=== PATIENT | male | born 1935 | race Caucasian/White ===

== ENCOUNTER 2019-01-11 17:26 | Inpatient (IN) | payer MEDICARE ==
[2019-01-11 17:26] VITALS: BMI 23.3
[2019-01-11] MEDS ORDERED: Iohexol 240 (50 ml) PO ONE (18:01)
--- NOTE | 2019-01-11 18:13 | ED PDOC ---
HPI: Abdomen Time Seen by Provider: 01/11/19 17:35 Chief Complaint (Nursing): Abdominal Pain Chief Complaint (Provider): Abdominal Pain History Per: Patient History/Exam Limitations: no limitations Onset/Duration Of Symptoms: Days (yesterday) Current Symptoms Are (Timing): Still Present Location Of Pain/Discomfort: RLQ Quality Of Discomfort: "Pain" Associated Symptoms: Vomiting (x1). denies: Nausea, Diarrhea, Chest Pain, Constipation Additional Complaint(s): 83 year old male with no significant past medical history presents to the ED with right sided abdominal pain onset yesterday. Patient reports he had 1 episode of green vomit yesterday but has not vomited since. He denies any nausea , chest pain, shortness of breath, headache, dizziness or groin pain. He did not take any medications for relief. PMD: none provided Past Medical History Reviewed: Historical Data, Nursing Documentation, Vital Signs Vital Signs: Last Vital Signs Temp 98.5 F 01/11/19 17:28 Pulse 97 H 01/11/19 17:28 Resp 20 01/11/19 17:28 BP 141/84 01/11/19 17:28 Pulse Ox 100 01/11/19 17:28 - Medical History PMH: HTN - Surgical History Other surgeries: prostate surgery - Family History Family History: States: Unknown Family Hx - Immunization History Hx Tetanus Toxoid Vaccination: No Hx Influenza Vaccination: No Hx Pneumococcal Vaccination: No - Home Medications Home Medications: Ambulatory Orders Medication Instructions Recorded No Known Home Med 06/14/18 - Allergies Allergies/Adverse Reactions: Allergies Allergy/AdvReac Type Severity Reaction Status Date / Time No Known Allergies Allergy Verified 06/14/18 11:47 Review of Systems ROS Statement: Except As Marked, All Systems Reviewed And Found Negative Cardiovascular: Negative for: Chest Pain Respiratory: Negative for: Shortness of Breath Gastrointestinal: Positive for: Vomiting, Abdominal Pain. Negative for: Nausea, Diarrhea, Constipation Genitourinary Male: Positive for: Other (no groin pain) Neurological: Negative for: Headache, Dizziness Physical Exam - Reviewed Nursing Documentation Reviewed: Yes Vital Signs Reviewed: Yes - Physical Exam Appears: Positive for: Non-toxic, No Acute Distress Head Exam: Positive for: ATRAUMATIC, NORMOCEPHALIC Skin: Positive for: Normal Color, Warm, Dry Eye Exam: Positive for: Normal appearance, EOMI, PERRL ENT: Positive for: Normal ENT Inspection Neck: Positive for: Normal, Painless ROM, Supple Cardiovascular/Chest: Positive for: Regular Rate, Rhythm. Negative for: Murmur Respiratory: Positive for: Normal Breath Sounds. Negative for: Respiratory Distress Gastrointestinal/Abdominal: Positive for: Tenderness (right lower quadrant tenderness), Guarding (mild) Back: Positive for: Normal Inspection. Negative for: L CVA Tenderness, R CVA Tenderness Extremity: Positive for: Normal ROM (upper and lower). Negative for: Tende rness, Pedal Edema, Deformity Neurological/Psych: Positive for: Awake, Alert, Oriented - Laboratory Results Result Diagrams: 01/11/19 17:45 01/11/19 17:45 Interpretation Of Abn Labs: 27 wbc, 2.2 cr - ECG ECG: Positive for: Interpreted By Me, Viewed By Me ECG Rhythm: Positive for: Normal ST Segment, Sinus Rhythm O2 Sat by Pulse Oximetry: 100 (RA) Pulse Ox Interpretation: Normal - Radiology X-Ray: Interpreted by Me, Viewed By Me X-Ray Interpretation: No Acute Disease - Progress ED Course And Treament: 1824: Stable. AAOx3. Spoke with ophthalmic surgical assistant. Will see pt. in the ER. Antibiotics started for possible appendicitis. VBG pending. 1900: WBC elevated. Dr. Moser to fu on ct. AAOx3. No IV contrast as pt. gfr abnormal. Fluids going. Lactate wnl. Septic, but not code sepsis at this time. Medical Decision Making Medical Decision Making: Time: 1757 Plan: --EKG --VBG --CT abdomen and pelvis --CMP --BNP --Lipase --Magnesium --Phosphorus --Troponin --U dip --CBC --PTT --PT/INR --CXR --Blood culture --Urine culture --Pepcid --Toradol --UA Time: 1848 CXR: FINDINGS: LUNGS: The lungs are well inflated and clear. PLEURA: No large pleural effusions or pneumothorax. CARDIOVASCULAR: The heart is normal in size. No aortic atherosclerotic calcifications present. OSSEOUS STRUCTURES: Within normal limits for the patient's age. VISUALIZED UPPER ABDOMEN: Normal. OTHER FINDINGS: None. IMPRESSION: No active pulmonary disease. ScribeAttestation: Documented byFrancine Pahn, acting as a scribe for Yanick Casey MD. Provider ScribeAttestation: All medical record entries made by the Scribe were at my direction and personally dictated by me. I have reviewed the chart and agree that the record accurately reflects my personal performance of the history, physical exam, medical decision making, and the department course for this patient. I have also personally directed, reviewed, and agree with the discharge instructions and disposition. Disposition - Clinical Impression Clinical Impression: Abdominal pain - Patient ED Disposition Is Patient to be Admitted: Transfer of Care - Disposition Disposition Time: 19:02 Condition: FAIR Patient Signed Over To: Walter Sommer
[2019-01-11] MEDS: Sodium Chloride 0.9% 1,000 ML IV SCH (18:20)
[2019-01-11] MEDS ORDERED: Piperacillin/Tazobact 3.375 GM in Sodium Chloride 0.9% 100 ML IV STA (18:23)
--- NOTE | 2019-01-11 18:27 | RAD ---
Date of service: 01/11/2019 HISTORY: Sepsis Patient COMPARISON: No prior. FINDINGS: LUNGS: The lungs are well inflated and clear. PLEURA: No large pleural effusions or pneumothorax. CARDIOVASCULAR: The heart is normal in size. No aortic atherosclerotic calcifications present. OSSEOUS STRUCTURES: Within normal limits for the patient's age. VISUALIZED UPPER ABDOMEN: Normal. OTHER FINDINGS: None. IMPRESSION: No active pulmonary disease.
[2019-01-11 18:29] LABS: BASO % 0.1 % (0.0-2.0); HEMOGLOBIN 14.1 g/dL (12.0-18.0); LYMPH # 1.2 K/uL (1.0-4.3); LYMPH % 4.3 % (20.0-40.0); MEAN CELL VOLUME 89.9 fl (80.0-94.0); MEAN CORPUSCULAR HEMOGLOBIN 29.6 pg (27.0-31.0); MEAN CORPUSCULAR HGB CONC 32.9 g/dL (33.0-37.0); MEAN PLATELET VOLUME 9.1 fl (7.2-11.7); MONO # 2.1 K/uL (0.0-0.8); MONO % 7.6 % (0.0-10.0); NEUT # 23.8 K/uL (1.8-7.0); PLATELET COUNT 267 K/uL (130-400); RBC 4.78 Mil/uL (4.40-5.90); RED CELL DISTRIBUTION WIDTH 14.4 % (11.5-14.5)
[2019-01-11 18:30] LABS: VENOUS BLOOD GAS BASE EXCESS 1.3 mmol/L (0.0-2.0); VENOUS BLOOD GAS PCO2 36 mmHg (40-60); VENOUS BLOOD GAS PO2 24 mm/Hg (30-55); VENOUS BLOOD PH 7.45 (7.32-7.43)
[2019-01-11] MEDS ORDERED: Piperacillin/Tazobact 3.375 gm Inj IVPB ONE (18:31)
[2019-01-11 18:35] LABS: INR 1.3; PROTHROMBIN TIME 14.9 Seconds (9.8-13.1)
[2019-01-11 18:38] LABS: PARTIAL THROMBOPLASTIN TIME 34.7 Seconds (25.6-37.1)
[2019-01-11 18:39] LABS: ALB/GLOB RATIO 1.2 (1.0-2.1); ALBUMIN 4.4 g/dL (3.5-5.0); CALCIUM 9.3 mg/dL (8.4-10.2)
[2019-01-11 18:44] LABS: VENOUS BLOOD GAS BASE EXCESS -0.2 mmol/L (0.0-2.0); VENOUS BLOOD GAS PCO2 37 mmHg (40-60); VENOUS BLOOD GAS PO2 44 mm/Hg (30-55); VENOUS BLOOD PH 7.42 (7.32-7.43)
[2019-01-11 18:50] LABS: TROPONIN I 0.039 ng/mL (0.00-0.120)
--- NOTE | 2019-01-11 19:18 | ED PDOC ---
- Laboratory Results Result Diagrams: 01/12/19 04:25 01/12/19 04:25 Lab Results: pO2 44 mm/Hg (30-55) 01/11/19 18:40 VBG pH 7.42 (7.32-7.43) 01/11/19 18:40 VBG pCO2 37 mmHg (40-60) L 01/11/19 18:40 VBG HCO3 24.3 mmol/L 01/11/19 18:40 VBG Total CO2 25.1 mmol/L (22-28) 01/11/19 18:40 VBG O2 Sat (Calc) 88.0 % (40-65) H 01/11/19 18:40 VBG Base Excess -0.2 mmol/L (0.0-2.0) L 01/11/19 18:40 VBG Potassium 4.2 mmol/L (3.6-5.2) 01/11/19 18:40 Sodium 136.0 mmol/L (132-148) 01/11/19 18:40 Chloride 103.0 mmol/L (98-107) 01/11/19 18:40 Glucose 136 mg/dL (75-110) H 01/11/19 18:40 Lactate 1.8 mmol/L (0.7-2.1) 01/11/19 18:40 FiO2 21.0 % 01/11/19 18:40 Crit Value Called To Dr lashon casey 01/11/19 18:18 Crit Value Called By Zoey henriquez rt 01/11/19 18:18 Crit Value Read Back Y 01/11/19 18:18 Blood Gas Notified Time 1830 01/11/19 18:18 PT 14.9 Seconds (9.8-13.1) H 01/11/19 17:45 INR 1.3 01/11/19 17:45 APTT 34.7 Seconds (25.6-37.1) 01/11/19 17:45 Troponin I 0.0390 ng/mL (0.00-0.120) 01/11/19 17:45 NT-Pro-B Natriuret Pep 7620 pg/ml (0-900) H 01/11/19 17:45 Total Bilirubin 1.4 mg/dl (0.2-1.3) H 01/11/19 17:45 AST 38 U/L (17-59) 01/11/19 17:45 ALT 78 U/L (21-72) H 01/11/19 17:45 Alkaline Phosphatase 109 U/L (38-126) 01/11/19 17:45 Total Protein 8.1 G/DL (6.3-8.2) 01/11/19 17:45 Albumin 4.4 g/dL (3.5-5.0) 01/11/19 17:45 Globulin 3.7 gm/dL (2.2-3.9) 01/11/19 17:45 Albumin/Globulin Ratio 1.2 (1.0-2.1) 01/11/19 17:45 Lipase 19 U/L (23-300) L 01/11/19 17:45 - ECG O2 Sat by Pulse Oximetry: 100 (RA) Pulse Ox Interpretation: Normal Medical Decision Making Medical Decision Making: Time: 1899 --Patient signed out to this provider by Dr. Casey, pending CT, surgical consult , and final disposition. Patient evaluated at beside, vitals are stable. Patient resting in bed comfortably. Time: 2017 --Dr. Valverde, surgical assist evaluated patient in ED. She will discuss findings with her attending in Dr. Kim. Time: 2199 CT Abdomen and Pelvis FINDINGS: LUNG BASES: The lung bases appear clear. No pleural effusions are seen. LIVER: Unremarkable. GALLBLADDER AND BILE DUCTS: Tiny cholelithiasis is noted. There is gallbladder wall thickening noted which m easured up to 6.4 mm transversely. Pericholecystic haziness is present thought compatible with acute cholecystitis. No biliary ductal dilatation is evident. PANCREAS: Unremarkable. SPLEEN: Unremarkable. ADRENAL GLANDS: Unremarkable. KIDNEYS, URETERS, AND BLADDER: The kidneys appear within normal limits. There is no hydronephrosis or hydroureter. There is a large 1.7 x 1.5 cm calculus in the lower right renal pole. A 2.7 x 2.8 cm cyst is noted in the mid left renal pole. The urinary bladder appeared normal in size and configuration. STOMACH AND BOWEL: Unremarkable appearance of the stomach and bowel. No evidence of bowel obstruction. There is diverticulosis coli seen in the sigmoid and rectosigmoid colon. There is mucosal wall thickening seen in these regions and pericolonic haziness thought compatible with acute diverticulitis. No definite microperforation or pericolonic abscess formation is identified. APPENDIX: No evidence of acute appendicitis on CT examination. PERITONEUM: No free fluid. No free air. A small left inguinal hernia is identified which contains fat. LYMPH NODES: No lymphadenopathy is evident. REPRODUCTIVE: Status post prostatectomy. VASCULATURE: No evidence of abdominal aortic aneurysm. Minor atherosclerotic vascular plaquing is present. BONES: No aggressive appearing osseous lesion. No acute osseous pathology evident. 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 IMPRESSION: 1. Evidence of cholelithiasis. 2. Gallbladder wall thickening and isak-cholecystic haziness thought compatible with acute cholecystitis. 3. Diverticulosis coli without evidence of acute diverticulitis in the sigmoid and rectosigmoid regions. 4. 1.7 cm non-obstructing calculus in the lower right renal pole. 5. 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 6. Status post prostatectomy. Time: 2247 --Case discussed with Dr. Romo, who wants the patient admitted to hospitalist. Will order a high DA scan for gallbladder. Otherwise, he agrees with the plan of care. ScribeAttestation: Documented byFrancine Phan, acting as a scribe for Walter Sommer MD. Provider ScribeAttestation: All medical record entries made by the Scribe were at my direction and personally dictated by me. I have reviewed the chart and agree that the record accurately reflects my personal performance of the history, physical exam, medical decision making, and the department course for this patient. I have also personally directed, reviewed, and agree with the discharge instructions and disposition. Disposition Discussed With DrAmado: Karthik Hare Counseled Patient/Family Regarding: Studies Performed, Diagnosis - Clinical Impression Clinical Impression: Abdominal pain, Acute cholecystitis, Acute renal injury due to sepsis, Severe sepsis - POA Present On Arrival: None - Disposition Disposition: Admitted as In-Patient Disposition Time: 22:30 Condition: FAIR
[2019-01-11 19:46] LABS: BANDS 1 % (0-2); EOSINOPHIL 1 % (0-7); LYMPHOCYTE 4 % (20-50); MONOCYTE 8 % (0-10); NEUTROPHIL 86 % (42-75); PLATELET ESTIMATE NORMAL (NORMAL); TOTAL CELLS COUNTED 100
[2019-01-11] MEDS ORDERED: Vancomycin 1 g Inj ONE (22:10)
--- NOTE | 2019-01-11 22:47 | CP.PCM.CON ---
<Christine Valverde - Last Filed: 01/11/19 22:40> History of Present Illness - History of Present Illness History of Present Illness: General Surgery-Dr. Romo 83yo M w/ hx of nephrolithiasis and prostatectomy 20 years ago, presenting with RLQ abdominal pain and vomiting x1 day. Per the patient's at bedside pt began complaining of RLQ abdominal pain yesterday morning, moderate and constant in nature, 03/04. He had associated vomiting of bilious fluid and not able to keep anything down. He denies any fevers/chills, SOB/chest pain, Diarrhea/Constipation. Pt states his last BM was yesterday and was normal. He does not recall last time he was able to urinate. PMH: Nephrolithiasis, does not see a DR regularly PSH: Prostatectomy 20 years ago, pt is unsure if this was for cancer No home meds NKDA Never Smoked, Occasional ETOH, NO drug use Review of Systems - Review of Systems All systems: reviewed and no additional remarkable complaints except (as per HPI) Past Patient History - Infectious Disease Hx of Infectious Diseases: None - Past Social History Smoking Status: Never Smoked - CARDIAC Hx Hypertension: Yes - GENITOURINARY/GYNECOLOGICAL Hx Genitourinary Disorders: Yes Hx Prostate Problems: Yes - PSYCHIATRIC Hx Substance Use: No - SURGICAL HISTORY Hx Surgeries: Yes Other/Comment: PROSTATE? - ANESTHESIA Hx Anesthesia: Yes Hx Anesthesia Reactions: No Meds Allergies/Adverse Reactions: Allergies Allergy/AdvReac Type Severity Reaction Status Date / Time No Known Allergies Allergy Verified 06/14/18 11:47 - Medications Medications: Current Medications Sodium Chloride (Sodium Chloride 0.9%) 1,000 mls @ 1,000 mls/hr IV .Q1H NANETTE Last Admin: 01/11/19 18:20 Dose: 1,000 mls/hr Vancomycin HCl 1 gm/ Sodium (Chloride) 250 mls @ 250 mls/hr IVPB STAT NANETTE; Protocol Last Admin: 01/11/19 22:13 Dose: 250 mls/hr Sodium Chloride (Sodium Chloride 0.9%) 1,000 mls @ 100 mls/hr IV .Q10H NANETTE Stop: 01/12/19 22:38 Piperacillin Sod/Tazobactam (Sod 2.25 gm/ Sodium Chloride) 100 mls @ 100 mls/hr IVPB Q6 NANETTE; Protocol Physical Exam - Constitutional Appears: No Acute Distress - Head Exam Head Exam: ATRAUMATIC, NORMAL INSPECTION, NORMOCEPHALIC - Eye Exam Eye Exam: EOMI, Normal appearance - ENT Exam ENT Exam: Mucous Membranes Dry - Respiratory Exam Respiratory Exam: NORMAL BREATHING PATTERN. absent: Respiratory Distress - Cardiovascular Exam Cardiovascular Exam: REGULAR RHYTHM - GI/Abdominal Exam GI & Abdominal Exam: Soft, Tenderness (RLQ and RUQ tenderness to palpation). absent: Distended, Firm, Guarding, Hernia, Rebound, Rigid - Neurological Exam Neurological exam: Alert, Oriented x3 - Psychiatric Exam Psychiatric exam: Normal Affect, Normal Mood - Skin Skin Exam: Dry, Intact, Normal Color Results - Vital Signs Recent Vital Signs: Last Vital Signs Temp 98.5 F 01/11/19 17:28 Pulse 97 H 01/11/19 17:28 Resp 20 01/11/19 17:28 BP 141/84 01/11/19 17:28 Pulse Ox 100 01/11/19 22:15 - Labs Result Diagrams: 01/11/19 17:45 01/11/19 17:45 Labs: Laboratory Results - last 24 hr 01/11/19 01/11/19 01/11/19 17:42 17:45 17:45 WBC 27.0 H RBC 4.78 Hgb 14.1 Hct 42.9 MCV 89.9 MCH 29.6 MCHC 32.9 L RDW 14.4 Plt Count 267 MPV 9.1 Neut % (Auto) 88.0 H Lymph % (Auto) 4.3 L [place] % (Auto) 7.6 Eos % (Auto) 0.0 Baso % (Auto) 0.1 Neut # (Auto) 23.8 H Lymph # (Auto) 1.2 [place] # (Auto) 2.1 H Eos # (Auto) 0.0 Baso # (Auto) 0.0 Neutrophils % (Manual) 86 H Band Neutrophils % 1 Lymphocytes % (Manual) 4 L Monocytes % (Manual) 8 Eosinophils % (Manual) 1 Platelet Estimate Normal RBC Morphology Normal PT INR APTT pO2 VBG pH VBG pCO2 VBG HCO3 VBG Total CO2 VBG O2 Sat (Calc) VBG Base Excess VBG Potassium Glucose Lactate FiO2 Crit Value Called To Crit Value Called By Crit Value Read Back Blood Gas Notified Time Sodium 139 Potassium 4.2 Chloride 99 Carbon Dioxide 24 Anion Gap 20 BUN 37 H Creatinine 2.2 H Est GFR ( Amer) 35 Est GFR (Non-Af Amer) 29 POC Glucose (mg/dL) 139 H Random Glucose 133 H Calcium 9.3 Phosphorus 3.5 Magnesium 2.2 Total Bilirubin 1.4 H AST 38 ALT 78 H Alkaline Phosphatase 109 Troponin I 0.0390 NT-Pro-B Natriuret Pep 7620 H Total Protein 8.1 Albumin 4.4 Globulin 3.7 Albumin/Globulin Ratio 1.2 Lipase 19 L Venous Blood Potassium 01/11/19 01/11/19 01/11/19 17:45 18:18 18:40 WBC RBC Hgb Hct MCV MCH MCHC RDW Plt Count MPV Neut % (Auto) Lymph % (Auto) [place] % (Auto) Eos % (Auto) Baso % (Auto) Neut # (Auto) Lymph # (Auto) [place] # (Auto) Eos # (Auto) Baso # (Auto) Neutrophils % (Manual) Band Neutrophils % Lymphocytes % (Manual) Monocytes % (Manual) Eosinophils % (Manual) Platelet Estimate RBC Morphology PT 14.9 H INR 1.3 APTT 34.7 pO2 24 L 44 VBG pH 7.45 H 7.42 VBG pCO2 36 L 37 L VBG HCO3 24.6 24.3 VBG Total CO2 26.1 25.1 VBG O2 Sat (Calc) 52.2 88.0 H VBG Base Excess 1.3 -0.2 L VBG Potassium 4.2 Glucose 123 H 136 H Lactate 3.5 H 1.8 FiO2 21.0 21.0 Crit Value Called To Dr lashon schroeder Crit Value Called By Zoey henriquez rt Crit Value Read Back Y Blood Gas Notified Time 1830 Sodium 193.0 H* 136.0 Potassium Chloride 115.0 H 103.0 Carbon Dioxide Anion Gap BUN Creatinine Est GFR ( Amer) Est GFR (Non-Af Amer) POC Glucose (mg/dL) Random Glucose Calcium Phosphorus Magnesium Total Bilirubin AST ALT Alkaline Phosphatase Troponin I NT-Pro-B Natriuret Pep Total Protein Albumin Globulin Albumin/Globulin Ratio Lipase Venous Blood Potassium 4.2 - Imaging and Cardiology CT scan - abdomen Status: Image reviewed by me, Report reviewed by me Assessment & Plan - Assessment and Plan (Free Text) Assessment: 83 yo M w/ RLQ abdominal pain and Vomiting x1 day, CT findings of possible cholecystitis -Admit to medical service -Maintain NPO -IVF hydration -IV Abx - Zosyn/Vanco -Young catheter if unable to void -F/U HIDA scan to further evaluate for GB pathology -F/U Am labs DW Dr Demetrius Valverde PGY4 <Cesar Romo - Last Filed: 01/12/19 16:21> History of Present Illness - History of Present Illness History of Present Illness: Patient was seen and examined at the bedside. Agree with resident's note above. Meds - Medications Medications: Current Medications Acetaminophen (Tylenol 325 Mg Supp) 325 mg VT Q4 PRN PRN Reason: Pain, Mild (1-3) Vancomycin HCl 1 gm/ Sodium (Chloride) 250 mls @ 250 mls/hr IVPB STAT NANETTE; Protocol Last Admin: 01/11/19 22:13 Dose: 250 mls/hr Sodium Chloride (Sodium Chloride 0.9%) 1,000 mls @ 100 mls/hr IV .Q10H NANETTE Stop: 01/12/19 22:38 Last Admin: 01/12/19 09:21 Dose: 100 mls/hr Piperacillin Sod/Tazobactam (Sod 2.25 gm/ Sodium Chloride) 100 mls @ 100 mls/hr IVPB Q6 NANETTE; Protocol Last Admin: 01/12/19 09:17 Dose: 100 mls/hr Ketorolac Tromethamine (Toradol) 15 mg IVP Q6 PRN PRN Reason: Pain, moderate (4-7) Morphine Sulfate (Morphine) 2 mg IVP Q4 PRN PRN Reason: Pain, severe (8-10) Ondansetron HCl (Zofran Inj) 4 mg IVP Q4 PRN PRN Reason: Nausea/Vomiting Physical Exam - GI/Abdominal Exam Additional comments: soft, RUQ tenderness, ND, BS+, no rebound, no guarding, + Ramos's sign, well he aled lower abdominal scar from prior prostatectomy Results - Vital Signs Recent Vital Signs: Last Vital Signs Temp 98.6 F 01/12/19 16:13 Pulse 75 01/12/19 16:13 Resp 16 01/12/19 16:13 BP 144/77 01/12/19 16:13 Pulse Ox 95 01/12/19 16:13 - Labs Result Diagrams: 01/12/19 04:25 01/12/19 04:25 Labs: Laboratory Results - last 24 hr 01/11/19 01/11/19 01/11/19 17:42 17:45 17:45 WBC 27.0 H RBC 4.78 Hgb 14.1 Hct 42.9 MCV 89.9 MCH 29.6 MCHC 32.9 L RDW 14.4 Plt Count 267 MPV 9.1 Neut % (Auto) 88.0 H Lymph % (Auto) 4.3 L [place] % (Auto) 7.6 Eos % (Auto) 0.0 Baso % (Auto) 0.1 Neut # (Auto) 23.8 H Lymph # (Auto) 1.2 [place] # (Auto) 2.1 H Eos # (Auto) 0.0 Baso # (Auto) 0.0 Neutrophils % (Manual) 86 H Band Neutrophils % 1 Lymphocytes % (Manual) 4 L Monocytes % (Manual) 8 Eosinophils % (Manual) 1 Platelet Estimate Normal RBC Morphology Normal PT INR APTT pO2 VBG pH VBG pCO2 VBG HCO3 VBG Total CO2 VBG O2 Sat (Calc) VBG Base Excess VBG Potassium Glucose Lactate FiO2 Crit Value Called To Crit Value Called By Crit Value Read Back Blood Gas Notified Time Sodium 139 Potassium 4.2 Chloride 99 Carbon Dioxide 24 Anion Gap 20 BUN 37 H Creatinine 2.2 H Est GFR ( Amer) 35 Est GFR (Non-Af Amer) 29 POC Glucose (mg/dL) 139 H Random Glucose 133 H Calcium 9.3 Phosphorus 3.5 Magnesium 2.2 Total Bilirubin 1.4 H AST 38 ALT 78 H Alkaline Phosphatase 109 Troponin I 0.0390 NT-Pro-B Natriuret Pep 7620 H Total Protein 8.1 Albumin 4.4 Globulin 3.7 Albumin/Globulin Ratio 1.2 Lipase 19 L Venous Blood Potassium Urine Color Urine Clarity Urine pH Ur Specific [place] Urine Protein Urine Glucose (UA) Urine Ketones Urine Blood Urine Nitrate Urine Bilirubin Urine Urobilinogen Ur Leukocyte Esterase Urine RBC (Auto) Urine Microscopic WBC Amorphous Sediment 01/11/19 01/11/19 01/11/19 17:45 18:18 18:40 WBC RBC Hgb Hct MCV MCH MCHC RDW Plt Count MPV Neut % (Auto) Lymph % (Auto) [place] % (Auto) Eos % (Auto) Baso % (Auto) Neut # (Auto) Lymph # (Auto) [place] # (Auto) Eos # (Auto) Baso # (Auto) Neutrophils % (Manual) Band Neutrophils % Lymphocytes % (Manual) Monocytes % (Manual) Eosinophils % (Manual) Platelet Estimate RBC Morphology PT 14.9 H INR 1.3 APTT 34.7 pO2 24 L 44 VBG pH 7.45 H 7.42 VBG pCO2 36 L 37 L VBG HCO3 24.6 24.3 VBG Total CO2 26.1 25.1 VBG O2 Sat (Calc) 52.2 88.0 H VBG Base Excess 1.3 -0.2 L VBG Potassium 4.2 Glucose 123 H 136 H Lactate 3.5 H 1.8 FiO2 21.0 21.0 Crit Value Called To Dr lashon schroeder Crit Value Called By Zoey henriquez rt Crit Value Read Back Y Blood Gas Notified Time 1830 Sodium 193.0 H* 136.0 Potassium Chloride 115.0 H 103.0 Carbon Dioxide Anion Gap BUN Creatinine Est GFR ( Amer) Est GFR (Non-Af Amer) POC Glucose (mg/dL) Random Glucose Calcium Phosphorus Magnesium Total Bilirubin AST ALT Alkaline Phosphatase Troponin I NT-Pro-B Natriuret Pep Total Protein Albumin Globulin Albumin/Globulin Ratio Lipase Venous Blood Potassium 4.2 Urine Color Urine Clarity Urine pH Ur Specific [place] Urine Protein Urine Glucose (UA) Urine Ketones Urine Blood Urine Nitrate Urine Bilirubin Urine Urobilinogen Ur Leukocyte Esterase Urine RBC (Auto) Urine Microscopic WBC Amorphous Sediment 01/12/19 01/12/19 01/12/19 04:25 04:25 13:00 WBC 21.7 H RBC 4.17 L Hgb 12.4 Hct 38.2 MCV 91.4 MCH 29.8 MCHC 32.6 L RDW 14.3 Plt Count 195 MPV 9.3 Neut % (Auto) 89.6 H Lymph % (Auto) 4.8 L [place] % (Auto) 5.5 Eos % (Auto) 0.0 Baso % (Auto) 0.1 Neut # (Auto) 19.5 H Lymph # (Auto) 1.0 [place] # (Auto) 1.2 H Eos # (Auto) 0.0 Baso # (Auto) 0.0 Neutrophils % (Manual) Band Neutrophils % Lymphocytes % (Manual) Monocytes % (Manual) Eosinophils % (Manual) Platelet Estimate RBC Morphology PT INR APTT pO2 VBG pH VBG pCO2 VBG HCO3 VBG Total CO2 VBG O2 Sat (Calc) VBG Base Excess VBG Potassium Glucose Lactate FiO2 Crit Value Called To Crit Value Called By Crit Value Read Back Blood Gas Notified Time Sodium 138 Potassium 4.0 Chloride 104 Carbon Dioxide 23 Anion Gap 15 BUN 46 H Creatinine 2.2 H Est GFR ( Amer) 35 Est GFR (Non-Af Amer) 29 POC Glucose (mg/dL) Random Glucose 101 Calcium 8.6 Phosphorus Magnesium Total Bilirubin 1.1 AST 30 ALT 65 Alkaline Phosphatase 93 Troponin I NT-Pro-B Natriuret Pep Total Protein 6.7 Albumin 3.6 Globulin 3.1 Albumin/Globulin Ratio 1.2 Lipase Venous Blood Potassium Urine Color Yellow Urine Clarity Cloudy Urine pH 5.0 Ur Specific [place] 1.020 Urine Protein 30 Urine Glucose (UA) Neg Urine Ketones Negative Urine Blood Moderate Urine Nitrate Negative Urine Bilirubin Negative Urine Urobilinogen 0.2-1.0 Ur Leukocyte Esterase Neg Urine RBC (Auto) 7 H Urine Microscopic WBC 5 Amorphous Sediment Rare H Assessment & Plan - Assessment and Plan (Free Text) Plan: - Keep on clear liquid diet - pain control - Continue antibiotics - Cardiology consultation - IV fluid hydration - RUQ ultrasound - Interventional Radiology consultation for placement of cholecystostomy tube - Repeat labs in am - Patient was d/w Dr. Hutchins - Will follow
--- NOTE | 2019-01-11 23:07 | CP.PCM.HP ---
History of Present Illness - History of Present Illness History of Present Illness: Patient poor historian, no family at bedside, history by ED doctor and pt. 83 year old male with PMH of HTN presents to the ED with right sided sharp abdominal pain onset yesterday. Pain does not radiates and denies aggravating or alleviating factors. He did not take any medication for pain. Associated 1 episode of nbnb vomit yesterday. No relation with any food. He denies any nausea or pain at this time, fever, chills, diarrhea or constipation, chest pain, shortness of breath, headache, dizziness or groin pain. No urinary sx. PMD: none provided PMH: HTN PSH: prostate surgery, unable to recall reason of surgery FMH: unknown No home meds NKDA SH: denies etoh, tobacco or ilicit drugs use. Present on Admission - Present on Admission Any Indicators Present on Admission: No Review of Systems - Review of Systems All systems: reviewed and no additional remarkable complaints except (HPI) Past Patient History - Infectious Disease Hx of Infectious Diseases: None - Past Social History Smoking Status: Never Smoked - CARDIAC Hx Hypertension: Yes - GENITOURINARY/GYNECOLOGICAL Hx Genitourinary Disorders: Yes Hx Prostate Problems: Yes - PSYCHIATRIC Hx Substance Use: No - SURGICAL HISTORY Hx Surgeries: Yes Other/Comment: PROSTATE? - ANESTHESIA Hx Anesthesia: Yes Hx Anesthesia Reactions: No Meds Allergies/Adverse Reactions: Allergies Allergy/AdvReac Type Severity Reaction Status Date / Time No Known Allergies Allergy Verified 06/14/18 11:47 Physical Exam - Constitutional Appears: No Acute Distress - Head Exam Head Exam: NORMAL INSPECTION - Eye Exam Eye Exam: EOMI, PERRL - Respiratory Exam Respiratory Exam: Clear to Auscultation Bilateral, NORMAL BREATHING PATTERN - Cardiovascular Exam Cardiovascular Exam: REGULAR RHYTHM, +S1, +S2. absent: Tachycardia, Systolic Murmur - GI/Abdominal Exam GI & Abdominal Exam: Normal Bowel Sounds, Soft, Tenderness (RLQ and RUQ, nguyen sign negative). absent: Distended, Guarding, Rebound - Extremities Exam Extremities exam: Negative for: pedal edema - Neurological Exam Neurological exam: Alert Additional comments: Oriented to person and place - Skin Skin Exam: Dry, Warm Results - Vital Signs Recent Vital Signs: Last Vital Signs Temp 98.8 F 01/11/19 22:54 Pulse 66 01/11/19 22:54 Resp 16 04/19/19 22:54 BP 118/67 01/11/19 22:54 Pulse Ox 100 01/11/19 22:56 - Labs Result Diagrams: 01/11/19 17:45 01/11/19 17:45 Labs: Laboratory Results - last 24 hr 01/11/19 01/11/19 01/11/19 17:42 17:45 17:45 WBC 27.0 H RBC 4.78 Hgb 14.1 Hct 42.9 MCV 89.9 MCH 29.6 MCHC 32.9 L RDW 14.4 Plt Count 267 MPV 9.1 Neut % (Auto) 88.0 H Lymph % (Auto) 4.3 L [place] % (Auto) 7.6 Eos % (Auto) 0.0 Baso % (Auto) 0.1 Neut # (Auto) 23.8 H Lymph # (Auto) 1.2 [place] # (Auto) 2.1 H Eos # (Auto) 0.0 Baso # (Auto) 0.0 Neutrophils % (Manual) 86 H Band Neutrophils % 1 Lymphocytes % (Manual) 4 L Monocytes % (Manual) 8 Eosinophils % (Manual) 1 Platelet Estimate Normal RBC Morphology Normal PT INR APTT pO2 VBG pH VBG pCO2 VBG HCO3 VBG Total CO2 VBG O2 Sat (Calc) VBG Base Excess VBG Potassium Glucose Lactate FiO2 Crit Value Called To Crit Value Called By Crit Value Read Back Blood Gas Notified Time Sodium 139 Potassium 4.2 Chloride 99 Carbon Dioxide 24 Anion Gap 20 BUN 37 H Creatinine 2.2 H Est GFR ( Amer) 35 Est GFR (Non-Af Amer) 29 POC Glucose (mg/dL) 139 H Random Glucose 133 H Calcium 9.3 Phosphorus 3.5 Magnesium 2.2 Total Bilirubin 1.4 H AST 38 ALT 78 H Alkaline Phosphatase 109 Troponin I 0.0390 NT-Pro-B Natriuret Pep 7620 H Total Protein 8.1 Albumin 4.4 Globulin 3.7 Albumin/Globulin Ratio 1.2 Lipase 19 L Venous Blood Potassium 01/11/19 01/11/19 01/11/19 17:45 18:18 18:40 WBC RBC Hgb Hct MCV MCH MCHC RDW Plt Count MPV Neut % (Auto) Lymph % (Auto) [place] % (Auto) Eos % (Auto) Baso % (Auto) Neut # (Auto) Lymph # (Auto) [place] # (Auto) Eos # (Auto) Baso # (Auto) Neutrophils % (Manual) Band Neutrophils % Lymphocytes % (Manual) Monocytes % (Manual) Eosinophils % (Manual) Platelet Estimate RBC Morphology PT 14.9 H INR 1.3 APTT 34.7 pO2 24 L 44 VBG pH 7.45 H 7.42 VBG pCO2 36 L 37 L VBG HCO3 24.6 24.3 VBG Total CO2 26.1 25.1 VBG O2 Sat (Calc) 52.2 88.0 H VBG Base Excess 1.3 -0.2 L VBG Potassium 4.2 Glucose 123 H 136 H Lactate 3.5 H 1.8 FiO2 21.0 21.0 Crit Value Called To Dr lashon schroeder Crit Value Called By Zoey henriquez rt Crit Value Read Back Y Blood Gas Notified Time 1829 Sodium 193.0 H* 136.0 Potassium Chloride 115.0 H 103.0 Carbon Dioxide Anion Gap BUN Creatinine Est GFR ( Amer) Est GFR (Non-Af Amer) POC Glucose (mg/dL) Random Glucose Calcium Phosphorus Magnesium Total Bilirubin AST ALT Alkaline Phosphatase Troponin I NT-Pro-B Natriuret Pep Total Protein Albumin Globulin Albumin/Globulin Ratio Lipase Venous Blood Potassium 4.2 Assessment & Plan - Assessment and Plan (Free Text) Assessment: 83 year old male with PMH of HTN admitted with abdominal pain, r/o Acute cho lecystitis Plan: Abdominal pain, Acute cholecystitis? Sepsis? - admit to med/surg - VSS stable - leukocytosis, lactate 3.5> 1.8 - ABD/pelvis CT: cholelithiasis, Gallbladder wall thickening and isak- cholecystic haziness thought compatible with acute cholecystitis. Diverticulosis coli without evidence of acute diverticulitis in the sigmoid and rectosigmoid regions. 1.7 cm non-obstructing calculus in the lower right renal pole. - General surgery consulted - NPO - IVF - Pain management - started on vanco and zosyn per surgery team - zofran IV prn - for HIDA in am - labs and cx in am CKD stage 4 - BUN/Cr: 37/2.2 - GFR: 29 - gentle hydration - f/u labs in am HTN - controlled - asymptomatic - no home meds DVT ppx - scd for now Case discussed with Dr Hare
[2019-01-12] MEDS: Sodium Chloride 0.9% 1,000 ML IV SCH ×5 (01:22→17:50)
[2019-01-12 06:02] LABS: BASO % 0.1 % (0.0-2.0); HEMOGLOBIN 12.4 g/dL (12.0-18.0); LYMPH % 4.8 % (20.0-40.0); MEAN CELL VOLUME 91.4 fl (80.0-94.0); MEAN CORPUSCULAR HEMOGLOBIN 29.8 pg (27.0-31.0); MEAN CORPUSCULAR HGB CONC 32.6 g/dL (33.0-37.0); MEAN PLATELET VOLUME 9.3 fl (7.2-11.7); MONO # 1.2 K/uL (0.0-0.8); MONO % 5.5 % (0.0-10.0); NEUT # 19.5 K/uL (1.8-7.0); NEUT % 89.6 % (50.0-75.0); NRBC % 0.1 % (0.0-0.0); RBC 4.17 Mil/uL (4.40-5.90); RED CELL DISTRIBUTION WIDTH 14.3 % (11.5-14.5); WHITE BLOOD COUNT 21.7 K/uL (4.8-10.8)
[2019-01-12 06:37] LABS: ALB/GLOB RATIO 1.2 (1.0-2.1); ALBUMIN 3.6 g/dL (3.5-5.0); CALCIUM 8.6 mg/dL (8.4-10.2)
--- NOTE | 2019-01-12 07:55 | CP.PCM.PN ---
<Christine Valverde - Last Filed: 01/12/19 07:51> Subjective - Date & Time of Evaluation Date of Evaluation: 01/12/19 Time of Evaluation: 07:51 - Subjective Subjective: General surgery - Dr. Romo Pt S&E. TASHA. Pt states his pain is about the same, he describes it more as RUQ than RLQ this morning. He denies any nausea or vomiting. He states he has urinated and had a BM this morning which was normal. No fevers/chills/sob/chest pain. Objective - Vital Signs/Intake and Output Vital Signs (last 24 hours): Temp Pulse Resp BP Pulse Ox 98.2 F 69 18 145/74 97 01/12/19 04:52 01/12/19 04:52 01/12/19 04:52 01/12/19 04:52 01/12/19 04:52 - Medications Medications: Current Medications Acetaminophen (Tylenol 325 Mg Supp) 325 mg NC Q4 PRN PRN Reason: Pain, Mild (1-3) Sodium Chloride (Sodium Chloride 0.9%) 1,000 mls @ 1,000 mls/hr IV .Q1H NANETTE Last Admin: 01/11/19 18:20 Dose: 1,000 mls/hr Vancomycin HCl 1 gm/ Sodium (Chloride) 250 mls @ 250 mls/hr IVPB STAT NANETTE; Protocol Last Admin: 01/11/19 22:13 Dose: 250 mls/hr Sodium Chloride (Sodium Chloride 0.9%) 1,000 mls @ 100 mls/hr IV .Q10H NANETTE Stop: 01/12/19 22:38 Last Admin: 01/12/19 01:22 Dose: 100 mls/hr Piperacillin Sod/Tazobactam (Sod 2.25 gm/ Sodium Chloride) 100 mls @ 100 mls/hr IVPB Q6 NANETTE; Protocol Last Admin: 01/12/19 03:00 Dose: 100 mls/hr Sodium Chloride (Sodium Chloride 0.9%) 1,000 mls @ 1,000 mls/hr IV .Q1H NANETTE Stop: 01/12/19 08:59 Ketorolac Tromethamine (Toradol) 15 mg IVP Q6 PRN PRN Reason: Pain, moderate (4-7) Morphine Sulfate (Morphine) 2 mg IVP Q4 PRN PRN Reason: Pain, severe (8-10) Ondansetron HCl (Zofran Inj) 4 mg IVP Q4 PRN PRN Reason: Nausea/Vomiting - Labs Labs: 01/12/19 04:25 01/12/19 04:25 PT 14.9 Seconds (9.8-13.1) H 01/11/19 17:45 INR 1.3 01/11/19 17:45 APTT 34.7 Seconds (25.6-37.1) 01/11/19 17:45 - Constitutional Appears: No Acute Distress - Head Exam Head Exam: ATRAUMATIC, NORMAL INSPECTION, NORMOCEPHALIC - Eye Exam Eye Exam: Normal appearance - ENT Exam ENT Exam: Mucous Membranes Moist - Respiratory Exam Respiratory Exam: NORMAL BREATHING PATTERN. absent: Respiratory Distress - Cardiovascular Exam Cardiovascular Exam: REGULAR RHYTHM - GI/Abdominal Exam GI & Abdominal Exam: Guarding, Soft, Tenderness (RUQ). absent: Distended, Rebound - Neurological Exam Neurological Exam: Alert, Oriented x3 - Psychiatric Exam Psychiatric exam: Normal Affect, Normal Mood - Skin Skin Exam: Dry, Intact Assessment and Plan - Assessment and Plan (Free Text) Assessment: 83 yo M w/ cholelithiasis, possible cholecystitis -Continue NPO and IVF, additional IVF bolus this morning -Continue IV Abx - Zosyn/Vanco -F/U HIDA scan to further evaluate for GB pathology -Further reccs pending imaging DW Dr Demetrius Valverde PGY4 <Cesar Romo - Last Filed: 01/12/19 16:19> Subjective - Date & Time of Evaluation Time of Evaluation: 15:25 - Subjective Subjective: Patient was seen and examined at the bedside. Agree with resident's note above. Objective - Vital Signs/Intake and Output Vital Signs (last 24 hours): Temp Pulse Resp BP Pulse Ox 98.6 F 75 16 144/77 95 01/12/19 16:13 01/12/19 16:13 01/12/19 16:13 01/12/19 16:13 01/12/19 16:13 - Medications Medications: Current Medications Acetaminophen (Tylenol 325 Mg Supp) 325 mg NC Q4 PRN PRN Reason: Pain, Mild (1-3) Vancomycin HCl 1 gm/ Sodium (Chloride) 250 mls @ 250 mls/hr IVPB STAT NANETTE; Protocol Last Admin: 01/11/19 22:13 Dose: 250 mls/hr Sodium Chloride (Sodium Chloride 0.9%) 1,000 mls @ 100 mls/hr IV .Q10H NANETTE Stop: 01/12/19 22:38 Last Admin: 01/12/19 09:21 Dose: 100 mls/hr Piperacillin Sod/Tazobactam (Sod 2.25 gm/ Sodium Chloride) 100 mls @ 100 mls/hr IVPB Q6 NANETTE; Protocol Last Admin: 01/12/19 09:17 Dose: 100 mls/hr Ketorolac Tromethamine (Toradol) 15 mg IVP Q6 PRN PRN Reason: Pain, moderate (4-7) Morphine Sulfate (Morphine) 2 mg IVP Q4 PRN PRN Reason: Pain, severe (8-10) Ondansetron HCl (Zofran Inj) 4 mg IVP Q4 PRN PRN Reason: Nausea/Vomiting - Labs Labs: 01/12/19 04:25 01/12/19 04:25 PT 14.9 Seconds (9.8-13.1) H 01/11/19 17:45 INR 1.3 01/11/19 17:45 APTT 34.7 Seconds (25.6-37.1) 01/11/19 17:45 - GI/Abdominal Exam Additional comments: soft, RUQ tenderness, ND, BS+, no rebound, no guarding, + Ramso's sign, well healed lower abdominal scar from prior prostatectomy Assessment and Plan - Assessment and Plan (Free Text) Plan: - Keep on clear liquid diet - pain control - Continue antibiotics - Cardiology consultation - IV fluid hydration - RUQ ultrasound - Interventional Radiology consultation for placement of cholecystostomy tube - Repeat labs in am - Will follow
[2019-01-12] MEDS ORDERED: Sodium Chloride 0.9% 1,000 ML IV SCH (08:00)
--- NOTE | 2019-01-12 09:27 | CARD ---
APPROVED REPORT Date of service: 01/11/2019 EKG Measurement Heart [id number] MD [id number] <Conclusion> Normal sinus rhythm Left axis deviation Voltage criteria for left ventricular hypertrophy Anteroseptal infarct, age undetermined Abnormal ECG
--- NOTE | 2019-01-12 09:46 | CP.PCM.PN ---
<Rochelle Larkin - Last Filed: 01/12/19 09:44> Subjective - Date & Time of Evaluation Date of Evaluation: 01/12/19 Time of Evaluation: 09:44 - Subjective Subjective: 83 yo male with hx of HTN presented with abdominal pain, admitted to r/o cholecystitis. Patient seen and examined at bedside. Reports 4/10 RUQ pain. States he is otherwise comfortable without any complaints. No overnight events. No events on the tele monitor. Denies nausea, vomiting, abdominal pain, subjective fevers or chills, chest pain or dypsnea. Objective - Vital Signs/Intake and Output Vital Signs (last 24 hours): Temp Pulse Resp BP Pulse Ox 97.4 F L 68 20 149/76 95 01/12/19 08:41 01/12/19 08:41 01/12/19 08:41 01/12/19 08:41 01/12/19 08:41 - Medications Medications: Current Medications Acetaminophen (Tylenol 325 Mg Supp) 325 mg NV Q4 PRN PRN Reason: Pain, Mild (1-3) Vancomycin HCl 1 gm/ Sodium (Chloride) 250 mls @ 250 mls/hr IVPB STAT NANETTE; Protocol Last Admin: 01/11/19 22:13 Dose: 250 mls/hr Sodium Chloride (Sodium Chloride 0.9%) 1,000 mls @ 100 mls/hr IV .Q10H NANETTE Stop: 01/12/19 22:38 Last Admin: 01/12/19 09:21 Dose: 100 mls/hr Piperacillin Sod/Tazobactam (Sod 2.25 gm/ Sodium Chloride) 100 mls @ 100 mls/hr IVPB Q6 NANETTE; Protocol Last Admin: 01/12/19 09:17 Dose: 100 mls/hr Ketorolac Tromethamine (Toradol) 15 mg IVP Q6 PRN PRN Reason: Pain, moderate (4-7) Morphine Sulfate (Morphine) 2 mg IVP Q4 PRN PRN Reason: Pain, severe (8-10) Ondansetron HCl (Zofran Inj) 4 mg IVP Q4 PRN PRN Reason: Nausea/Vomiting - Labs Labs: 01/12/19 04:25 01/12/19 04:25 PT 14.9 Seconds (9.8-13.1) H 01/11/19 17:45 INR 1.3 01/11/19 17:45 APTT 34.7 Seconds (25.6-37.1) 01/11/19 17:45 - Constitutional Appears: Non-toxic, No Acute Distress - Eye Exam Eye Exam: Normal appearance - ENT Exam ENT Exam: Mucous Membranes Moist - Respiratory Exam Respiratory Exam: Clear to Ausculation Bilateral, NORMAL BREATHING PATTERN. absent: Accessory Muscle Use, Chest Wall Tenderness, Decreased Breath Sounds, Prolonged Expiratory Phase, Rales, Rhonchi, Wheezes, Respiratory Distress, Stridor - Cardiovascular Exam Cardiovascular Exam: +S1, +S2 - GI/Abdominal Exam GI & Abdominal Exam: Soft, Tenderness (RUQ tenderness. Ramos's sign positive. ) , Normal Bowel Sounds, Rebound (RUQ rebound. ). absent: Distended, Firm, Guarding, Rigid - Extremities Exam Extremities Exam: Full ROM, Normal Capillary Refill, Normal Inspection. absent: Calf Tenderness, Pedal Edema, Tenderness - Neurological Exam Neurological Exam: Alert, Awake, Oriented x3 - Psychiatric Exam Psychiatric exam: Normal Affect, Normal Mood - Skin Skin Exam: Dry, Intact, Normal Color, Warm Assessment and Plan - Assessment and Plan (Free Text) Assessment: 83 year old male with PMH of HTN admitted with abdominal pain, r/o Acute cholecystitis Plan: Abdominal pain, Acute cholecystitis? - Afebrile - leukocytosis (trending down from 27 to 21.7), lactate 3.5> 1.8 - ABD/pelvis CT: cholelithiasis, Gallbladder wall thickening and isak- cholecystic haziness thought compatible with acute cholecystitis. Diverticulosis coli without evidence of acute diverticulitis in the sigmoid and rectosigmoid regions. 1.7 cm non-obstructing calculus in the lower right renal pole. - General surgery recommendations appreciated: IVF bolus given this morning and maintaince fluids maintained; Continue ABX; F/U HIDA scan - NPO - IVF - Pain management - Vanco (day 2) and zosyn (day 1) per surgery team - zofran IV prn - pending HIDA scan - F/U am labs CKD stage 4 - BUN/Cr: 46/2.2 - GFR: 29 - gentle hydration - f/u labs in am HTN - controlled - asymptomatic - no home meds DVT ppx - scd for now <Mary Hutchins - Last Filed: 01/14/19 12:45> Objective - Vital Signs/Intake and Output Vital Signs (last 24 hours): Temp Pulse Resp BP Pulse Ox 97.5 F L 72 20 186/81 H 95 01/14/19 11:53 01/14/19 11:53 01/14/19 11:53 01/14/19 11:53 01/14/19 11:53 - Medications Medications: Current Medications Acetaminophen (Tylenol 325 Mg Supp) 325 mg NV Q4 PRN PRN Reason: Pain, Mild (1-3) Amlodipine Besylate (Norvasc) 5 mg PO DAILY NANETTE Last Admin: 01/14/19 09:22 Dose: 5 mg Vancomycin HCl 1 gm/ Sodium (Chloride) 250 mls @ 250 mls/hr IVPB STAT NANETTE; Protocol Last Admin: 01/11/19 22:13 Dose: 250 mls/hr Piperacillin Sod/Tazobactam (Sod 2.25 gm/ Sodium Chloride) 100 mls @ 100 mls/hr IVPB Q6 NANETTE; Protocol Last Admin: 01/14/19 09:23 Dose: 100 mls/hr Lactated Ringer's (Lactated Ringer's) 1,000 mls @ 120 mls/hr IV .Q8H20M NANETTE Last Admin: 01/13/19 23:30 Dose: 120 mls/hr Morphine Sulfate (Morphine) 2 mg IVP Q4 PRN PRN Reason: Pain, severe (8-10) Ondansetron HCl (Zofran Inj) 4 mg IVP Q4 PRN PRN Reason: Nausea/Vomiting - Labs Labs: 01/14/19 04:25 01/14/19 04:25 PT 13.5 Seconds (9.8-13.1) H 01/14/19 04:25 INR 1.2 01/14/19 04:25 APTT 32.3 Seconds (25.6-37.1) 01/14/19 04:25 Attending/Attestation - Attestation I have personally seen and examined this patient.: Yes I have fully participated in the care of the patient.: Yes I have reviewed all pertinent clinical information, including history, physical exam and plan: Yes Notes (Text): agree with findings and plan as above pt for HIDA, cholecystostomy
--- NOTE | 2019-01-12 12:18 | CT ---
Date of service: 01/11/2019 PROCEDURE: CT Abdomen and Pelvis with Oral contrast. HISTORY: abd pain COMPARISON: None. TECHNIQUE: Contiguous axial images of the abdomen and pelvis. Oral contrast was administered. No IV contrast given. Coronal and Sagittal reformats generated. Radiation dose: Total exam DLP = 587.31 mGy-cm. This CT exam was performed using one or more of the following dose reduction techniques: Automated exposure control, adjustment of the mA and/or kV according to patient size, and/or use of iterative reconstruction technique. FINDINGS: LOWER THORAX: Evaluation of the lung bases reveals mild chronic interstitial change or dependent atelectasis posteriorly at the lung bases. No pleural effusion is seen. Heart is enlarged with mild pericardial fluid noted. Distal esophagus is unremarkable. Visualized stomach shows some possible mild wall thickening in the gastric cardia region although this may be related to the under distention. Duodenum is within normal limits. LIVER: Mild perihepatic fluid is noted overlying the right lobe of the liver. No focal liver mass or intrahepatic ductal dilatation is seen. GALLBLADDER AND BILE DUCTS: Gallbladder is distended with some mild gallbladder wall thickening and pericholecystic infiltration of the fat. Mild cholecystitis is not excluded. A few small layering gallstones are noted. PANCREAS: Unremarkable. No mass. No ductal dilatation. SPLEEN: Unremarkable. No splenomegaly. ADRENALS: Unremarkable. KIDNEYS AND URETERS: There is evidence of a lower pole left renal cyst. 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 No perinephric changes or hydronephrosis is seen. BLADDER: Grossly unremarkable. REPRODUCTIVE: Prostate gland is not seen, more than likely related to prior surgery. APPENDIX: Unremarkable. BOWEL: There is some hypertrophic diverticular changes of the sigmoid colon. Noted in the right lateral aspect of the mid sigmoid colon is some mild colonic wall thickening and some subtle adjacent low-density or pericolonic inflammatory change. This is seen on series 3, images 122 through 130 and also seen on coronal images 40 through 47. Mild amount of diverticulitis cannot be excluded. This was not mentioned on the preliminary report. Remainder of the bowel shows no evidence of colonic wall thickening or pericolonic change. No small bowel dilatation or small bowel obstruction is noted. PERITONEUM: No appreciable retroperitoneal adenopathy. No pelvic or inguinal adenopathy seen. No free intraperitoneal air. LYMPH NODES: Unremarkable. No enlarged lymph nodes. VASCULATURE: Unremarkable. No aortic aneurysm. Mild aortic atherosclerotic calcification or mural plaque present. BONES: Degenerative changes are seen in the spine without compression fracture. OTHER FINDINGS: None. IMPRESSION: There are few findings appreciated. There is the suggestion of a few small layering gallstones and mild gallbladder wall thickening and infiltration of the pericholecystic fat which may suggest acute cholecystitis in the correct clinical setting. There is a mild amount of nonspecific perihepatic fluid noted which may be related to the inflammatory changes of the gallbladder. Not mentioned on the preliminary report is some mild possible colonic wall thickening along the right lateral aspect of the mid sigmoid colon with some adjacent low-density fluid. Mild amount of additional diverticulitis is not excluded. This will be placed into the PA review folder.
[2019-01-12 13:17] LABS: URINE AMORPHOUS SEDIMENT RARE /ul (<OCC); URINE BILIRUBIN NEGATIVE (NEGATIVE); URINE BLOOD MODERATE (NEGATIVE); URINE CLARITY CLOUDY (Clear); URINE COLOR YELLOW (YELLOW); URINE GLUCOSE (UA) NEG (NEGATIVE); URINE LEUKOCYTE ESTERASE NEG Leu/uL (Negative); URINE PROTEIN 30 mg/dL (NEGATIVE); URINE UROBILINOGEN 0.2-1.0 mg/dL (0.2-1.0)
[2019-01-13 06:33] LABS: HEMOGLOBIN 12.2 g/dL (12.0-18.0); MEAN CORPUSCULAR HGB CONC 33.4 g/dL (33.0-37.0); RBC 4.08 Mil/uL (4.40-5.90); RED CELL DISTRIBUTION WIDTH 14.5 % (11.5-14.5); WHITE BLOOD COUNT 15.6 K/uL (4.8-10.8)
[2019-01-13 06:51] LABS: ALBUMIN 3.4 g/dL (3.5-5.0); CALCIUM 8.5 mg/dL (8.4-10.2)
--- NOTE | 2019-01-13 07:24 | CP.PCM.PN ---
<Martha Russell - Last Filed: 01/13/19 13:04> Subjective - Date & Time of Evaluation Date of Evaluation: 01/13/19 Time of Evaluation: 08:00 - Subjective Subjective: 83 yo male with hx of HTN presented with abdominal pain, admitted to r/o cholecystitis. Patient seen and examined at bedside. Reports still has RUQ pain unchanged from admission, worse with walking, pt went down for RUQ U/S. Denies fever, chills, chest pain, SOB, N/V/D/C or dysuria. Objective - Vital Signs/Intake and Output Vital Signs (last 24 hours): Temp Pulse Resp BP Pulse Ox 97.7 F 85 18 151/85 H 95 01/13/19 04:25 01/13/19 04:25 01/13/19 04:25 01/13/19 04:25 01/13/19 04:25 - Medications Medications: Current Medications Acetaminophen (Tylenol 325 Mg Supp) 325 mg [place] Q4 PRN PRN Reason: Pain, Mild (1-3) Vancomycin HCl 1 gm/ Sodium (Chloride) 250 mls @ 250 mls/hr IVPB STAT NANETTE; Protocol Last Admin: 01/11/19 22:13 Dose: 250 mls/hr Piperacillin Sod/Tazobactam (Sod 2.25 gm/ Sodium Chloride) 100 mls @ 100 mls/hr IVPB Q6 NANETTE; Protocol Last Admin: 01/13/19 05:13 Dose: 100 mls/hr Ketorolac Tromethamine (Toradol) 15 mg IVP Q6 PRN PRN Reason: Pain, moderate (4-7) Morphine Sulfate (Morphine) 2 mg IVP Q4 PRN PRN Reason: Pain, severe (8-10) Ondansetron HCl (Zofran Inj) 4 mg IVP Q4 PRN PRN Reason: Nausea/Vomiting - Labs Labs: 01/13/19 04:30 01/13/19 04:30 PT 14.9 Seconds (9.8-13.1) H 01/11/19 17:45 INR 1.3 01/11/19 17:45 APTT 34.7 Seconds (25.6-37.1) 01/11/19 17:45 - Constitutional Appears: Non-toxic, No Acute Distress - Head Exam Head Exam: NORMAL INSPECTION - Eye Exam Eye Exam: EOMI - ENT Exam ENT Exam: Mucous Membranes Moist - Respiratory Exam Respiratory Exam: Clear to Ausculation Bilateral. absent: Rales, Rhonchi, Wheezes - Cardiovascular Exam Cardiovascular Exam: RRR, +S1, +S2 - GI/Abdominal Exam GI & Abdominal Exam: Soft, Tenderness (RUQ, + Eek sign), Normal Bowel Sounds. absent: Guarding, Rigid, Rebound - Extremities Exam Extremities Exam: Normal Inspection. absent: Pedal Edema - Neurological Exam Neurological Exam: Alert, Awake Assessment and Plan - Assessment and Plan (Free Text) Assessment: 83 year old male with PMH of HTN admitted with abdominal pain admitted with cholelithiasis r/o cholecystitis Plan: Cholelithiasis r/o cholecystitis - acute - Afebrile, leukocytosis (trending down from 27 to 15.6), lactate 3.5> 1.8 - RUQ U/S: Echogenic sludge or minimally shadowing gallstones in GB without evidence of acute cholecystitis. Non obstructing R renal calculi. - ABD/pelvis CT: cholelithiasis, Gallbladder wall thickening and isak- cholecystic haziness thought compatible with acute cholecystitis. Diverticulosis coli without evidence of acute diverticulitis in the sigmoid and rectosigmoid regions. 1.7 cm non-obstructing calculus in the lower right renal pole. - General surgery- Dr. Romo- [facility] appreciated- Pain management, liquid diet, fluids, zofran - Cardiology- Cleared for surgery - IR for placement of cholecystostomy tube - C/w Zosyn 2.25gm Q6hr (Day #2) s/p Vanco (1 dose) - blood cx no growth @ 2 days, urine cx negative - F/U CBC, CMP, and HIDA scan CKD stage 3 acute on chronic - BUN/Cr: 37/1.9 - GFR: 34 - gentle hydration - f/u CMP HTN - chronic, uncontrolled - BNP 4620, trop neg - no home meds - Added Norvasc 5mg - continue to monitor Diet Liquid diet DVT ppx - lovenox 30mg SC once (01/13/19)- hold for cholecystostomy in AM - SCD <Jacki Mayo - Last Filed: 01/13/19 14:58> Objective - Vital Signs/Intake and Output Vital Signs (last 24 hours): Temp Pulse Resp BP Pulse Ox 97.4 F L 67 20 156/75 H 98 01/13/19 12:55 01/13/19 12:55 01/13/19 12:55 01/13/19 12:55 01/13/19 12:55 - Medications Medications: Current Medications Acetaminophen (Tylenol 325 Mg Supp) 325 mg [place] Q4 PRN PRN Reason: Pain, Mild (1-3) Amlodipine Besylate (Norvasc) 5 mg PO DAILY NANETTE Last Admin: 01/13/19 11:56 Dose: 5 mg Vancomycin HCl 1 gm/ Sodium (Chloride) 250 mls @ 250 mls/hr IVPB STAT NANETTE; Protocol Last Admin: 01/11/19 22:13 Dose: 250 mls/hr Piperacillin Sod/Tazobactam (Sod 2.25 gm/ Sodium Chloride) 100 mls @ 100 mls/hr IVPB Q6 NANETTE; Protocol Last Admin: 01/13/19 10:34 Dose: 100 mls/hr Potassium Chloride (Potassium Chloride 20 Meq/100 Ml) 100 mls @ 50 mls/hr IVPB Q2 NANETTE Stop: 01/13/19 15:59 Last Admin: 01/13/19 13:24 Dose: 50 mls/hr Ketorolac Tromethamine (Toradol) 15 mg IVP Q6 PRN PRN Reason: Pain, moderate (4-7) Morphine Sulfate (Morphine) 2 mg IVP Q4 PRN PRN Reason: Pain, severe (8-10) Ondansetron HCl (Zofran Inj) 4 mg IVP Q4 PRN PRN Reason: Nausea/Vomiting - Labs Labs: 01/13/19 04:30 01/13/19 04:30 PT 14.9 Seconds (9.8-13.1) H 01/11/19 17:45 INR 1.3 01/11/19 17:45 APTT 34.7 Seconds (25.6-37.1) 01/11/19 17:45 Attending/Attestation - Attestation I have personally seen and examined this patient.: Yes I have fully participated in the care of the patient.: Yes I have reviewed all pertinent clinical information, including history, physical exam and plan: Yes Notes (Text): Sepsis ( POA) due to Acute Cholecystitis ZENOBIA on CKD Stage III HTN - Pt came in with RUQ Pain; - CT of abd :There are few findings appreciated. There is the suggestion of a few small layering gallstones and mild gallbladder wall thickening and infiltration of the pericholecystic fat which may suggest acute cholecystitis in the correct clinical setting. There is a mild amount of nonspecific perihepatic fluid noted which may be related to the inflammatory changes of the gallbladder. Not mentioned on the preliminary report is some mild possible colonic wall thic kening along the right lateral aspect of the mid sigmoid colon with some adjacent low-density fluid. Mild amount of additional diverticulitis is not excluded. - Surgery consulted- Rec Cholecystotostomy tube placement by IR - cont IV Zosyn -Lactic acid elecated to 3.5 on admission now normal. Leukocytosis from 27 now 15 - HIDA scan in am - IVF hydration -Cardio consulted for Cardiac eval prior to any surgery - start Norvasc 5 mg daily - Clear liquid diet , NPO from MN - DVT proph with Lovenox
[2019-01-13] MEDS ORDERED: Enoxaparin 30 mg Syringe SC ONE (09:00)
--- NOTE | 2019-01-13 09:43 | CP.PCM.CON ---
History of Present Illness - History of Present Illness History of Present Illness: 83 y/o w/m with Cholelithiasis pt continues to have RUQ abdominal pain Consult called for Pre-Op clearance Pt denies any Cardiac Hx EKG: NSR Labs: elevated white count BNP:7620 Troponin: neg PMH: HTN Prostate Surgery CKD stage 3 Past Patient History - Infectious Disease Hx of Infectious Diseases: None - Past Medical History & Family History Past Medical History?: Yes - Past Social History Smoking Status: Never Smoked - CARDIAC Hx Hypertension: Yes - PULMONARY Hx Respiratory Disorders: No - NEUROLOGICAL Hx Neurological Disorder: No - HEENT Hx HEENT Problems: No - RENAL Hx Chronic Kidney Disease: No - ENDOCRINE/METABOLIC Hx Endocrine Disorders: No - HEMATOLOGICAL/ONCOLOGICAL Hx Blood Disorders: No - INTEGUMENTARY Hx Dermatological Problems: No - MUSCULOSKELETAL/RHEUMATOLOGICAL Hx Musculoskeletal Disorders: No Hx Falls: No - GASTROINTESTINAL Hx Gastrointestinal Disorders: No - GENITOURINARY/GYNECOLOGICAL Hx Genitourinary Disorders: Yes Hx Prostate Problems: Yes - PSYCHIATRIC Hx Substance Use: No - SURGICAL HISTORY Hx Surgeries: Yes Other/Comment: PROSTATE? - ANESTHESIA Hx Anesthesia: Yes Hx Anesthesia Reactions: No Meds Allergies/Adverse Reactions: Allergies Allergy/AdvReac Type Severity Reaction Status Date / Time No Known Allergies Allergy Verified 06/14/18 11:47 - Medications Medications: Current Medications Acetaminophen (Tylenol 325 Mg Supp) 325 mg [place] Q4 PRN PRN Reason: Pain, Mild (1-3) Vancomycin HCl 1 gm/ Sodium (Chloride) 250 mls @ 250 mls/hr IVPB STAT [facility]; Protocol Last Admin: 01/11/19 22:13 Dose: 250 mls/hr Piperacillin Sod/Tazobactam (Sod 2.25 gm/ Sodium Chloride) 100 mls @ 100 mls/hr IVPB Q6 NANETTE; Protocol Last Admin: 01/13/19 05:13 Dose: 100 mls/hr Ketorolac Tromethamine (Toradol) 15 mg IVP Q6 PRN PRN Reason: Pain, moderate (4-7) Morphine Sulfate (Morphine) 2 mg IVP Q4 PRN PRN Reason: Pain, severe (8-10) Ondansetron HCl (Zofran Inj) 4 mg IVP Q4 PRN PRN Reason: Nausea/Vomiting Results - Vital Signs Recent Vital Signs: Last Vital Signs Temp 97.6 F 01/13/19 08:24 Pulse 70 01/13/19 08:24 Resp 20 01/13/19 08:24 BP 171/83 H 01/13/19 08:24 Pulse Ox 95 01/13/19 08:24 - Labs Result Diagrams: 01/13/19 04:30 01/13/19 04:30 Labs: Laboratory Results - last 24 hr 01/12/19 01/13/19 01/13/19 13:00 04:30 04:30 WBC 15.6 H RBC 4.08 L Hgb 12.2 Hct 36.7 MCV 90.0 MCH 30.0 MCHC 33.4 RDW 14.5 Plt Count 190 Sodium 140 Potassium 3.5 L Chloride 106 Carbon Dioxide 22 Anion Gap 16 BUN 37 H Creatinine 1.9 H Est GFR ( Amer) 41 Est GFR (Non-Af Amer) 34 Random Glucose 99 Calcium 8.5 Total Bilirubin 1.2 AST 39 ALT 61 Alkaline Phosphatase 107 Total Protein 6.6 Albumin 3.4 L Globulin 3.3 Albumin/Globulin Ratio 1.0 Urine Color Yellow Urine Clarity Cloudy Urine pH 5.0 Ur Specific A[place]or 1.020 Urine Protein 30 Urine Glucose (UA) Neg Urine Ketones Negative Urine Blood Moderate Urine Nitrate Negative Urine Bilirubin Negative Urine Urobilinogen 0.2-1.0 Ur Leukocyte Esterase Neg Urine RBC (Auto) 7 H Urine Microscopic WBC 5 Amorphous Sediment Rare H Assessment & Plan (1) Acute cholecystitis Assessment and Plan: The patient is cleared for surgery Status: Acute (2) HTN (hypertension) Status: Acute
--- NOTE | 2019-01-13 09:59 | CP.PCM.PN ---
<Melinda Barnes - Last Filed: 01/13/19 10:03> Subjective - Date & Time of Evaluation Date of Evaluation: 01/13/19 Time of Evaluation: 07:35 - Subjective Subjective: General Surgery: Demetrius patient seen and examined this am at bedside. No acute events overnight per nursing. endorses continued RUQ pain. denies f/c, n/v. no further complaints. Pt will go for RUQ US this am. Objective - Vital Signs/Intake and Output Vital Signs (last 24 hours): Temp Pulse Resp BP Pulse Ox 97.6 F 70 20 171/83 H 95 01/13/19 08:24 01/13/19 08:24 01/13/19 08:24 01/13/19 08:24 01/13/19 08:24 - Medications Medications: Current Medications Acetaminophen (Tylenol 325 Mg Supp) 325 mg [place] Q4 PRN PRN Reason: Pain, Mild (1-3) Vancomycin HCl 1 gm/ Sodium (Chloride) 250 mls @ 250 mls/hr IVPB STAT NANETTE; Protocol Last Admin: 01/11/19 22:13 Dose: 250 mls/hr Piperacillin Sod/Tazobactam (Sod 2.25 gm/ Sodium Chloride) 100 mls @ 100 mls/hr IVPB Q6 NANETTE; Protocol Last Admin: 01/13/19 05:13 Dose: 100 mls/hr Ketorolac Tromethamine (Toradol) 15 mg IVP Q6 PRN PRN Reason: Pain, moderate (4-7) Morphine Sulfate (Morphine) 2 mg IVP Q4 PRN PRN Reason: Pain, severe (8-10) Ondansetron HCl (Zofran Inj) 4 mg IVP Q4 PRN PRN Reason: Nausea/Vomiting - Labs Labs: 01/13/19 04:30 01/13/19 04:30 PT 14.9 Seconds (9.8-13.1) H 01/11/19 17:45 INR 1.3 01/11/19 17:45 APTT 34.7 Seconds (25.6-37.1) 01/11/19 17:45 - Constitutional Appears: Well, Non-toxic, No Acute Distress - Head Exam Head Exam: ATRAUMATIC, NORMOCEPHALIC - Eye Exam Eye Exam: EOMI - ENT Exam ENT Exam: Mucous Membranes Moist - Respiratory Exam Respiratory Exam: NORMAL BREATHING PATTERN - Cardiovascular Exam Cardiovascular Exam: REGULAR RHYTHM - GI/Abdominal Exam GI & Abdominal Exam: Soft, Tenderness (RUQ). absent: Guarding, Rebound Additional comments: scar noted from prior prostatectomy - Extremities Exam Extremities Exam: absent: Calf Tenderness, Pedal Edema - Neurological Exam Neurological Exam: Alert, Awake, Oriented x3 - Psychiatric Exam Psychiatric exam: Normal Affect, Normal Mood - Skin Skin Exam: Dry, Intact, Normal Color, Warm Assessment and Plan - Assessment and Plan (Free Text) Assessment: 83 yr old male with cholelithiasis possible cholecystitis Plan: - continue CLD - pain control - Continue Abx - f/u cardiology, recommendations appreciated - continue IVF - f/u RUQ ultrasound - IR for placement of cholecystostomy tube - HIDA ordered, f/u results - Repeat labs in am - Will follow - further recs per Dr. Demetrius Barnes, PGY 1 <Cesar Romo - Last Filed: 01/13/19 17:35> Subjective - Date & Time of Evaluation Time of Evaluation: 16:00 - Subjective Subjective: Patient was seen and examined at the bedside. Agree with resident's note above. Objective - Vital Signs/Intake and Output Vital Signs (last 24 hours): Temp Pulse Resp BP Pulse Ox 98.5 F 89 18 174/77 H 95 01/13/19 16:31 01/13/19 16:31 01/13/19 16:31 01/13/19 16:31 01/13/19 16:31 Intake and Output: 01/13/19 01/13/19 06:59 18:59 Intake Total 440 Balance 440 - Medications Medications: Current Medications Acetaminophen (Tylenol 325 Mg Supp) 325 mg [place] Q4 PRN PRN Reason: Pain, Mild (1-3) Amlodipine Besylate (Norvasc) 5 mg PO DAILY NANETTE Last Admin: 01/13/19 11:56 Dose: 5 mg Vancomycin HCl 1 gm/ Sodium (Chloride) 250 mls @ 250 mls/hr IVPB STAT NANETTE; Protocol Last Admin: 01/11/19 22:13 Dose: 250 mls/hr Piperacillin Sod/Tazobactam (Sod 2.25 gm/ Sodium Chloride) 100 mls @ 100 mls/hr IVPB Q6 NANETTE; Protocol Last Admin: 01/13/19 10:34 Dose: 100 mls/hr Morphine Sulfate (Morphine) 2 mg IVP Q4 PRN PRN Reason: Pain, severe (8-10) Ondansetron HCl (Zofran Inj) 4 mg IVP Q4 PRN PRN Reason: Nausea/Vomiting - Labs Labs: 01/13/19 04:30 01/13/19 04:30 PT 14.9 Seconds (9.8-13.1) H 01/11/19 17:45 INR 1.3 01/11/19 17:45 APTT 34.7 Seconds (25.6-37.1) 01/11/19 17:45 - GI/Abdominal Exam Additional comments: soft, improved tenderness in the RUQ, ND, BS+, no rebound, no guarding Assessment and Plan - Assessment and Plan (Free Text) Plan: - Clear liquid diet - pain control - IV fluid hydration - Will plan for cholecystectomy on 01/15/19 - repeat labs in am - Will follow
--- NOTE | 2019-01-13 11:45 | US ---
Date of service: 01/13/2019 HISTORY: abdominal pain COMPARISON: None. TECHNIQUE: Sonographic evaluation of the right upper quadrant of the abdomen. FINDINGS: LIVER: Measures 14.4 cm in length. Normal echogenicity of the liver parenchyma. No mass. No intrahepatic bile duct dilatation. Trace pericholecystic fluid is noted. This is nonspecific. GALLBLADDER: There is some mild nonspecific echogenic soft tissue within the gallbladder most consistent with gallbladder sludge and/or minimally shadowing gallstones. No gallbladder wall thickening or pericholecystic fluid is seen. No sonographic Ramos's sign was elicited. COMMON BILE DUCT: Measures 5 mm. No stones. No dilatation. PANCREAS: Head and body of the pancreas are normal in outline. The tail of the pancreas was obscured by bowel gas. RIGHT KIDNEY: Measures 10.3 cm in length. No hydronephrosis is seen. No perinephric changes are noted. There appears to be a echogenic 7 millimeter shadowing calculus in the lower pole the right kidney as well as a 10 millimeter shadowing calculus in the lower pole of the left kidney. AORTA: Aorta is normal in size. IVC: IVC is normal in size. Hepatic veins appear grossly patent. OTHER FINDINGS: None . IMPRESSION: Nonobstructing lower pole right renal calculi. Echogenic sludge or minimally shadowing gallstones in the gallbladder without ultrasound evidence of acute cholecystitis. Limited evaluation of the pancreas.
[2019-01-13] MEDS: Potassium Chloride 20 mEq 100 ML IVPB SCH ×2 (13:24→15:37)
[2019-01-13] MEDS ORDERED: Lactated Ringer's 1,000 ML IV SCH (21:00)
[2019-01-13] MEDS: Lactated Ringer's 1,000 ML IV SCH ×2 (23:21→23:30)
[2019-01-14 05:38] LABS: INR 1.2; PROTHROMBIN TIME 13.5 Seconds (9.8-13.1)
[2019-01-14 05:40] LABS: BASO % 0.1 % (0.0-2.0); EOS # 0.1 K/uL (0.0-0.7); EOS % 0.5 % (0.0-4.0); HEMOGLOBIN 11.3 g/dL (12.0-18.0); LYMPH # 0.8 K/uL (1.0-4.3); LYMPH % 7.1 % (20.0-40.0); MEAN CELL VOLUME 89.2 fl (80.0-94.0); MEAN CORPUSCULAR HEMOGLOBIN 30.3 pg (27.0-31.0); MEAN CORPUSCULAR HGB CONC 33.9 g/dL (33.0-37.0); MEAN PLATELET VOLUME 8.8 fl (7.2-11.7); MONO # 0.9 K/uL (0.0-0.8); MONO % 7.6 % (0.0-10.0); NEUT # 9.9 K/uL (1.8-7.0); NEUT % 84.7 % (50.0-75.0); NRBC % 0.1 % (0.0-0.0); RBC 3.73 Mil/uL (4.40-5.90); RED CELL DISTRIBUTION WIDTH 14.3 % (11.5-14.5); WHITE BLOOD COUNT 11.7 K/uL (4.8-10.8)
[2019-01-14 05:41] LABS: PARTIAL THROMBOPLASTIN TIME 32.3 Seconds (25.6-37.1)
[2019-01-14 06:10] LABS: ALB/GLOB RATIO 0.9 (1.0-2.1); CALCIUM 8.4 mg/dL (8.4-10.2)
--- NOTE | 2019-01-14 07:34 | CP.PCM.PN ---
<Ian Bartlett - Last Filed: 01/14/19 07:36> Subjective - Date & Time of Evaluation Date of Evaluation: 01/14/19 Time of Evaluation: 07:32 - Subjective Subjective: Surgery Progress note Patient seen and examined. Continued RUQ abdominal pain, however moderately improved. tolerating CLD. Denies f/c/cp/sob. + OOB Objective - Vital Signs/Intake and Output Vital Signs (last 24 hours): Temp Pulse Resp BP Pulse Ox 98.7 F 66 18 160/78 H 98 01/14/19 04:45 01/14/19 04:45 01/14/19 04:45 01/14/19 04:45 01/14/19 04:45 - Medications Medications: Current Medications Acetaminophen (Tylenol 325 Mg Supp) 325 mg [place] Q4 PRN PRN Reason: Pain, Mild (1-3) Amlodipine Besylate (Norvasc) 5 mg PO DAILY NANETTE Last Admin: 01/13/19 11:56 Dose: 5 mg Vancomycin HCl 1 gm/ Sodium (Chloride) 250 mls @ 250 mls/hr IVPB STAT [facility]; Protocol Last Admin: 01/11/19 22:13 Dose: 250 mls/hr Piperacillin Sod/Tazobactam (Sod 2.25 gm/ Sodium Chloride) 100 mls @ 100 mls/hr IVPB Q6 NANETTE; Protocol Last Admin: 01/14/19 03:17 Dose: 100 mls/hr Lactated Ringer's (Lactated Ringer's) 1,000 mls @ 120 mls/hr IV .Q8H20M NANETTE Last Admin: 01/13/19 23:30 Dose: 120 mls/hr Potassium Chloride (Potassium Cl 10meq/50ml Sterile Water) 50 mls @ 50 mls/hr IVPB Q1 NANETTE Stop: 01/14/19 10:59 Morphine Sulfate (Morphine) 2 mg IVP Q4 PRN PRN Reason: Pain, severe (8-10) Ondansetron HCl (Zofran Inj) 4 mg IVP Q4 PRN PRN Reason: Nausea/Vomiting - Labs Labs: 01/14/19 04:25 01/14/19 04:25 PT 13.5 Seconds (9.8-13.1) H 01/14/19 04:25 INR 1.2 01/14/19 04:25 APTT 32.3 Seconds (25.6-37.1) 01/14/19 04:25 - Constitutional Appears: Non-toxic, No Acute Distress - Head Exam Head Exam: ATRAUMATIC - Eye Exam Eye Exam: EOMI. absent: Scleral icterus - ENT Exam ENT Exam: Mucous Membranes Moist - Respiratory Exam Respiratory Exam: NORMAL BREATHING PATTERN. absent: Accessory Muscle Use, Respiratory Distress - Cardiovascular Exam Cardiovascular Exam: REGULAR RHYTHM. absent: Bradycardia, Tachycardia - GI/Abdominal Exam GI & Abdominal Exam: Soft, Tenderness (tenderness mid-epigastrum and RUQ). absent: Distended, Firm, Guarding, Rigid - Neurological Exam Neurological Exam: Alert, Awake, Oriented x3 - Psychiatric Exam Psychiatric exam: Normal Affect - Skin Skin Exam: Intact, Warm Assessment and Plan - Assessment and Plan (Free Text) Assessment: 83M w/ symptomatic Cholelithiasis Plan: - HIDA scan this AM - NPO after MN - IVF/Abx - Plan for Cholecystectomy 01/15/19 - f/u AM labs - further recs per surgical attending PGY2 <Zach Hinton - Last Filed: 01/14/19 08:56> Objective - Vital Signs/Intake and Output Vital Signs (last 24 hours): Temp Pulse Resp BP Pulse Ox 99.5 F 61 20 174/82 H 95 01/14/19 08:10 01/14/19 08:10 01/14/19 08:10 01/14/19 08:10 01/14/19 08:10 - Medications Medications: Current Medications Acetaminophen (Tylenol 325 Mg Supp) 325 mg [place] Q4 PRN PRN Reason: Pain, Mild (1-3) Amlodipine Besylate (Norvasc) 5 mg PO DAILY NANETTE Last Admin: 01/13/19 11:56 Dose: 5 mg Vancomycin HCl 1 gm/ Sodium (Chloride) 250 mls @ 250 mls/hr IVPB STAT [facility]AN[facility]TE; Protocol Last Admin: 01/11/19 22:13 Dose: 250 mls/hr Piperacillin Sod/Tazobactam (Sod 2.25 gm/ Sodium Chloride) 100 mls @ 100 mls/hr IVPB Q6 NANETTE; Protocol Last Admin: 01/14/19 03:17 Dose: 100 mls/hr Lactated Ringer's (Lactated Ringer's) 1,000 mls @ 120 mls/hr IV .Q8H20M [facility] Last Admin: 01/13/19 23:30 Dose: 120 mls/hr Potassium Chloride (Potassium Cl 10meq/50ml Sterile Water) 50 mls @ 50 mls/hr IVPB Q1 [facility] Stop: 01/14/19 10:59 Morphine Sulfate (Morphine) 2 mg IVP Q4 PRN PRN Reason: Pain, severe (8-10) Ondansetron HCl (Zofran Inj) 4 mg IVP Q4 PRN PRN Reason: Nausea/Vomiting - Labs Labs: 01/14/19 04:25 01/14/19 04:25 PT 13.5 Seconds (9.8-13.1) H 01/14/19 04:25 INR 1.2 01/14/19 04:25 APTT 32.3 Seconds (25.6-37.1) 01/14/19 04:25 Assessment and Plan - Assessment and Plan (Free Text) Plan: seen at bedside, resting comfortably. Pt reports RUQ pain worse with movement. Denies any nausea or vomiting. gen: awake, alert, NAD Heent: NC/AT, EOMI, -scleral icterus abd: soft, distended, +murphys -NPO after midnight -cont IVF -abx -to OR 01/15 for laparoscopic cholecystectomy possible open
[2019-01-14] MEDS ORDERED: Potassium Chloride 20 mEq 100 ML IVPB SCH (08:00)
--- NOTE | 2019-01-14 08:17 | CP.PCM.PN ---
<Rochelle Larkin - Last Filed: 01/14/19 10:04> Subjective - Date & Time of Evaluation Date of Evaluation: 01/14/19 Time of Evaluation: 08:40 - Subjective Subjective: Patient seen and examined at bedside. Reports feeling well with 4/10 RUQ pain today. No overnight events on the tele monitor. Hemodynamically stable. Afebrile . Denies angina, dypsnea, nausea, vomiting, diarrhea. Objective - Vital Signs/Intake and Output Vital Signs (last 24 hours): Temp Pulse Resp BP Pulse Ox 99.5 F 61 20 174/82 H 95 01/14/19 08:10 01/14/19 08:10 01/14/19 08:10 01/14/19 08:10 01/14/19 08:10 - Medications Medications: Current Medications Acetaminophen (Tylenol 325 Mg Supp) 325 mg PA Q4 PRN PRN Reason: Pain, Mild (1-3) Amlodipine Besylate (Norvasc) 5 mg PO DAILY [facility] Last Admin: 01/13/19 11:56 Dose: 5 mg Vancomycin HCl 1 gm/ Sodium (Chloride) 250 mls @ 250 mls/hr IVPB STAT NANETTE; Protocol Last Admin: 01/11/19 22:13 Dose: 250 mls/hr Piperacillin Sod/Tazobactam (Sod 2.25 gm/ Sodium Chloride) 100 mls @ 100 mls/hr IVPB Q6 NANETTE; Protocol Last Admin: 01/14/19 03:17 Dose: 100 mls/hr Lactated Ringer's (Lactated Ringer's) 1,000 mls @ 120 mls/hr IV .Q8H20M NANETTE Last Admin: 01/13/19 23:30 Dose: 120 mls/hr Potassium Chloride (Potassium Cl 10meq/50ml Sterile Water) 50 mls @ 50 mls/hr IVPB Q1 NANETTE Stop: 01/14/19 10:59 Morphine Sulfate (Morphine) 2 mg IVP Q4 PRN PRN Reason: Pain, severe (8-10) Ondansetron HCl (Zofran Inj) 4 mg IVP Q4 PRN PRN Reason: Nausea/Vomiting - Labs Labs: 01/14/19 04:25 01/14/19 04:25 PT 13.5 Seconds (9.8-13.1) H 01/14/19 04:25 INR 1.2 01/14/19 04:25 APTT 32.3 Seconds (25.6-37.1) 01/14/19 04:25 - Constitutional Appears: Non-toxic, No Acute Distress - Eye Exam Eye Exam: Normal appearance - ENT Exam ENT Exam: Mucous Membranes Moist - Respiratory Exam Respiratory Exam: Clear to Ausculation Bilateral, NORMAL BREATHING PATTERN. absent: Accessory Muscle Use, Chest Wall Tenderness, Decreased Breath Sounds, Prolonged Expiratory Phase, Rales, Rhonchi, Wheezes, Respiratory Distress, Stridor - Cardiovascular Exam Cardiovascular Exam: REGULAR RHYTHM, +S1, +S2 - GI/Abdominal Exam GI & Abdominal Exam: Soft, Tenderness (RUQ tenderness), Normal Bowel Sounds, Rebound (Salix' positive). absent: Distended, Firm, Guarding, Rigid - Extremities Exam Extremities Exam: Normal Capillary Refill, Normal Inspection. absent: Calf Tenderness, Pedal Edema, Tenderness - Back Exam Back Exam: NORMAL INSPECTION - Neurological Exam Neurological Exam: Alert, Awake, Oriented x3 - Psychiatric Exam Psychiatric exam: Normal Affect, Normal Mood - Skin Skin Exam: Dry, Intact, Normal Color, Warm Assessment and Plan - Assessment and Plan (Free Text) Assessment: 83 year old male with PMH of HTN admitted with abdominal pain admitted with cholelithiasis r/o cholecystitis. Patient to undergo Cholecystectomy 01/15/19. Plan: Cholelithiasis r/o cholecystitis - acute - Afebrile, leukocytosis (trending down from 27 to 11.7), lactate 3.5> 1.8 - RUQ U/S: Echogenic sludge or minimally shadowing gallstones in GB without evidence of acute cholecystitis. Non obstructing R renal calculi. - ABD/pelvis CT: cholelithiasis, Gallbladder wall thickening and isak- cholecystic haziness thought compatible with acute cholecystitis. Diverticulosis coli without evidence of acute diverticulitis in the sigmoid and rectosigmoid regions. 1.7 cm non-obstructing calculus in the lower right renal pole. - General surgery- Dr. Romo- [facility] appreciated- Pain management, liquid diet, fluids, zofran - Cardiology- Cleared for surgery - C/w Zosyn 2.25gm Q6hr (Day #3) s/p Vanco (1 dose) - blood cx no growth @ 2 days, urine cx negative - HIDA scan today - Cholescystectomy tomorrow, 01/15/19 CKD stage 3 acute on chronic - BUN/Cr: 27/1.8 - GFR: 44 - gentle hydration - f/u CMP HTN - chronic, uncontrolled - BNP 4620, trop neg - no home meds - c/w Norvasc 5mg - continue to monitor Diet Liquid diet DVT ppx - lovenox 30mg SC once today, hold tomorrow for cholecystostomy in AM - Creatinine clearance: 10mL/min - SCD <CuongMary Karen - Last Filed: 01/14/19 12:18> Objective - Vital Signs/Intake and Output Vital Signs (last 24 hours): Temp Pulse Resp BP Pulse Ox 97.5 F L 72 20 186/81 H 95 01/14/19 11:53 01/14/19 11:53 01/14/19 11:53 01/14/19 11:53 01/14/19 11:53 - Medications Medications: Current Medications Acetaminophen (Tylenol 325 Mg Supp) 325 mg PA Q4 PRN PRN Reason: Pain, Mild (1-3) Amlodipine Besylate (Norvasc) 5 mg PO DAILY [facility] Last Admin: 01/14/19 09:22 Dose: 5 mg Vancomycin HCl 1 gm/ Sodium (Chloride) 250 mls @ 250 mls/hr IVPB STAT NANETET; Protocol Last Admin: 01/11/19 22:13 Dose: 250 mls/hr Piperacillin Sod/Tazobactam (Sod 2.25 gm/ Sodium Chloride) 100 mls @ 100 mls/hr IVPB Q6 NANETTE; Protocol Last Admin: 01/14/19 09:23 Dose: 100 mls/hr Lactated Ringer's (Lactated Ringer's) 1,000 mls @ 120 mls/hr IV .Q8H20M NANETTE Last Admin: 01/13/19 23:30 Dose: 120 mls/hr Morphine Sulfate (Morphine) 2 mg IVP Q4 PRN PRN Reason: Pain, severe (8-10) Ondansetron HCl (Zofran Inj) 4 mg IVP Q4 PRN PRN Reason: Nausea/Vomiting - Labs Labs: 01/14/19 04:25 01/14/19 04:25 PT 13.5 Seconds (9.8-13.1) H 01/14/19 04:25 INR 1.2 01/14/19 04:25 APTT 32.3 Seconds (25.6-37.1) 01/14/19 04:25 Attending/Attestation - Attestation I have personally seen and examined this patient.: Yes I have fully participated in the care of the patient.: Yes I have reviewed all pertinent clinical information, including history, physical exam and plan: Yes Notes (Text): 01/14/19 12:16 agree with findings and plan as above. moderate pain, on zosyn. for OR tomorrow for cholecystectomy
[2019-01-14] MEDS ORDERED: Enoxaparin 30 mg Syringe SC ONE (10:15)
--- NOTE | 2019-01-14 13:08 | CP.PCM.CON ---
History of Present Illness - History of Present Illness History of Present Illness: Psychiatry consult called to evaluate dementia HPI: 83 yo male w/ h/o HTN, presented w/ abdominal pain and cholelithiasis. Patient interviewed with present. Patient is a limited historian. He knows he is in the hospital for abdominal pain and that he needs antibiotic medication. He is agreeable to medical treatment at his time and his is also in agreement. He denies acute depression/anxiety/AH/VH/SI/HI. PPHx: No past psychiatric treatment PMHx: Prostate surgery, HTN ALL: NKDA SHx: No drugs/etoh/cig use; from [place]; lives w/ ; 2 adult children Impression: 83 yo male likely has Major Neurocognitive Disorder. -Consider neurology consult or outpatient neurology follow-up -Consider psychology consult for neuropsych testing to determine level of cognitive function -No acute psychiatric medications indicated at this time; no psychiatric admission indicted at this time Past Patient History - Infectious Disease Hx of Infectious Diseases: None - Past Medical History & Family History Past Medical History?: Yes - Past Social History Smoking Status: Never Smoked - CARDIAC Hx Hypertension: Yes - PULMONARY Hx Respiratory Disorders: No - NEUROLOGICAL Hx Neurological Disorder: No - HEENT Hx HEENT Problems: No - RENAL Hx Chronic Kidney Disease: No - ENDOCRINE/METABOLIC Hx Endocrine Disorders: No - HEMATOLOGICAL/ONCOLOGICAL Hx Blood Disorders: No - INTEGUMENTARY Hx Dermatological Problems: No - MUSCULOSKELETAL/RHEUMATOLOGICAL Hx Musculoskeletal Disorders: No Hx Falls: No - GASTROINTESTINAL Hx Gastrointestinal Disorders: No - GENITOURINARY/GYNECOLOGICAL Hx Genitourinary Disorders: Yes Hx Prostate Problems: Yes - PSYCHIATRIC Hx Substance Use: No - SURGICAL HISTORY Hx Surgeries: Yes Other/Comment: PROSTATE? - ANESTHESIA Hx Anesthesia: Yes Hx Anesthesia Reactions: No Meds Allergies/Adverse Reactions: Allergies Allergy/AdvReac Type Severity Reaction Status Date / Time No Known Allergies Allergy Verified 06/14/18 11:47 - Medications Medications: Current Medications Acetaminophen (Tylenol 325 Mg Supp) 325 mg [place] Q4 PRN PRN Reason: Pain, Mild (1-3) Amlodipine Besylate (Norvasc) 5 mg PO DAILY [facility] Last Admin: 01/14/19 09:22 Dose: 5 mg Vancomycin HCl 1 gm/ Sodium (Chloride) 250 mls @ 250 mls/hr IVPB STAT NANETTE; Pr otocol Last Admin: 01/11/19 22:13 Dose: 250 mls/hr Piperacillin Sod/Tazobactam (Sod 2.25 gm/ Sodium Chloride) 100 mls @ 100 mls/hr IVPB Q6 NANETTE; Protocol Last Admin: 01/14/19 09:23 Dose: 100 mls/hr Lactated Ringer's (Lactated Ringer's) 1,000 mls @ 120 mls/hr IV .Q8H20M NANETTE Last Admin: 01/13/19 23:30 Dose: 120 mls/hr Morphine Sulfate (Morphine) 2 mg IVP Q4 PRN PRN Reason: Pain, severe (8-10) Ondansetron HCl (Zofran Inj) 4 mg IVP Q4 PRN PRN Reason: Nausea/Vomiting Results - Vital Signs Recent Vital Signs: Last Vital Signs Temp 97.5 F L 01/14/19 11:53 Pulse 72 01/14/19 11:53 Resp 20 01/14/19 11:53 BP 186/81 H 01/14/19 11:53 Pulse Ox 95 01/14/19 11:53 - Labs Result Diagrams: 01/14/19 04:25 01/14/19 04:25 Labs: Laboratory Results - last 24 hr 01/12/19 01/14/19 01/14/19 04:25 04:25 04:25 WBC 11.7 H RBC 3.73 L Hgb 11.3 L Hct 33.3 L MCV 89.2 MCH 30.3 MCHC 33.9 RDW 14.3 Plt Count 200 MPV 8.8 Neut % (Auto) 84.7 H Lymph % (Auto) 7.1 L [place] % (Auto) 7.6 Eos % (Auto) 0.5 Baso % (Auto) 0.1 Neut # (Auto) 9.9 H Lymph # (Auto) 0.8 L [place] # (Auto) 0.9 H Eos # (Auto) 0.1 Baso # (Auto) 0.0 PT 13.5 H INR 1.2 APTT 32.3 Sodium 138 Potassium 4.0 Chloride 104 Carbon Dioxide 23 Anion Gap 15 BUN 46 H Creatinine 2.2 H Est GFR ( Amer) 35 Est GFR (Non-Af Amer) 29 Random Glucose 101 Calcium 8.6 Phosphorus 4.1 Magnesium 2.3 Total Bilirubin 1.1 AST 30 ALT 65 Alkaline Phosphatase 93 Total Protein 6.7 Albumin 3.6 Globulin 3.1 Albumin/Globulin Ratio 1.2 01/14/19 04:25 WBC RBC Hgb Hct MCV MCH MCHC RDW Plt Count MPV Neut % (Auto) Lymph % (Auto) [place] % (Auto) Eos % (Auto) Baso % (Auto) Neut # (Auto) Lymph # (Auto) [place] # (Auto) Eos # (Auto) Baso # (Auto) PT INR APTT Sodium 141 Potassium 3.5 L Chloride 109 H Carbon Dioxide 23 Anion Gap 13 BUN 27 H Creatinine 1.8 H Est GFR ( Amer) 44 Est GFR (Non-Af Amer) 36 Random Glucose 94 Calcium 8.4 Phosphorus Magnesium Total Bilirubin 1.1 AST 59 D ALT 69 Alkaline Phosphatase 109 Total Protein 6.3 Albumin 3.0 L Globulin 3.2 Albumin/Globulin Ratio 0.9 L
[2019-01-14] MEDS: Potassium CL 10 MEQ/50 ML 50 ML IVPB SCH ×3 (16:13→22:43)
[2019-01-14] MEDS: Lactated Ringer's 1,000 ML IV SCH ×2 (16:13→22:43)
[2019-01-15] MEDS: Lactated Ringer's 1,000 ML IV SCH (06:03)
[2019-01-15 06:04] LABS: HEMOGLOBIN 10.7 g/dL (12.0-18.0); MEAN CELL VOLUME 89.7 fl (80.0-94.0); MEAN CORPUSCULAR HGB CONC 33.5 g/dL (33.0-37.0); RBC 3.57 Mil/uL (4.40-5.90); RED CELL DISTRIBUTION WIDTH 14.3 % (11.5-14.5); WHITE BLOOD COUNT 9.5 K/uL (4.8-10.8)
[2019-01-15 06:07] LABS: CALCIUM 8.2 mg/dL (8.4-10.2)
--- NOTE | 2019-01-15 11:21 | CP.PCM.PN ---
<Rochelle Larkin - Last Filed: 01/15/19 11:19> Subjective - Date & Time of Evaluation Date of Evaluation: 01/15/19 Time of Evaluation: 08:40 - Subjective Subjective: Patient seen and examined at bedside. Afebrile, Hemodynamically stable. No acute overnight events. No events on the Telemonitor (currently sinus rhythm). Denies chest pain, shortness of breath, nausea, vomiting or diarrhea. Pt was kept NPO over midnight given surgery today. Objective - Vital Signs/Intake and Output Vital Signs (last 24 hours): Temp Pulse Resp BP Pulse Ox 97.9 F 56 L 20 166/69 H 98 01/15/19 07:54 01/15/19 10:55 01/15/19 07:54 01/15/19 10:55 01/15/19 07:54 - Medications Medications: Current Medications Acetaminophen (Tylenol 325 Mg Supp) 325 mg RI Q4 PRN PRN Reason: Pain, Mild (1-3) Amlodipine Besylate (Norvasc) 5 mg PO DAILY [facility] Last Admin: 01/15/19 10:55 Dose: Not Given Piperacillin Sod/Tazobactam (Sod 2.25 gm/ Sodium Chloride) 100 mls @ 100 mls/hr IVPB Q6 NANETTE; Protocol Last Admin: 01/15/19 03:53 Dose: 100 mls/hr Lactated Ringer's (Lactated Ringer's) 1,000 mls @ 120 mls/hr IV .Q8H20M [facility] Last Admin: 01/15/19 06:03 Dose: 120 mls/hr Morphine Sulfate (Morphine) 2 mg IVP Q4 PRN PRN Reason: Pain, severe (8-10) Ondansetron HCl (Zofran Inj) 4 mg IVP Q4 PRN PRN Reason: Nausea/Vomiting - Labs Labs: 01/15/19 05:05 01/15/19 05:05 PT 13.5 Seconds (9.8-13.1) H 01/14/19 04:25 INR 1.2 01/14/19 04:25 APTT 32.3 Seconds (25.6-37.1) 01/14/19 04:25 - Constitutional Appears: Non-toxic, No Acute Distress - Eye Exam Eye Exam: Normal appearance - ENT Exam ENT Exam: Mucous Membranes Moist - Respiratory Exam Respiratory Exam: Clear to Ausculation Bilateral, NORMAL BREATHING PATTERN. absent: Accessory Muscle Use, Chest Wall Tenderness, Decreased Breath Sounds, Prolonged Expiratory Phase, Rales, Rhonchi, Wheezes, Respiratory Distress, Stridor - Cardiovascular Exam Cardiovascular Exam: REGULAR RHYTHM, +S1, +S2 - GI/Abdominal Exam GI & Abdominal Exam: Soft, Tenderness (RUQ tenderness. Ramos's positive), Normal Bowel Sounds. absent: Distended, Firm, Guarding, Rigid - Extremities Exam Extremities Exam: Full ROM, Normal Capillary Refill, Normal Inspection. absent: Calf Tenderness, Joint Swelling, Pedal Edema, Tenderness - Neurological Exam Neurological Exam: Alert, Awake, Oriented x3 - Psychiatric Exam Psychiatric exam: Normal Affect, Normal Mood - Skin Skin Exam: Dry, Intact, Normal Color, Warm Assessment and Plan - Assessment and Plan (Free Text) Assessment: 83 year old male with PMH of HTN admitted with abdominal pain admitted with cholelithiasis r/o cholecystitis going to surgery today @ noon. Plan: Cholelithiasis r/o cholecystitis - acute - Afebrile, leukocytosis (trending down from 27 to 9.5), lactate 3.5> 1.8 - RUQ U/S: Echogenic sludge or minimally shadowing gallstones in GB without evidence of acute cholecystitis. Non obstructing R renal calculi. - ABD/pelvis CT: cholelithiasis, Gallbladder wall thickening and isak- cholecystic haziness thought compatible with acute cholecystitis. Diverticulosis coli without evidence of acute diverticulitis in the sigmoid and rectosigmoid regions. 1.7 cm non-obstructing calculus in the lower right renal pole. - General surgery- Dr. Romo- recs appreciated- Pain management, liquid diet, fluids, zofran - surgery today at noon - Cardiology- Cleared for surgery - C/w Zosyn 2.25gm Q6hr (Day #4) s/p Vanco (1 dose) - blood cx no growth @ 2 days, urine cx negative CKD stage 3 acute on chronic- improving - BUN/Cr: 23/1.7 - GFR: 47 - gentle hydration - f/u CMP Dementia - Psych consulted- appreciate recommendations: likely Neurocognitive disorder to consult neuro - Serrogate decision maker: (Antonia) and Daughter HTN - chronic, uncontrolled - BNP 4620, trop neg - no home meds - Added Norvasc 5mg - continue to monitor Diet NPO for surgery DVT ppx - lovenox 30mg SC once- held today for cholecystostomy - Will restart tomorrow - SCD <Jacki Mayo - Last Filed: 01/15/19 12:29> Objective - Vital Signs/Intake and Output Vital Signs (last 24 hours): Temp Pulse Resp BP Pulse Ox 98.0 F 56 L 20 154/71 H 98 01/15/19 11:48 01/15/19 11:48 01/15/19 11:48 01/15/19 11:48 01/15/19 11:48 - Medications Medications: Current Medications Acetaminophen (Tylenol 325 Mg Supp) 325 mg RI Q4 PRN PRN Reason: Pain, Mild (1-3) Amlodipine Besylate (Norvasc) 5 mg PO DAILY [facility] Last Admin: 01/15/19 10:55 Dose: Not Given Piperacillin Sod/Tazobactam (Sod 2.25 gm/ Sodium Chloride) 100 mls @ 100 mls/hr IVPB Q6 [facility]ANETTE; Protocol Last Admin: 01/15/19 11:46 Dose: 100 mls/hr Lactated Ringer's (Lactated Ringer's) 1,000 mls @ 120 mls/hr IV .Q8H20M [facility]TE Last Admin: 01/15/19 06:03 Dose: 120 mls/hr Morphine Sulfate (Morphine) 2 mg IVP Q4 PRN PRN Reason: Pain, severe (8-10) Ondansetron HCl (Zofran Inj) 4 mg IVP Q4 PRN PRN Reason: Nausea/Vomiting - Labs Labs: 01/15/19 05:05 01/15/19 05:05 PT 13.5 Seconds (9.8-13.1) H 01/14/19 04:25 INR 1.2 01/14/19 04:25 APTT 32.3 Seconds (25.6-37.1) 01/14/19 04:25 Attending/Attestation - Attestation I have personally seen and examined this patient.: Yes I have fully participated in the care of the patient.: Yes I have reviewed all pertinent clinical information, including history, physical exam and plan: Yes Notes (Text): Sepsis ( POA) due to Acute Cholecystitis ZENOBIA on CKD Stage III HTN - Surgery consulted- Plan for Lap Cholecystectomy today - keep pt NPO' - IVF hydration - cont IV Zosyn -Lactic acid eleated to 3.5 on admission now normal. Leukocytosis from 27k now normal at 9k -Cardio consulted for Cardiac eval prior to any surgery- Dr Silva deemed pt stable for proposed surgery - Creatinine better ( 1.7 from 2.2) - cont Norvasc 5 mg daily - DVT proph with Lovenox - hold today
[2019-01-15] MEDS ORDERED: Bupivacaine 0.5% Inj(30mL) ONE (12:59)
[2019-01-15] MEDS ORDERED: Rocuronium 10 mg/ml (5 ml) ONE (13:06)
[2019-01-15] MEDS ORDERED: Midazolam 2 MG/2 ML VIAL ONE (13:06)
[2019-01-15] MEDS ORDERED: Lidocaine 4% (Laryng-O-Jet) Kit MM ONE (13:07)
[2019-01-15] MEDS ORDERED: Succinylcholine Chloride 20 mg/ml Syr (5 ml) IV ONE (13:07)
[2019-01-15] MEDS ORDERED: Etomidate 20 mg/10ml Inj IV ONE (13:07)
[2019-01-15] MEDS ORDERED: Lactated Ringer's 1,000 ML IV ONE (13:52)
[2019-01-15] MEDS ORDERED: Bupivacaine 0.5% 50 ML IJ ONE (14:25)
[2019-01-15] MEDS ORDERED: Labetalol 5mg/ml (4ml) ONE (14:26)
[2019-01-15] MEDS ORDERED: Neostigmine 1:1000 (1 mg/ml) Inj ONE (16:01)
[2019-01-15] MEDS ORDERED: HYDROmorphone 0.5 mg/0.5 ml ISec IVP PRN (16:45)
[2019-01-15] MEDS ORDERED: Lactated Ringer's 1,000 ML IV SCH (16:48)
[2019-01-15] MEDS ORDERED: Morphine 4 MG/ML VIAL IVP PRN (17:20)
--- NOTE | 2019-01-15 17:33 | PCM.SURG1 ---
Surgeon's Initial Post Op Note - Surgeon's Notes Surgeon: Dr. Romo Wan Support Specialist: Dr. Barnes, PGY 1 Type of Anesthesia: General Endo Pre-Operative Diagnosis: acute cholecystitis Operative Findings: gangrenous cholecystitis, see operative report for further detail Post-Operative Diagnosis: gangrenous cholecystitis Operation Performed: laparoscopic cholecystectomy Specimen/Specimens Removed: gallbladder Estimated Blood Loss: EBL {In ML}: 50 Blood Products Given: N/A Drains Used: Vish (right side) Date of Surgery/Procedure: 01/15/19 Time of Surgery/Procedure: 13:30
[2019-01-16] MEDS ORDERED: Chlorhexidine Gluconate 1 APPL/PKT TP ONE (00:37)
--- NOTE | 2019-01-16 00:46 | OP ---
PROCEDURE DATE: 01/15/2019 PREOPERATIVE DIAGNOSIS: Acute cholecystitis. POSTOPERATIVE DIAGNOSIS: Gangrenous cholecystitis. PROCEDURE: Laparoscopic cholecystectomy. SURGEON: Cesar Romo MD BOOSTER PLANT OPERATOR: Zach Hinton MD SECOND BOOSTER PLANT OPERATOR: Melinda Barnes, surgical dental assistant. TYPE OF ANESTHESIA: General endotracheal intubation. ANESTHESIA ADMINISTERED BY: Peng Valera MD IV FLUIDS: Crystalloids. ESTIMATED BLOOD LOSS: 50 mL. INTRAOPERATIVE FINDINGS: Necrotic gallbladder and necrotic cystic duct. SPECIMEN: Gallbladder with stones. BRIEF HISTORY: Mr. Mondragon is a very pleasant 83-year-old gentleman who came to the hospital complaining of epigastric right upper quadrant abdominal pain and upon further investigation, ultrasound and a CAT scan, the patient was found to have acute cholecystitis. All the risks and benefits of the procedure were explained to the patient with the patient having a full understanding of all the risks and benefits involved. Informed consent was obtained and the patient was taken to the operating room for the above-stated procedure. DESCRIPTION OF PROCEDURE: The patient was brought into the operating room and placed supine on the operating room table. Bilateral Flowtron boots were applied to the patient's lower extremities. After successful induction of anesthesia and successful endotracheal intubation by the anesthesia team, the patient's abdomen was prepped with ChloraPrep stick and draped in a standard surgical fashion. Prior to the beginning of the procedure, a time-out was called in the room and everyone in the room were in agreement. Using Veress needle, the patient's abdomen was entered at the umbilicus and pneumoperitoneum was achieved with good opening pressures. Once this was accomplished, using an #11-blade scalpel knife, an approximately 5-mm incision was made in the longitudinal fashion in the supraumbilical area and subsequent to that, the 11 mm trocar was introduced into the patient's abdomen. At this point in time, a 5-mm 0-degree scope was introduced into the patient's abdomen. The abdomen was inspected. We immediately were able to visualize fibrinous exudate and omentum wrapping the gallbladder and the omentum stuck to the anterior abdominal wall and right upper quadrant. Subsequent to that, attention was turned to the subxiphoid area. Using the #11-blade scalpel knife, an approximately 5-mm incision was made in transverse fashion and subsequent to that, a 5-mm trocar was introduced into the patient's abdomen. At this point in time, the omentum was teased off the gallbladder and the gallbladder appeared to be severely necrotic. At this point in time, attention was turned to the right side of the patient's abdomen. Using a #11-blade scalpel knife, two 5-mm incisions were made on the right side of the patient's abdomen in a transverse fashion. Subsequent to that, two 5-mm trocars were introduced into the patient's abdomen. Once this was accomplished, the gallbladder was grasped at the fundus and Santo's pouch and using suction irrigation device, the dissection was carried down towards the cystic duct. Once the cystic duct was encountered, it appeared to be necrotic and disintegrated. So, at this point in time, [place] dissector was used to dissect around the cystic duct and around the cystic artery and at this point in time, critical view of safety was achieved. Once this was accomplished, the cystic duct was clipped distally with one clip and transected with laparoscopic scissors and the cystic artery was clipped with two clips proximal, one distal, and transected with laparoscopic scissors. Upon inspection of the cystic duct stump, it appeared that it was severely necrotic and it had a hole that was leaking bile. So, at this point in time, I made a decision to use the Vicryl Endoloop. The cystic duct was grabbed with the [place] dissector and the Vicryl Endoloop was placed around the cystic duct stump below the area of the hole that was leaking bile. At this point in time, upon further dissection, we encountered posterior branch of the cystic artery that was dissected out with a [place] dissector, clipped with two clips proximal, one distal and transected with laparoscopic scissors. At this point in time, gallbladder was dissected off the gallbladder fossa using hook electrical cautery and once the gallbladder was completely freed up from the gallbladder fossa, EndoCatch bag was introduced into the patient's abdomen. Gallbladder was placed inside of the bag and the bag was closed. At this point in time, gallbladder fossa was inspected for hemostasis. Hemostasis was achieved with hook electrical cautery. At this point in time, the gallbladder fossa was copiously irrigated with sterile saline and the fluid was suctioned out. At this point in time, I made the decision to place one sheath of Surgicel into the gallbladder fossa. It was introduced with a 11-mm trocar and placed into the gallbladder fossa. At this point in time, I made the decision to use a #19 Vish drain. The Vish drain was introduced into the patient's abdomen and it was brought out for the most lateral side of the 5-mm trocar on the patient's right side and the Vish drain was secured in place with 0 silk suture. At this point in time, an 11-mm trocar together with EndoCatch bag and gallbladder were removed from the patient's abdomen and passed off to the [facility] as a specimen. Fascial layer at the umbilical port site was closed with 0 Vicryl suture and UR-5 needle in a [id number] fashion. At this point in time, the patient's abdomen was fully desufflated. The rest of the trocars were removed from the patient's abdomen and the skin was closed with 4-0 Monocryl suture in a running subcuticular fashion. At the end of the procedure, incision sites were infiltrated with Marcaine, local anesthetic. The patient's abdomen was washed and dried, and Dermabond was applied to the site of the incisions as well as 4 x 4 and a medium-sized Tegaderm was applied to the site of the insertion of the Vish drain. The patient was successfully extubated by the anesthesia team, transferred to the stretcher, and taken to the recovery room in a stable condition. At the end of the procedure, all instrument counts, needles, and sponges were correct. Cesar Romo MD
[2019-01-16 05:46] LABS: BASO % 0.2 % (0.0-2.0); EOS % 0.1 % (0.0-4.0); HEMOGLOBIN 11.9 g/dL (12.0-18.0); LYMPH # 0.6 K/uL (1.0-4.3); LYMPH % 4.5 % (20.0-40.0); MEAN CELL VOLUME 89.8 fl (80.0-94.0); MEAN CORPUSCULAR HEMOGLOBIN 29.6 pg (27.0-31.0); MEAN PLATELET VOLUME 8.7 fl (7.2-11.7); MONO # 0.8 K/uL (0.0-0.8); MONO % 6.6 % (0.0-10.0); NEUT # 11.3 K/uL (1.8-7.0); NEUT % 88.6 % (50.0-75.0); PLATELET COUNT 248 K/uL (130-400); RBC 4.03 Mil/uL (4.40-5.90); RED CELL DISTRIBUTION WIDTH 14.3 % (11.5-14.5); WHITE BLOOD COUNT 12.8 K/uL (4.8-10.8)
[2019-01-16 05:53] LABS: ALB/GLOB RATIO 0.9 (1.0-2.1); ALBUMIN 2.8 g/dL (3.5-5.0); CALCIUM 7.8 mg/dL (8.4-10.2)
[2019-01-16] MEDS: Enoxaparin 30 mg Syringe SC SCH (08:48)
[2019-01-16] MEDS: Dextrose 5%/Lactated Ringer's 1,000 ML IV SCH ×2 (08:57→17:17)
--- NOTE | 2019-01-16 09:26 | CP.PCM.PN ---
<Rochelle Larkin - Last Filed: 01/16/19 11:05> Subjective - Date & Time of Evaluation Date of Evaluation: 01/16/19 Time of Evaluation: 08:40 - Subjective Subjective: Patient seen and examined at bedside this morning. Reports RUQ pain with deep respiration. Denies nausea, vomiting, diarrhea, urinary symptoms. Febrile overni ght (100.7), tylenol was given and it was resolved. Objective - Vital Signs/Intake and Output Vital Signs (last 24 hours): Temp Pulse Resp BP Pulse Ox 97.6 F 77 20 145/74 95 01/16/19 07:49 01/16/19 07:49 01/16/19 07:49 01/16/19 07:49 01/16/19 07:49 Intake and Output: 01/16/19 01/16/19 06:59 18:59 Intake Total 1100 Output Total 100 Balance 1000 - Medications Medications: Current Medications Acetaminophen (Tylenol 325 Mg Supp) 325 mg MO Q4 PRN PRN Reason: Pain, Mild (1-3) Amlodipine Besylate (Norvasc) 5 mg PO DAILY [facility] Last Admin: 01/15/19 10:55 Dose: Not Given Enoxaparin Sodium (Lovenox) 30 mg SC DAILY [facility]; Protocol Last Admin: 01/16/19 08:48 Dose: 30 mg Piperacillin Sod/Tazobactam (Sod 2.25 gm/ Sodium Chloride) 100 mls @ 100 mls/hr IVPB Q6 [facility]; Protocol Last Admin: 01/16/19 05:05 Dose: 100 mls/hr Dextrose/Lactated Ringer's (Dextrose 5%/Lactated Ringer's) 1,000 mls @ 115 mls/hr IV .Q8H42M [facility] Stop: 01/17/19 06:56 Last Admin: 01/16/19 08:57 Dose: 115 mls/hr Morphine Sulfate (Morphine) 4 mg IVP Q6 PRN PRN Reason: Pain, severe (8-10) Ondansetron HCl (Zofran Inj) 4 mg IVP Q4 PRN PRN Reason: Nausea/Vomiting Oxycodone/Acetaminophen (Percocet 5/325 Mg Tab) 1 tab PO Q4 PRN PRN Reason: Pain, moderate (4-7) Stop: 01/18/19 17:19 - Labs Labs: 01/16/19 04:25 01/16/19 04:25 PT 13.5 Seconds (9.8-13.1) H 01/14/19 04:25 INR 1.2 01/14/19 04:25 APTT 32.3 Seconds (25.6-37.1) 01/14/19 04:25 - Constitutional Appears: Non-toxic, No Acute Distress - Eye Exam Eye Exam: Normal appearance - ENT Exam ENT Exam: Mucous Membranes Moist, Normal Exam - Neck Exam Neck Exam: Normal Inspection - Respiratory Exam Respiratory Exam: Clear to Ausculation Bilateral, NORMAL BREATHING PATTERN. absent: Accessory Muscle Use, Chest Wall Tenderness, Decreased Breath Sounds, P rolonged Expiratory Phase, Rales, Rhonchi, Respiratory Distress, Stridor - Cardiovascular Exam Cardiovascular Exam: REGULAR RHYTHM, +S1, +S2 - GI/Abdominal Exam GI & Abdominal Exam: Soft, Tenderness (RUQ tenderness; CARSON bulb in place with 5cc of serosanguinous fluid; Incision sites dry, clean and intact. No drainage from sites. ), Normal Bowel Sounds (present in all four quadrants). absent: Distended, Firm, Guarding, Rigid, Mass, Rebound - Extremities Exam Extremities Exam: Full ROM, Normal Capillary Refill, Normal Inspection. absent: Calf Tenderness, Joint Swelling, Pedal Edema, Tenderness - Neurological Exam Neurological Exam: Alert, Awake - Psychiatric Exam Psychiatric exam: Normal Affect, Normal Mood - Skin Skin Exam: Dry, Intact, Normal Color, Warm Assessment and Plan - Assessment and Plan (Free Text) Assessment: 83 year old male with PMH of HTN admitted with abdominal pain admitted with acute cholelithiasis s/p Lap Cholecystectomy POD #1. Plan: Acute Cholelithiasis s/p Laproscopic Cholecystectomy - POD 1 - febrile over night- tylenol was given- now resolved. - Leukocytosis of 12.8 today - RUQ U/S: Echogenic sludge or minimally shadowing gallstones in GB without evidence of acute cholecystitis. Non obstructing R renal calculi. - ABD/pelvis CT: cholelithiasis, Gallbladder wall thickening and isak- cholecystic haziness thought compatible with acute cholecystitis. Diverticulosis coli without evidence of acute diverticulitis in the sigmoid and rectosigmoid regions. 1.7 cm non-obstructing calculus in the lower right renal pole. - General surgery- Dr. Romo- [facility] appreciated - C/w Zosyn 2.25gm Q6hr (Day #4) s/p Vanco (1 dose) - blood cx no growth @ 2 days, urine cx negative - PT/OT CKD stage 3 acute on chronic- resolving - BUN/Cr: 22/1.8 - GFR: 44 - gentle hydration - continue to follow CMP HTN - chronic, uncontrolled - BNP 4620, trop neg - no home meds - Added Norvasc 5mg - continue to monitor Diet Liquid diet DVT ppx - lovenox 30mg SC - SCD <Jacki Mayo - Last Filed: 01/16/19 14:13> Objective - Vital Signs/Intake and Output Vital Signs (last 24 hours): Temp Pulse Resp BP Pulse Ox 98.0 F 92 H 20 103/66 97 01/16/19 11:52 01/16/19 11:52 01/16/19 11:52 01/16/19 11:52 01/16/19 11:52 Intake and Output: 01/16/19 01/16/19 06:59 18:59 Intake Total 1100 Output Total 100 Balance 1000 - Medications Medications: Current Medications Acetaminophen (Tylenol 325 Mg Supp) 325 mg MO Q4 PRN PRN Reason: Pain, Mild (1-3) Amlodipine Besylate (Norvasc) 5 mg PO DAILY [facility] Last Admin: 01/16/19 09:51 Dose: 5 mg Enoxaparin Sodium (Lovenox) 30 mg SC DAILY [facility]; Protocol Last Admin: 01/16/19 08:48 Dose: 30 mg Piperacillin Sod/Tazobactam (Sod 2.25 gm/ Sodium Chloride) 100 mls @ 100 mls/hr IVPB Q6 [facility]; Protocol Last Admin: 01/16/19 09:50 Dose: 100 mls/hr Dextrose/Lactated Ringer's (Dextrose 5%/Lactated Ringer's) 1,000 mls @ 115 mls/hr IV .Q8H42M [facility] Stop: 01/17/19 06:56 Last Admin: 01/16/19 08:57 Dose: 115 mls/hr Morphine Sulfate (Morphine) 4 mg IVP Q6 PRN PRN Reason: Pain, severe (8-10) Ondansetron HCl (Zofran Inj) 4 mg IVP Q4 PRN PRN Reason: Nausea/Vomiting Oxycodone/Acetaminophen (Percocet 5/325 Mg Tab) 1 tab PO Q4 PRN PRN Reason: Pain, moderate (4-7) Stop: 01/18/19 17:19 Last Admin: 01/16/19 10:01 Dose: 1 tab - Labs Labs: 01/16/19 04:25 01/16/19 04:25 PT 13.5 Seconds (9.8-13.1) H 01/14/19 04:25 INR 1.2 01/14/19 04:25 APTT 32.3 Seconds (25.6-37.1) 01/14/19 04:25 Attending/Attestation - Attestation I have personally seen and examined this patient.: Yes I have fully participated in the care of the patient.: Yes I have reviewed all pertinent clinical information, including history, physical exam and plan: Yes Notes (Text): Sepsis ( POA) due to Acute Cholecystitis ( Necrotic) s/p Laparoscopic Cholecystectomy ZENOBIA on CKD Stage III HTN - Post op Day 1 - low grade fever, no flatus, no BM , + BS - Advance to Clear Liquid diet today - IVF hydration - cont IV Zosyn -Lactic acid elevated to 3.5 on admission now normal. Leukocytosis 27k on admission -Cardio consulted for Cardiac eval prior to any surgery- Dr Silva deemed pt stable for proposed surgery - Creatinine better ( 1.7 from 2.2) - cont Norvasc 5 mg daily - DVT proph with Lovenox
[2019-01-16] MEDS: Oxycodone/Acetaminophen 5/325 mg Tab PO PRN (10:01)
--- NOTE | 2019-01-16 10:17 | CP.PCM.PN ---
Objective - Vital Signs/Intake and Output Vital Signs (last 24 hours): Temp Pulse Resp BP Pulse Ox 97.6 F 77 20 145/79 95 01/16/19 07:49 01/16/19 09:51 01/16/19 07:49 01/16/19 09:51 01/16/19 07:49 Intake and Output: 01/16/19 01/16/19 06:59 18:59 Intake Total 1100 Output Total 100 Balance 1000 - Medications Medications: Current Medications Acetaminophen (Tylenol 325 Mg Supp) 325 mg NV Q4 PRN PRN Reason: Pain, Mild (1-3) Amlodipine Besylate (Norvasc) 5 mg PO DAILY [facility] Last Admin: 01/16/19 09:51 Dose: 5 mg Enoxaparin Sodium (Lovenox) 30 mg SC DAILY [facility]; Protocol Last Admin: 01/16/19 08:48 Dose: 30 mg Piperacillin Sod/Tazobactam (Sod 2.25 gm/ Sodium Chloride) 100 mls @ 100 mls/hr IVPB Q6 [facility]; Protocol Last Admin: 01/16/19 09:50 Dose: 100 mls/hr Dextrose/Lactated Ringer's (Dextrose 5%/Lactated Ringer's) 1,000 mls @ 115 mls/hr IV .Q8H42M [facility] Stop: 01/17/19 06:56 Last Admin: 01/16/19 08:57 Dose: 115 mls/hr Morphine Sulfate (Morphine) 4 mg IVP Q6 PRN PRN Reason: Pain, severe (8-10) Ondansetron HCl (Zofran Inj) 4 mg IVP Q4 PRN PRN Reason: Nausea/Vomiting Oxycodone/Acetaminophen (Percocet 5/325 Mg Tab) 1 tab PO Q4 PRN PRN Reason: Pain, moderate (4-7) Stop: 01/18/19 17:19 Last Admin: 01/16/19 10:01 Dose: 1 tab - Labs Labs: 01/16/19 04:25 01/16/19 04:25 PT 13.5 Seconds (9.8-13.1) H 01/14/19 04:25 INR 1.2 01/14/19 04:25 APTT 32.3 Seconds (25.6-37.1) 01/14/19 04:25
--- NOTE | 2019-01-16 10:36 | CP.PCM.PN ---
Subjective - Date & Time of Evaluation Date of Evaluation: 01/16/19 Time of Evaluation: 10:30 - Subjective Subjective: General Surgery Pt seen and examined this AM. He c/o thirst at this time and some RUQ pain. Pt has dementia and no visitors are present at bedside at this time. T max 100.7. Pt has not been using his IS. Upon demonstration he can barely reach 250. Labs and vitals noted. LFTs noted. Sawyer drain output: 275ml serosanguinous. PE Gen: Pt laying in bed in NAD Skin: warm, see abd Cardio: s1s2 RRR Lungs: CTA bilaterally, (+) poor inspiratory effort. Abd: Soft, mildly distended, (+) sawyer drain with serosanguinous drainage, (+) drsg saturated surrounding drain. Other laparoscopic incisions dermabonded, c/d/i. Extr: (-) calf tenderness bilaterally A/P POD 1 s/p lap cholecystectomy, (+) gangrenous GB Advance diet to clear liquids today Pt needs to be reminded on how to use the IS Encourage OOB Monitor drain output Continue antibiotics Labs in AM Continue IVF today. Objective - Vital Signs/Intake and Output Vital Signs (last 24 hours): Temp Pulse Resp BP Pulse Ox 97.6 F 77 20 145/79 95 01/16/19 07:49 01/16/19 09:51 01/16/19 07:49 01/16/19 09:51 01/16/19 07:49 Intake and Output: 01/16/19 01/16/19 06:59 18:59 Intake Total 1100 Output Total 100 Balance 1000 - Medications Medications: Current Medications Acetaminophen (Tylenol 325 Mg Supp) 325 mg NE Q4 PRN PRN Reason: Pain, Mild (1-3) Amlodipine Besylate (Norvasc) 5 mg PO DAILY [facility] Last Admin: 01/16/19 09:51 Dose: 5 mg Enoxaparin Sodium (Lovenox) 30 mg SC DAILY [facility]; Protocol Last Admin: 01/16/19 08:48 Dose: 30 mg Piperacillin Sod/Tazobactam (Sod 2.25 gm/ Sodium Chloride) 100 mls @ 100 mls/hr IVPB Q6 [facility]; Protocol Last Admin: 01/16/19 09:50 Dose: 100 mls/hr Dextrose/Lactated Ringer's (Dextrose 5%/Lactated Ringer's) 1,000 mls @ 115 mls/hr IV .Q8H42M [facility] Stop: 01/17/19 06:56 Last Admin: 01/16/19 08:57 Dose: 115 mls/hr Morphine Sulfate (Morphine) 4 mg IVP Q6 PRN PRN Reason: Pain, severe (8-10) Ondansetron HCl (Zofran Inj) 4 mg IVP Q4 PRN PRN Reason: Nausea/Vomiting Oxycodone/Acetaminophen (Percocet 5/325 Mg Tab) 1 tab PO Q4 PRN PRN Reason: Pain, moderate (4-7) Stop: 01/18/19 17:19 Last Admin: 01/16/19 10:01 Dose: 1 tab - Labs Labs: 01/16/19 04:25 01/16/19 04:25 PT 13.5 Seconds (9.8-13.1) H 01/14/19 04:25 INR 1.2 01/14/19 04:25 APTT 32.3 Seconds (25.6-37.1) 01/14/19 04:25
[2019-01-16 10:54] LABS: LYMPHOCYTE 6 % (20-50); MONOCYTE 3 % (0-10); NEUTROPHIL 91 % (42-75); PLATELET ESTIMATE NORMAL (NORMAL); TOTAL CELLS COUNTED 100
[2019-01-16 10:55] LABS: HYPOCHROMIC SLIGHT
[2019-01-16 10:56] LABS: LARGE PLATELETS PRESENT
[2019-01-17] MEDS: Dextrose 5%/Lactated Ringer's 1,000 ML IV SCH (04:38)
[2019-01-17 06:11] LABS: BASO % 0.1 % (0.0-2.0); EOS # 0.1 K/uL (0.0-0.7); EOS % 1.5 % (0.0-4.0); HEMOGLOBIN 10.8 g/dL (12.0-18.0); LYMPH # 0.8 K/uL (1.0-4.3); LYMPH % 7.8 % (20.0-40.0); MEAN CELL VOLUME 89.5 fl (80.0-94.0); MEAN CORPUSCULAR HEMOGLOBIN 30.1 pg (27.0-31.0); MEAN CORPUSCULAR HGB CONC 33.6 g/dL (33.0-37.0); MEAN PLATELET VOLUME 8.7 fl (7.2-11.7); MONO # 0.7 K/uL (0.0-0.8); MONO % 6.8 % (0.0-10.0); NEUT # 8.2 K/uL (1.8-7.0); NEUT % 83.8 % (50.0-75.0); RBC 3.59 Mil/uL (4.40-5.90); RED CELL DISTRIBUTION WIDTH 14.6 % (11.5-14.5); WHITE BLOOD COUNT 9.8 K/uL (4.8-10.8)
[2019-01-17 06:27] LABS: ALB/GLOB RATIO 0.9 (1.0-2.1); ALBUMIN 2.7 g/dL (3.5-5.0); CALCIUM 8.1 mg/dL (8.4-10.2)
[2019-01-17] MEDS: Enoxaparin 30 mg Syringe SC SCH (08:59)
[2019-01-17] MEDS ORDERED: Enoxaparin 30 mg Syringe SC SCH (09:00)
--- NOTE | 2019-01-17 09:42 | CP.PCM.PN ---
Subjective - Date & Time of Evaluation Date of Evaluation: 01/17/19 Time of Evaluation: 09:38 - Subjective Subjective: General Surgery Pt seen and examined this AM. He reports he continues to have RUQ pain. He is confused, he believes the year is 2068. Pt has been drinking clears per RN. Afebrile. Labs and vitals noted. Drain 220ml in 24 hrs. Bump in creat noted. LFTs normal. PE Gen: Pt sitting in bed in NAD, alert to self and place. Skin: warm and dry. Cardio: s1s2 RRR Lungs: CTA bilaterally Abd: Soft, (-) distention, (+) RUQ tenderness, (+) sawyer drain with bilious output, laparoscopic incisions dermabonded c/d/i Extr: (+) SCD boots in place, (-) apparent calf tenderness A/P POD 2 s/p lap cholecystectomy, (+) gangrenous GB HIDA scan today Rec GI consult, medicine made aware. NPO Pt needs to be reminded on how to use the IS Encourage OOB Monitor drain output Continue antibiotics Labs in AM IVF reordered. Objective - Vital Signs/Intake and Output Vital Signs (last 24 hours): Temp Pulse Resp BP Pulse Ox 97.6 F 74 20 145/57 L 95 01/17/19 08:54 01/17/19 09:00 01/17/19 08:54 01/17/19 09:00 01/17/19 08:54 Intake and Output: 01/17/19 01/17/19 06:59 18:59 Intake Total 1355 Output Total 1020 Balance 335 - Medications Medications: Current Medications Acetaminophen (Tylenol 325 Mg Supp) 325 mg MD Q4 PRN PRN Reason: Pain, Mild (1-3) Amlodipine Besylate (Norvasc) 5 mg PO DAILY [facility] Last Admin: 01/17/19 09:00 Dose: 5 mg Enoxaparin Sodium (Lovenox) 30 mg SC DAILY [facility]; Protocol Last Admin: 01/17/19 08:59 Dose: 30 mg Piperacillin Sod/Tazobactam (Sod 2.25 gm/ Sodium Chloride) 100 mls @ 100 mls/hr IVPB Q6 [facility]; Protocol Last Admin: 01/17/19 09:04 Dose: 100 mls/hr Sodium Chloride (Sodium Chloride 0.9%) 1,000 mls @ 120 mls/hr IV .Q8H20M [facility] Stop: 01/18/19 09:18 Morphine Sulfate (Morphine) 4 mg IVP Q6 PRN PRN Reason: Pain, severe (8-10) Ondansetron HCl (Zofran Inj) 4 mg IVP Q4 PRN PRN Reason: Nausea/Vomiting Oxycodone/Acetaminophen (Percocet 5/325 Mg Tab) 1 tab PO Q4 PRN PRN Reason: Pain, moderate (4-7) Stop: 01/18/19 17:19 Last Admin: 01/16/19 10:01 Dose: 1 tab - Labs Labs: 01/17/19 05:20 01/17/19 05:20 PT 13.5 Seconds (9.8-13.1) H 01/14/19 04:25 INR 1.2 01/14/19 04:25 APTT 32.3 Seconds (25.6-37.1) 01/14/19 04:25
--- NOTE | 2019-01-17 09:43 | CP.PCM.PN ---
<Rochelle Larkin - Last Filed: 01/17/19 10:13> Subjective - Date & Time of Evaluation Date of Evaluation: 01/17/19 Time of Evaluation: 09:42 - Subjective Subjective: Patient seen and examined at bedside. He is confused and oriented only to himself and place, not time. Denies abdominal pain. Denies chest pain, shortness of breath, urinary symptoms. No acute overnight events. - CARSON drain - 220mL over 24 hours. (serosanguinous mixed with bilous fluid) Objective - Vital Signs/Intake and Output Vital Signs (last 24 hours): Temp Pulse Resp BP Pulse Ox 97.6 F 74 20 145/57 L 95 01/17/19 08:54 01/17/19 09:00 01/17/19 08:54 01/17/19 09:00 01/17/19 08:54 Intake and Output: 01/17/19 01/17/19 06:59 18:59 Intake Total 1355 Output Total 1020 Balance 335 - Medications Medications: Current Medications Acetaminophen (Tylenol 325 Mg Supp) 325 mg ND Q4 PRN PRN Reason: Pain, Mild (1-3) Amlodipine Besylate (Norvasc) 5 mg PO DAILY [facility] Last Admin: 01/17/19 09:00 Dose: 5 mg Enoxaparin Sodium (Lovenox) 30 mg SC DAILY [facility] [place]; Protocol Last Admin: 01/17/19 08:59 Dose: 30 mg Piperacillin Sod/Tazobactam (Sod 2.25 gm/ Sodium Chloride) 100 mls @ 100 mls/hr IVPB Q6 [facility]; Protocol Last Admin: 01/17/19 09:04 Dose: 100 mls/hr Sodium Chloride (Sodium Chloride 0.9%) 1,000 mls @ 120 mls/hr IV .Q8H20M [facility] Stop: 01/18/19 09:18 Morphine Sulfate (Morphine) 4 mg IVP Q6 PRN PRN Reason: Pain, severe (8-10) Ondansetron HCl (Zofran Inj) 4 mg IVP Q4 PRN PRN Reason: Nausea/Vomiting Oxycodone/Acetaminophen (Percocet 5/325 Mg Tab) 1 tab PO Q4 PRN PRN Reason: Pain, moderate (4-7) Stop: 01/18/19 17:19 Last Admin: 01/16/19 10:01 Dose: 1 tab - Labs Labs: 01/17/19 05:20 01/17/19 05:20 PT 13.5 Seconds (9.8-13.1) H 01/14/19 04:25 INR 1.2 01/14/19 04:25 APTT 32.3 Seconds (25.6-37.1) 01/14/19 04:25 - Constitutional Appears: Non-toxic, No Acute Distress, Confused - Eye Exam Eye Exam: Normal appearance - ENT Exam ENT Exam: Mucous Membranes Moist - Respiratory Exam Respiratory Exam: Clear to Ausculation Bilateral, NORMAL BREATHING PATTERN - Cardiovascular Exam Cardiovascular Exam: REGULAR RHYTHM, +S1, +S2 - GI/Abdominal Exam GI & Abdominal Exam: Soft, Tenderness (RUQ tenderness; drain in place- serosanguinous fluid present), Normal Bowel Sounds (incision sites clean, non-e rythematous; CARSON drain 220 mL serosanguinous mixed with bile). absent: Distended, Firm, Guarding, Rigid, Rebound - Extremities Exam Extremities Exam: Normal Capillary Refill, Normal Inspection. absent: Calf Tenderness, Joint Swelling, Pedal Edema, Tenderness - Neurological Exam Neurological Exam: Alert (Confused) - Psychiatric Exam Psychiatric exam: Normal Affect, Normal Mood - Skin Skin Exam: Dry, Intact, Normal Color, Warm Assessment and Plan - Assessment and Plan (Free Text) Assessment: 83 year old male with PMH of HTN admitted with abdominal pain admitted with acute cholelithiasis s/p Lap Cholecystectomy POD #2. Plan: Acute Cholelithiasis s/p Laproscopic Cholecystectomy - POD 2 - afebrile over night - RUQ U/S: Echogenic sludge or minimally shadowing gallstones in GB without evidence of acute cholecystitis. Non obstructing R renal calculi. - ABD/pelvis CT: cholelithiasis, Gallbladder wall thickening and isak- cholecystic haziness thought compatible with acute cholecystitis. Diverticulosis coli without evidence of acute diverticulitis in the sigmoid and rectosigmoid regions. 1.7 cm non-obstructing calculus in the lower right renal pole. - General surgery- Dr. Romo- reccs appreciated: HIDA scan and GI consult - C/w Zosyn 2.25gm Q6hr (Day #5) s/p Vanco (1 dose) - blood cx no growth @ 2 days, urine cx negative - PT/OT - NPO CKD stage 3 acute on chronic- resolving - BUN/Cr: 29/2.4 - GFR: 31 - gentle hydration - continue to follow CMP HTN - chronic, uncontrolled - BNP 4620, trop neg - no home meds - Added Norvasc 5mg - continue to monitor Diet NPO DVT ppx - lovenox 30mg SC - SCD <Mary Hutchins - Last Filed: 01/18/19 21:29> Objective - Vital Signs/Intake and Output Vital Signs (last 24 hours): Temp Pulse Resp BP Pulse Ox 98 F 72 18 147/77 95 01/18/19 19:54 01/18/19 19:54 01/18/19 19:54 01/18/19 19:54 01/18/19 19:54 - Medications Medications: Current Medications Acetaminophen (Tylenol 325 Mg Supp) 325 mg ND Q4 PRN PRN Reason: Pain, Mild (1-3) Amlodipine Besylate (Norvasc) 5 mg PO DAILY [facility] Last Admin: 01/18/19 09:41 Dose: 5 mg Enoxaparin Sodium (Lovenox) 30 mg SC DAILY [facility]; Protocol Last Admin: 01/18/19 09:40 Dose: 30 mg Piperacillin Sod/Tazobactam (Sod 2.25 gm/ Sodium Chloride) 100 mls @ 100 mls/hr IVPB Q6 [facility]; Protocol Last Admin: 01/18/19 17:46 Dose: 100 mls/hr Sodium Chloride (Sodium Chloride 0.9%) 1,000 mls @ 100 mls/hr IV .Q10H [facility] Stop: 01/19/19 17:58 Last Admin: 01/18/19 18:24 Dose: 100 mls/hr Morphine Sulfate (Morphine) 4 mg IVP Q6 PRN PRN Reason: Pain, severe (8-10) Ondansetron HCl (Zofran Inj) 4 mg IVP Q4 PRN PRN Reason: Nausea/Vomiting Oxycodone/Acetaminophen (Percocet 5/325 Mg Tab) 1 tab PO Q4 PRN PRN Reason: Pain, moderate (4-7) Last Admin: 01/18/19 17:52 Dose: 1 tab - Labs Labs: 01/18/19 04:35 01/18/19 04:35 PT 13.5 Seconds (9.8-13.1) H 01/14/19 04:25 INR 1.2 01/14/19 04:25 APTT 32.3 Seconds (25.6-37.1) 01/14/19 04:25 Attending/Attestation - Attestation I have personally seen and examined this patient.: Yes I have fully participated in the care of the patient.: Yes I have reviewed all pertinent clinical information, including history, physical exam and plan: Yes Notes (Text): agree with findings and plan as above.
--- NOTE | 2019-01-17 15:35 | NM ---
Date of service: 01/17/2019 PROCEDURE: Nuclear Medicine Hepatobiliary Scan HISTORY: Status post cholecystectomy. Suspected bile leak. COMPARISON: None available. TECHNIQUE: 5.250 mCi of technetium 99m Mebrofenin was administered intravenously. Planar images of the abdomen were obtained at 5 min intervals to 60 mins. Delayed images were also obtained. FINDINGS: LIVER: Timely and homogenous uptake. COMMON BILE DUCT: identified at 5 mins. GALLBLADDER: Status post cholecystectomy SMALL BOWEL: Identified at 30 mins. There is no bile collection identified at any point during this examination outside of the confines of the hepatic biliary tree and small bowel.. IMPRESSION: No evidence of bile leak. Status post cholecystectomy.
[2019-01-17] MEDS: Oxycodone/Acetaminophen 5/325 mg Tab PO PRN (16:09)
[2019-01-17] MEDS: Sodium Chloride 0.9% 1,000 ML IV SCH ×2 (16:12→18:10)
[2019-01-18] MEDS: Sodium Chloride 0.9% 1,000 ML IV SCH ×2 (03:47→18:24)
[2019-01-18 05:43] LABS: HEMOGLOBIN 9.9 g/dL (12.0-18.0); MEAN CELL VOLUME 89.4 fl (80.0-94.0); MEAN CORPUSCULAR HEMOGLOBIN 30.2 pg (27.0-31.0); MEAN CORPUSCULAR HGB CONC 33.8 g/dL (33.0-37.0); RBC 3.28 Mil/uL (4.40-5.90); RED CELL DISTRIBUTION WIDTH 14.4 % (11.5-14.5); WHITE BLOOD COUNT 8.4 K/uL (4.8-10.8)
--- NOTE | 2019-01-18 05:59 | CON ---
DATE: 01/17/2019 REFERRING DOCTOR: Dr. Hutchins REASON FOR CONSULTATION: Abdominal pain. HISTORY OF PRESENT ILLNESS: This is a pleasant 83-year-old man. The patient comes in initially early in the week with abdominal pain and discomfort, had cholecystitis, since had cholecystectomy and now he is having abdominal pain postoperatively. The patient is since complaining of pain in all quadrants. No fever. No chills. No nausea or vomiting. Currently lying in bed comfortable, in no apparent distress. PAST MEDICAL HISTORY: As above. PAST SURGICAL HISTORY: As above. MEDICATIONS: Reviewed. REVIEW OF SYSTEMS: All other systems have been reviewed and negative apart from the HPI. PHYSICAL EXAMINATION: GENERAL: This is a well-nourished pleasant elderly-appearing male, lying in bed comfortable, in no apparent distress. VITAL SIGNS: Here in the hospital are grossly unremarkable. HEENT: Head; normocephalic and atraumatic. Eyes; pupils are equally reactive to light bilaterally. No conjunctival pallor or icterus. NECK: Supple. Normal range of motion. No lymphadenopathy appreciated. LUNGS: Coarse breath sounds bilaterally. HEART: S1 and S2. Regular rate and rhythm. No murmurs appreciated. ABDOMEN: Soft and nontender. Some tenderness and discomfort in the lower quadrant. No rebound. No guarding. RECTAL: Deferred. EXTREMITIES: Pulses present bilaterally. SKIN: Warm, dry, and intact. NEUROLOGICAL: A and O x3. LABORATORY DATA: Labs and radiology have been reviewed. WBC is 9.8 down from 12.8, hemoglobin of 10, hematocrit 32.2, and platelet count is 238. LFTs are essentially normal. ASSESSMENT AND PLAN: This is an 83-year-old male with pain, status post cholecystectomy. Concerned of bile leak. We will plan for a HIDA scan. Once that is available, we will make a plan based on that. For now, nothing by mouth and pain controls. Thank you for the consult. Víctor Vogel MD/ PhD cc: Cuong.
[2019-01-18] MEDS ORDERED: Potassium Chloride 20 mEq/15 ml LIQ UD PO ONE (07:51)
--- NOTE | 2019-01-18 09:04 | CP.PCM.PN ---
<Ian Bartlett - Last Filed: 01/18/19 09:02> Subjective - Date & Time of Evaluation Date of Evaluation: 01/18/19 Time of Evaluation: 09:02 - Subjective Subjective: Surgery Progress note- Dr. Hinton Patient resting comfortably at bedside. Currently has an appetite. Minimal Pain. RUQ drain increased drainage 530cc/24hrs bilious. currently NPO. + OOB. Denies fevers, chills, chest pain, shortness of breath. Objective - Vital Signs/Intake and Output Vital Signs (last 24 hours): Temp Pulse Resp BP Pulse Ox 98.2 F 65 20 148/72 99 01/18/19 08:46 01/18/19 08:46 01/18/19 08:46 01/18/19 08:46 01/18/19 08:46 Intake and Output: 01/18/19 01/18/19 06:59 18:59 Intake Total 1280 Output Total 1220 Balance 60 - Medications Medications: Current Medications Acetaminophen (Tylenol 325 Mg Supp) 325 mg ND Q4 PRN PRN Reason: Pain, Mild (1-3) Amlodipine Besylate (Norvasc) 5 mg PO DAILY [facility] Last Admin: 01/17/19 09:00 Dose: 5 mg Enoxaparin Sodium (Lovenox) 30 mg SC DAILY [facility]; Protocol Last Admin: 01/17/19 08:59 Dose: 30 mg Piperacillin Sod/Tazobactam (Sod 2.25 gm/ Sodium Chloride) 100 mls @ 100 mls/hr IVPB Q6 [facility]; Protocol Last Admin: 01/18/19 03:47 Dose: 100 mls/hr Sodium Chloride (Sodium Chloride 0.9%) 1,000 mls @ 120 mls/hr IV .Q8H20M [facility] Stop: 01/18/19 09:18 Last Admin: 01/18/19 03:47 Dose: 120 mls/hr Morphine Sulfate (Morphine) 4 mg IVP Q6 PRN PRN Reason: Pain, severe (8-10) Ondansetron HCl (Zofran Inj) 4 mg IVP Q4 PRN PRN Reason: Nausea/Vomiting Oxycodone/Acetaminophen (Percocet 5/325 Mg Tab) 1 tab PO Q4 PRN PRN Reason: Pain, moderate (4-7) Stop: 01/18/19 17:19 Last Admin: 01/17/19 16:09 Dose: 1 tab - Labs Labs: 01/18/19 04:35 01/18/19 04:35 PT 13.5 Seconds (9.8-13.1) H 01/14/19 04:25 INR 1.2 01/14/19 04:25 APTT 32.3 Seconds (25.6-37.1) 01/14/19 04:25 - Constitutional Appears: Non-toxic, No Acute Distress - Eye Exam Eye Exam: EOMI. absent: Scleral icterus - ENT Exam ENT Exam: Mucous Membranes Moist - Respiratory Exam Respiratory Exam: NORMAL BREATHING PATTERN. absent: Accessory Muscle Use, Respiratory Distress - Cardiovascular Exam Cardiovascular Exam: REGULAR RHYTHM. absent: Bradycardia, Tachycardia - GI/Abdominal Exam GI & Abdominal Exam: Soft. absent: Guarding, Rigid, Tenderness Additional comments: RUQ Drain: 530cc/24hr Bilious drainage - Neurological Exam Neurological Exam: Alert, Awake, Oriented x3 Assessment and Plan - Assessment and Plan (Free Text) Assessment: 83M s/p lap daysi POD#3, now w/ increased bilious output from drain Plan: - npo - c/s GI; all recs appreciated - yesterday HIDA, negative for leak however clinical suspicion still remains high- will treat as such - pain control PRN - OOB and ambulate - Incentive spirometer use - further recs per Surgical attending PGY2 <Zach Hinton - Last Filed: 01/18/19 10:22> Objective - Vital Signs/Intake and Output Vital Signs (last 24 hours): Temp Pulse Resp BP Pulse Ox 98.2 F 65 20 148/72 99 01/18/19 08:46 01/18/19 09:41 01/18/19 08:46 01/18/19 09:41 01/18/19 08:46 Intake and Output: 01/18/19 01/18/19 06:59 18:59 Intake Total 1280 Output Total 1220 Balance 60 - Medications Medications: Current Medications Acetaminophen (Tylenol 325 Mg Supp) 325 mg ND Q4 PRN PRN Reason: Pain, Mild (1-3) Amlodipine Besylate (Norvasc) 5 mg PO DAILY [facility] Last Admin: 01/18/19 09:41 Dose: 5 mg Enoxaparin Sodium (Lovenox) 30 mg SC DAILY [facility]; Protocol Last Admin: 01/18/19 09:40 Dose: 30 mg Piperacillin Sod/Tazobactam (Sod 2.25 gm/ Sodium Chloride) 100 mls @ 100 mls/hr IVPB Q6 [facility]; Protocol Last Admin: 01/18/19 09:36 Dose: 100 mls/hr Morphine Sulfate (Morphine) 4 mg IVP Q6 PRN PRN Reason: Pain, severe (8-10) Ondansetron HCl (Zofran Inj) 4 mg IVP Q4 PRN PRN Reason: Nausea/Vomiting Oxycodone/Acetaminophen (Percocet 5/325 Mg Tab) 1 tab PO Q4 PRN PRN Reason: Pain, moderate (4-7) Stop: 01/18/19 17:19 Last Admin: 01/18/19 09:38 Dose: 1 tab - Labs Labs: 01/18/19 04:35 01/18/19 04:35 PT 13.5 Seconds (9.8-13.1) H 01/14/19 04:25 INR 1.2 01/14/19 04:25 APTT 32.3 Seconds (25.6-37.1) 01/14/19 04:25 Assessment and Plan - Assessment and Plan (Free Text) Plan: seen at bedside, resting comfortably. reports RUQ pain, no nausea or vomiting. drain 540cc/24hrs HIDA scan reviewed, LFTs normal gen: awake, alert, NAD HEENT: NC/AT, EOMI, -scleral icterus abd: soft, Nd, lap port incisions healing well, drain in place with bilious drainage, tender RUQ a/p repeat LFTs in am -trend drain output -full liquid diet -f/u GI
[2019-01-18] MEDS: Oxycodone/Acetaminophen 5/325 mg Tab PO PRN ×2 (09:38→17:52)
[2019-01-18] MEDS: Enoxaparin 30 mg Syringe SC SCH (09:40)
--- NOTE | 2019-01-18 10:24 | CP.PCM.PN ---
<Rochelle Larkin - Last Filed: 01/18/19 10:21> Subjective - Date & Time of Evaluation Date of Evaluation: 01/18/19 Time of Evaluation: 10:21 - Subjective Subjective: Patient seen and examined at bedside. Reports feeling well. Denies chest pain, dypsnea, nausea, vomiting, abdominal pain, diarrhea. Patient had about 500 cc- s erosanguinous mixed with bilious output via CARSON drain overnight. Objective - Vital Signs/Intake and Output Vital Signs (last 24 hours): Temp Pulse Resp BP Pulse Ox 98.2 F 65 20 148/72 99 01/18/19 08:46 01/18/19 09:41 01/18/19 08:46 01/18/19 09:41 01/18/19 08:46 Intake and Output: 01/18/19 01/18/19 06:59 18:59 Intake Total 1280 Output Total 1220 Balance 60 - Medications Medications: Current Medications Acetaminophen (Tylenol 325 Mg Supp) 325 mg [place] Q4 PRN PRN Reason: Pain, Mild (1-3) Amlodipine Besylate (Norvasc) 5 mg PO DAILY [facility] Last Admin: 01/18/19 09:41 Dose: 5 mg Enoxaparin Sodium (Lovenox) 30 mg SC DAILY [facility]; Protocol Last Admin: 01/18/19 09:40 Dose: 30 mg Piperacillin Sod/Tazobactam (Sod 2.25 gm/ Sodium Chloride) 100 mls @ 100 mls/hr IVPB Q6 [facility]; Protocol Last Admin: 01/18/19 09:36 Dose: 100 mls/hr Morphine Sulfate (Morphine) 4 mg IVP Q6 PRN PRN Reason: Pain, severe (8-10) Ondansetron HCl (Zofran Inj) 4 mg IVP Q4 PRN PRN Reason: Nausea/Vomiting Oxycodone/Acetaminophen (Percocet 5/325 Mg Tab) 1 tab PO Q4 PRN PRN Reason: Pain, moderate (4-7) Stop: 01/18/19 17:19 Last Admin: 01/18/19 09:38 Dose: 1 tab - Labs Labs: 01/18/19 04:35 01/18/19 04:35 PT 13.5 Seconds (9.8-13.1) H 04/22/19 04:25 INR 1.2 01/14/19 04:25 APTT 32.3 Seconds (25.6-37.1) 01/14/19 04:25 - Constitutional Appears: Non-toxic, No Acute Distress - Eye Exam Eye Exam: Normal appearance - ENT Exam ENT Exam: Mucous Membranes Moist - Respiratory Exam Respiratory Exam: Clear to Ausculation Bilateral, NORMAL BREATHING PATTERN. absent: Accessory Muscle Use, Chest Wall Tenderness, Decreased Breath Sounds, Prolonged Expiratory Phase, Rales, Rhonchi, Wheezes, Respiratory Distress, Stridor - Cardiovascular Exam Cardiovascular Exam: +S1, +S2 - GI/Abdominal Exam GI & Abdominal Exam: Soft, Normal Bowel Sounds (normoactive bowel sounds in all four quadrants). absent: Distended, Firm, Guarding, Rigid, Tenderness, Rebound - Extremities Exam Extremities Exam: Full ROM, Normal Capillary Refill, Normal Inspection. absent: Calf Tenderness, Joint Swelling, Pedal Edema, Tenderness - Neurological Exam Neurological Exam: Alert, Awake Additional comments: Confused - Psychiatric Exam Psychiatric exam: Normal Affect, Normal Mood - Skin Skin Exam: Dry, Intact, Normal Color, Warm Assessment and Plan - Assessment and Plan (Free Text) Assessment: 83 year old male with PMH of HTN admitted with abdominal pain admitted with acute cholelithiasis s/p Lap Cholecystectomy POD #3. Increased drainage via CARSON (bilious mixed with serosanguinous) Plan: Acute Cholelithiasis s/p Laproscopic Cholecystectomy - POD 3 - afebrile over night - RUQ U/S: Echogenic sludge or minimally shadowing gallstones in GB without evidence of acute cholecystitis. Non obstructing R renal calculi. - ABD/pelvis CT: cholelithiasis, Gallbladder wall thickening and isak-cholecys tic haziness thought compatible with acute cholecystitis. Diverticulosis coli without evidence of acute diverticulitis in the sigmoid and rectosigmoid regions. 1.7 cm non-obstructing calculus in the lower right renal pole. - General surgery- Dr. Romo - GI consult given increase in CARSON drain amount with bilious fluid - C/w Zosyn 2.25gm Q6hr (Day #6) s/p Vanco (1 dose) - blood cx no growth @ 2 days, urine cx negative - PT/OT - HIDA scan: no bile leak CKD stage 3 acute on chronic - BUN/Cr: 21/ 2 - GFR: 39 - gentle hydration - continue to follow CMP HTN - chronic, uncontrolled - BNP 4620, trop neg - no home meds - Added Norvasc 5mg - continue to monitor Diet Liquid diet DVT ppx - lovenox 30mg SC - SCD <Mary Hutchins - Last Filed: 01/18/19 21:17> Objective - Vital Signs/Intake and Output Vital Signs (last 24 hours): Temp Pulse Resp BP Pulse Ox 98 F 72 18 147/77 95 01/18/19 19:54 01/18/19 19:54 01/18/19 19:54 01/18/19 19:54 01/18/19 19:54 - Medications Medications: Current Medications Acetaminophen (Tylenol 325 Mg Supp) 325 mg [place] Q4 PRN PRN Reason: Pain, Mild (1-3) Amlodipine Besylate (Norvasc) 5 mg PO DAILY [facility] Last Admin: 01/18/19 09:41 Dose: 5 mg Enoxaparin Sodium (Lovenox) 30 mg SC DAILY [facility]; Protocol Last Admin: 01/18/19 09:40 Dose: 30 mg Piperacillin Sod/Tazobactam (Sod 2.25 gm/ Sodium Chloride) 100 mls @ 100 mls/hr IVPB Q6 [facility]; Protocol Last Admin: 01/18/19 17:46 Dose: 100 mls/hr Sodium Chloride (Sodium Chloride 0.9%) 1,000 mls @ 100 mls/hr IV .Q10H [facility] Stop: 01/19/19 17:58 Last Admin: 01/18/19 18:24 Dose: 100 mls/hr Morphine Sulfate (Morphine) 4 mg IVP Q6 PRN PRN Reason: Pain, severe (8-10) Ondansetron HCl (Zofran Inj) 4 mg IVP Q4 PRN PRN Reason: Nausea/Vomiting Oxycodone/Acetaminophen (Percocet 5/325 Mg Tab) 1 tab PO Q4 PRN PRN Reason: Pain, moderate (4-7) Last Admin: 01/18/19 17:52 Dose: 1 tab - Labs Labs: 01/18/19 04:35 01/18/19 04:35 PT 13.5 Seconds (9.8-13.1) H 01/14/19 04:25 INR 1.2 01/14/19 04:25 APTT 32.3 Seconds (25.6-37.1) 01/14/19 04:25 Attending/Attestation - Attestation I have personally seen and examined this patient.: Yes I have fully participated in the care of the patient.: Yes I have reviewed all pertinent clinical information, including history, physical exam and plan: Yes Notes (Text): agree with findings and plan as above.
[2019-01-18 10:51] LABS: ALB/GLOB RATIO 0.9 (1.0-2.1); ALBUMIN 2.6 g/dL (3.5-5.0); BILIRUBIN,DIRECT 0.4 mg/ml (0.0-0.4)
[2019-01-19] MEDS: Sodium Chloride 0.9% 1,000 ML IV SCH ×2 (04:03→17:07)
[2019-01-19 06:09] LABS: HEMOGLOBIN 10.6 g/dL (12.0-18.0); MEAN CELL VOLUME 90.5 fl (80.0-94.0); MEAN CORPUSCULAR HGB CONC 33.1 g/dL (33.0-37.0); RBC 3.53 Mil/uL (4.40-5.90); RED CELL DISTRIBUTION WIDTH 14.4 % (11.5-14.5); WHITE BLOOD COUNT 8.9 K/uL (4.8-10.8)
--- NOTE | 2019-01-19 06:21 | CP.PCM.PN ---
<Evan Daley - Last Filed: 01/19/19 06:19> Subjective - Date & Time of Evaluation Date of Evaluation: 01/19/19 Time of Evaluation: 06:19 - Subjective Subjective: General Surgery: Dr Hinton Pt [facility]. Resting comfortably. Complains of thirst, explained to pt he is ok to drink liquids. No other complaints. Pain well controlled. Denies n/v, f/c, sob or chest pain. Has been OOB to chair. Using IS. Drain output significantly decreased ~80-100 cc, remains billious Objective - Vital Signs/Intake and Output Vital Signs (last 24 hours): Temp Pulse Resp BP Pulse Ox 97.7 F 68 20 160/77 H 95 01/19/19 04:05 01/19/19 04:05 01/19/19 04:05 01/19/19 04:05 01/19/19 04:05 Intake and Output: 01/18/19 01/19/19 18:59 06:59 Intake Total 1640 Output Total 160 Balance 1480 - Medications Medications: Current Medications Acetaminophen (Tylenol 325 Mg Supp) 325 mg [place] Q4 PRN PRN Reason: Pain, Mild (1-3) Amlodipine Besylate (Norvasc) 5 mg PO DAILY [facility] Last Admin: 01/18/19 09:41 Dose: 5 mg Enoxaparin Sodium (Lovenox) 30 mg SC DAILY [facility]; Protocol Last Admin: 01/18/19 09:40 Dose: 30 mg Piperacillin Sod/Tazobactam (Sod 2.25 gm/ Sodium Chloride) 100 mls @ 100 mls/hr IVPB Q6 [facility]; Protocol Last Admin: 01/19/19 03:47 Dose: 100 mls/hr Sodium Chloride (Sodium Chloride 0.9%) 1,000 mls @ 100 mls/hr IV .Q10H [facility] Stop: 01/19/19 17:58 Last Admin: 01/19/19 04:03 Dose: Not Given Morphine Sulfate (Morphine) 4 mg IVP Q6 PRN PRN Reason: Pain, severe (8-10) Ondansetron HCl (Zofran Inj) 4 mg IVP Q4 PRN PRN Reason: Nausea/Vomiting Oxycodone/Acetaminophen (Percocet 5/325 Mg Tab) 1 tab PO Q4 PRN PRN Reason: Pain, moderate (4-7) Last Admin: 01/18/19 17:52 Dose: 1 tab - Labs Labs: 01/19/19 05:09 01/18/19 04:35 PT 13.5 Seconds (9.8-13.1) H 01/14/19 04:25 INR 1.2 01/14/19 04:25 APTT 32.3 Seconds (25.6-37.1) 01/14/19 04:25 - Constitutional Appears: Non-toxic, No Acute Distress - ENT Exam ENT Exam: Mucous Membranes Dry - Respiratory Exam Respiratory Exam: absent: Accessory Muscle Use, Respiratory Distress - Cardiovascular Exam Cardiovascular Exam: REGULAR RHYTHM. absent: Tachycardia - GI/Abdominal Exam GI & Abdominal Exam: Soft. absent: Distended, Tenderness Additional comments: incisions c/d/i CARSON w/ 40cc (100 over 24 hours) billious Assessment and Plan - Assessment and Plan (Free Text) Assessment: 83M s/p lap daysi Plan: cont monitor drain output monitor LFTs possibly ADAT pending attending eval further recs to follow will d/w Dr Jamaal Daley, PGY4 <Zach Hinton - Last Filed: 01/19/19 09:08> Objective - Vital Signs/Intake and Output Vital Signs (last 24 hours): Temp Pulse Resp BP Pulse Ox 97.4 F L 69 20 153/68 H 95 01/19/19 07:40 01/19/19 07:40 01/19/19 07:40 01/19/19 07:40 01/19/19 07:40 Intake and Output: 01/19/19 01/19/19 06:59 18:59 Intake Total 1640 Output Total 160 Balance 1480 - Medications Medications: Current Medications Acetaminophen (Tylenol 325 Mg Supp) 325 mg [place] Q4 PRN PRN Reason: Pain, Mild (1-3) Amlodipine Besylate (Norvasc) 5 mg PO DAILY [facility] Last Admin: 01/18/19 09:41 Dose: 5 mg Enoxaparin Sodium (Lovenox) 30 mg SC DAILY [facility]; Protocol Last Admin: 01/18/19 09:40 Dose: 30 mg Piperacillin Sod/Tazobactam (Sod 2.25 gm/ Sodium Chloride) 100 mls @ 100 mls/hr IVPB Q6 [facility]; Protocol Last Admin: 01/19/19 03:47 Dose: 100 mls/hr Sodium Chloride (Sodium Chloride 0.9%) 1,000 mls @ 100 mls/hr IV .Q10H [facility] Stop: 01/19/19 17:58 Last Admin: 01/19/19 04:03 Dose: Not Given Morphine Sulfate (Morphine) 4 mg IVP Q6 PRN PRN Reason: Pain, severe (8-10) Ondansetron HCl (Zofran Inj) 4 mg IVP Q4 PRN PRN Reason: Nausea/Vomiting Oxycodone/Acetaminophen (Percocet 5/325 Mg Tab) 1 tab PO Q4 PRN PRN Reason: Pain, moderate (4-7) Last Admin: 01/18/19 17:52 Dose: 1 tab - Labs Labs: 01/19/19 05:09 01/19/19 05:09 PT 13.5 Seconds (9.8-13.1) H 01/14/19 04:25 INR 1.2 01/14/19 04:25 APTT 32.3 Seconds (25.6-37.1) 01/14/19 04:25 Assessment and Plan - Assessment and Plan (Free Text) Plan: seen at bedside, resting comfortably. Tolerating full liquid diet. +reports epigastric/ruq discomfort. LFTs normal Drain: 160cc bilious gen:awake, alert, NAD HEENT: nc/at, eomi, no sclereal icterus abd: soft, ND, +epigastric/ruq discomfort, drain in place with bilious drainage, -cont fulls -monitor drain output -f/u GI
[2019-01-19 06:24] LABS: ALB/GLOB RATIO 0.9 (1.0-2.1); ALBUMIN 2.8 g/dL (3.5-5.0); CALCIUM 8.4 mg/dL (8.4-10.2)
[2019-01-19] MEDS: Oxycodone/Acetaminophen 5/325 mg Tab PO PRN (10:02)
[2019-01-19] MEDS: Enoxaparin 30 mg Syringe SC SCH (10:04)
--- NOTE | 2019-01-19 10:59 | CP.PCM.PN ---
Subjective - Date & Time of Evaluation Date of Evaluation: 01/19/19 Time of Evaluation: 10:45 - Subjective Subjective: No fever 160 ml bilious drainage from CARSON drain pain controlled + BM and flatus no CP no SOB tolerating Liquid diet Objective - Vital Signs/Intake and Output Vital Signs (last 24 hours): Temp Pulse Resp BP Pulse Ox 97.4 F L 69 20 153/68 H 95 01/19/19 07:40 01/19/19 10:04 01/19/19 07:40 01/19/19 10:04 01/19/19 07:40 Intake and Output: 01/19/19 01/19/19 06:59 18:59 Intake Total 1640 Output Total 160 Balance 1480 - Medications Medications: Current Medications Acetaminophen (Tylenol 325 Mg Supp) 325 mg [place] Q4 PRN PRN Reason: Pain, Mild (1-3) Amlodipine Besylate (Norvasc) 5 mg PO DAILY [facility] Last Admin: 01/19/19 10:04 Dose: 5 mg Enoxaparin Sodium (Lovenox) 30 mg SC DAILY [facility]; Protocol Last Admin: 01/19/19 10:04 Dose: 30 mg Piperacillin Sod/Tazobactam (Sod 2.25 gm/ Sodium Chloride) 100 mls @ 100 mls/hr IVPB Q6 [facility]; Protocol Last Admin: 01/19/19 10:00 Dose: 100 mls/hr Sodium Chloride (Sodium Chloride 0.9%) 1,000 mls @ 100 mls/hr IV .Q10H [facility] Stop: 01/19/19 17:58 Last Admin: 01/19/19 04:03 Dose: Not Given Morphine Sulfate (Morphine) 4 mg IVP Q6 PRN PRN Reason: Pain, severe (8-10) Ondansetron HCl (Zofran Inj) 4 mg IVP Q4 PRN PRN Reason: Nausea/Vomiting Oxycodone/Acetaminophen (Percocet 5/325 Mg Tab) 1 tab PO Q4 PRN PRN Reason: Pain, moderate (4-7) Last Admin: 01/19/19 10:02 Dose: 1 tab - Labs Labs: 01/19/19 05:09 01/19/19 05:09 PT 13.5 Seconds (9.8-13.1) H 01/14/19 04:25 INR 1.2 01/14/19 04:25 APTT 32.3 Seconds (25.6-37.1) 01/14/19 04:25 - Constitutional Appears: Non-toxic, No Acute Distress - Head Exam Head Exam: ATRAUMATIC, NORMAL INSPECTION, NORMOCEPHALIC - Eye Exam Eye Exam: EOMI, Normal appearance Pupil Exam: NORMAL ACCOMODATION - ENT Exam ENT Exam: Mucous Membranes Dry, Normal External Ear Exam - Neck Exam Neck Exam: Full ROM. absent: Meningismus - Respiratory Exam Respiratory Exam: NORMAL BREATHING PATTERN - Cardiovascular Exam Cardiovascular Exam: REGULAR RHYTHM, +S1, +S2 - GI/Abdominal Exam GI & Abdominal Exam: Soft, Tenderness, Normal Bowel Sounds - Extremities Exam Extremities Exam: Full ROM. absent: Calf Tenderness - Back Exam Back Exam: Full ROM. absent: CVA tenderness (L), CVA tenderness (R) - Neurological Exam Neurological Exam: Alert, Awake, CN II-XII Intact, Oriented x3 Neuro motor strength exam: Left Upper Extremity: 5, Right Upper Extremity: 5, Left Lower Extremity: 5, Right Lower Extremity: 5 - Psychiatric Exam Psychiatric exam: Normal Affect, Normal Mood - Skin Skin Exam: Dry, Normal Color, Warm Assessment and Plan - Assessment and Plan (Free Text) Plan: Sepsis ( POA) due to Acute Cholecystitis ( Necrotic) s/p Laparoscopic Cholecystectomy - Bilious drainage from CARSON drain approx 160 ml overnight ( about 50 ml in the buld at present 7am to 11am) - pain controlled- pain only when he gets up or takes deep breath -afebrile, LFTS normal - cont IV Zosyn - Incentive Spirometry, ambulate - tolerating Liquid diet ZENOBIA on CKD Stage III - stable, improving Crea 1.8 today down from 2.4 - IVF hydration HTN - cont Norvasc DVT proph Lovenox
[2019-01-20 06:29] LABS: BASO % 0.4 % (0.0-2.0); EOS # 0.1 K/uL (0.0-0.7); EOS % 1.7 % (0.0-4.0); HEMOGLOBIN 10.4 g/dL (12.0-18.0); LYMPH # 0.8 K/uL (1.0-4.3); LYMPH % 10.1 % (20.0-40.0); MEAN CELL VOLUME 89.4 fl (80.0-94.0); MEAN CORPUSCULAR HEMOGLOBIN 30.2 pg (27.0-31.0); MEAN CORPUSCULAR HGB CONC 33.8 g/dL (33.0-37.0); MEAN PLATELET VOLUME 8.4 fl (7.2-11.7); MONO # 0.5 K/uL (0.0-0.8); MONO % 6.6 % (0.0-10.0); NEUT # 6.7 K/uL (1.8-7.0); NEUT % 81.2 % (50.0-75.0); NRBC % 0.2 % (0.0-0.0); RBC 3.45 Mil/uL (4.40-5.90); RED CELL DISTRIBUTION WIDTH 14.4 % (11.5-14.5); WHITE BLOOD COUNT 8.2 K/uL (4.8-10.8)
[2019-01-20 06:38] LABS: ALB/GLOB RATIO 0.9 (1.0-2.1); ALBUMIN 2.8 g/dL (3.5-5.0)
--- NOTE | 2019-01-20 08:48 | CP.PCM.PN ---
<Rochelle Larkin - Last Filed: 01/20/19 11:08> Subjective - Date & Time of Evaluation Date of Evaluation: 01/20/19 Time of Evaluation: 08:48 - Subjective Subjective: Patient seen and examined at bedside on rounds. Denies any complaints. No overnight events. CARSON drain of 230cc over 24 hours (bilious fluid). Denies angina, dypsnea, abdominal pain, nausea or vomiting. Tolerating PO diet. Hemodynamically stable. Objective - Vital Signs/Intake and Output Vital Signs (last 24 hours): Temp Pulse Resp BP Pulse Ox 97.6 F 66 18 170/76 H 97 01/20/19 08:00 01/20/19 08:00 01/20/19 08:00 01/20/19 08:00 01/20/19 08:00 Intake and Output: 01/20/19 01/20/19 06:59 18:59 Intake Total 2900 Output Total 830 Balance 2070 - Medications Medications: Current Medications Acetaminophen (Tylenol 325 Mg Supp) 325 mg [place] Q4 PRN PRN Reason: Pain, Mild (1-3) Amlodipine Besylate (Norvasc) 5 mg PO DAILY [facility] Last Admin: 01/19/19 10:04 Dose: 5 mg Enoxaparin Sodium (Lovenox) 30 mg SC DAILY [facility]; Protocol Last Admin: 01/19/19 10:04 Dose: 30 mg Piperacillin Sod/Tazobactam (Sod 2.25 gm/ Sodium Chloride) 100 mls @ 100 mls/hr IVPB Q6 [facility]; Protocol Last Admin: 01/20/19 04:02 Dose: 100 mls/hr Ondansetron HCl (Zofran Inj) 4 mg IVP Q4 PRN PRN Reason: Nausea/Vomiting Tramadol HCl (Ultram) 50 mg PO Q6 PRN PRN Reason: Pain, moderate (4-7) - Labs Labs: 01/20/19 05:10 01/20/19 05:10 PT 13.5 Seconds (9.8-13.1) H 01/14/19 04:25 INR 1.2 01/14/19 04:25 APTT 32.3 Seconds (25.6-37.1) 01/14/19 04:25 - Constitutional Appears: Non-toxic, No Acute Distress - Head Exam Head Exam: NORMAL INSPECTION - Eye Exam Eye Exam: Normal appearance - ENT Exam ENT Exam: Mucous Membranes Moist - Respiratory Exam Respiratory Exam: Clear to Ausculation Bilateral, NORMAL BREATHING PATTERN. absent: Accessory Muscle Use, Chest Wall Tenderness, Decreased Breath Sounds, Prolonged Expiratory Phase, Rales, Rhonchi, Wheezes, Respiratory Distress, Stridor - Cardiovascular Exam Cardiovascular Exam: REGULAR RHYTHM, +S1, +S2 - GI/Abdominal Exam GI & Abdominal Exam: Soft, Normal Bowel Sounds. absent: Distended, Firm, Guarding, Rebound Additional comments: Incisions clean, non-erythematous, CARSON drain in place with serosanguinous fluid mixed with bilious (230 cc over 24 hours). - Extremities Exam Extremities Exam: Normal Capillary Refill, Normal Inspection. absent: Calf Tenderness, Joint Swelling, Pedal Edema, Tenderness - Neurological Exam Neurological Exam: Alert, Awake, Oriented x3 - Psychiatric Exam Psychiatric exam: Normal Affect, Normal Mood - Skin Skin Exam: Dry, Intact, Normal Color, Warm Assessment and Plan - Assessment and Plan (Free Text) Assessment: 83 year old male with PMH of HTN admitted with abdominal pain admitted with acute cholelithiasis s/p Lap Cholecystectomy POD #5. Plan: Acute Cholelithiasis s/p Laproscopic Cholecystectomy - POD 5 - afebrile over night - RUQ U/S: Echogenic sludge or minimally shadowing gallstones in GB without wilber dence of acute cholecystitis. Non obstructing R renal calculi. - ABD/pelvis CT: cholelithiasis, Gallbladder wall thickening and isak- cholecystic haziness thought compatible with acute cholecystitis. Diverticulosis coli without evidence of acute diverticulitis in the sigmoid and rectosigmoid regions. 1.7 cm non-obstructing calculus in the lower right renal pole. - General surgery- Dr. Romo- reccs appreciated - C/w Zosyn 2.25gm Q6hr (Day # 9) s/p Vanco (1 dose) - blood cx no growth @ 2 days, urine cx negative - PT/OT - liquid diet CKD stage 3 acute on chronic- resolving - BUN/Cr: 13/1.7 - GFR: 47 - gentle hydration - continue to follow CMP HTN - chronic, uncontrolled - BNP 4620, trop neg - c/w Norvasc 5mg - continue to monitor Diet liquid diet DVT ppx - lovenox 30mg SC - SCD <Jacki Mayo - Last Filed: 01/20/19 13:41> Objective - Vital Signs/Intake and Output Vital Signs (last 24 hours): Temp Pulse Resp BP Pulse Ox 97.6 F 66 18 170/76 H 97 01/20/19 08:00 01/20/19 09:48 01/20/19 08:00 01/20/19 09:48 01/20/19 08:00 Intake and Output: 01/20/19 01/20/19 06:59 18:59 Intake Total 2900 Output Total 830 Balance 2070 - Medications Medications: Current Medications Acetaminophen (Tylenol 325 Mg Supp) 325 mg [place] Q4 PRN PRN Reason: Pain, Mild (1-3) Amlodipine Besylate (Norvasc) 5 mg PO DAILY [facility] Last Admin: 01/20/19 09:48 Dose: 5 mg Enoxaparin Sodium (Lovenox) 30 mg SC DAILY [facility]; Protocol Last Admin: 01/20/19 09:48 Dose: 30 mg Piperacillin Sod/Tazobactam (Sod 2.25 gm/ Sodium Chloride) 100 mls @ 100 mls/hr IVPB Q6 [facility]; Protocol Last Admin: 01/20/19 09:49 Dose: 100 mls/hr Ondansetron HCl (Zofran Inj) 4 mg IVP Q4 PRN PRN Reason: Nausea/Vomiting Tramadol HCl (Ultram) 50 mg PO Q6 PRN PRN Reason: Pain, moderate (4-7) - Labs Labs: 01/20/19 05:10 01/20/19 05:10 PT 13.5 Seconds (9.8-13.1) H 01/14/19 04:25 INR 1.2 01/14/19 04:25 APTT 32.3 Seconds (25.6-37.1) 01/14/19 04:25 Attending/Attestation - Attestation I have personally seen and examined this patient.: Yes I have fully participated in the care of the patient.: Yes I have reviewed all pertinent clinical information, including history, physical exam and plan: Yes Notes (Text): Sepsis ( POA) due to Acute Cholecystitis ( Necrotic) s/p Laparoscopic Cholecystectomy - Bilious drainage from CARSON drain 230 ml x 24 hrs - pain controlled- pain only when he gets up or takes deep breath -afebrile, LFTS normal - cont IV Zosyn - Incentive Spirometry, ambulate - tolerating Liquid diet - HIDA scan : no bile leak ZENOBIA on CKD Stage III - stable, improving Crea 1.7 today down from 2.4 - IVF hydration HTN - cont Norvasc DVT proph Lovenox
[2019-01-20] MEDS: Enoxaparin 30 mg Syringe SC SCH (09:48)
--- NOTE | 2019-01-20 09:57 | CP.PCM.PN ---
<Ian Bartlett - Last Filed: 01/20/19 10:28> Subjective - Date & Time of Evaluation Date of Evaluation: 01/20/19 Time of Evaluation: 09:55 - Subjective Subjective: Surgery Progress note- Dr. Hinton No new complaints at this time. RUQ drain in place 230cc bilious fluid/24hrs. Tolerating FLD. Denies abdominal pain. + flatus and BM. Denies fevers, chills, chest pain, shortness of breath. Objective - Vital Signs/Intake and Output Vital Signs (last 24 hours): Temp Pulse Resp BP Pulse Ox 97.6 F 66 18 170/76 H 97 01/20/19 08:00 01/20/19 09:48 01/20/19 08:00 01/20/19 09:48 01/20/19 08:00 Intake and Output: 01/20/19 01/20/19 06:59 18:59 Intake Total 2900 Output Total 830 Balance 2070 - Medications Medications: Current Medications Acetaminophen (Tylenol 325 Mg Supp) 325 mg SC Q4 PRN PRN Reason: Pain, Mild (1-3) Amlodipine Besylate (Norvasc) 5 mg PO DAILY [facility] Last Admin: 01/20/19 09:48 Dose: 5 mg Enoxaparin Sodium (Lovenox) 30 mg SC DAILY [facility]; Protocol Last Admin: 01/20/19 09:48 Dose: 30 mg Piperacillin Sod/Tazobactam (Sod 2.25 gm/ Sodium Chloride) 100 mls @ 100 mls/hr IVPB Q6 [facility]; Protocol Last Admin: 01/20/19 09:49 Dose: 100 mls/hr Ondansetron HCl (Zofran Inj) 4 mg IVP Q4 PRN PRN Reason: Nausea/Vomiting Tramadol HCl (Ultram) 50 mg PO Q6 PRN PRN Reason: Pain, moderate (4-7) - Labs Labs: 01/20/19 05:10 01/20/19 05:10 PT 13.5 Seconds (9.8-13.1) H 01/14/19 04:25 INR 1.2 01/14/19 04:25 APTT 32.3 Seconds (25.6-37.1) 01/14/19 04:25 - Constitutional Appears: Non-toxic, No Acute Distress - Head Exam Head Exam: ATRAUMATIC - Eye Exam Eye Exam: EOMI. absent: Scleral icterus - ENT Exam ENT Exam: Mucous Membranes Moist - Respiratory Exam Respiratory Exam: NORMAL BREATHING PATTERN. absent: Accessory Muscle Use, Respiratory Distress - Cardiovascular Exam Cardiovascular Exam: REGULAR RHYTHM. absent: Bradycardia, Tachycardia - GI/Abdominal Exam GI & Abdominal Exam: Soft. absent: Distended, Firm, Guarding, Rigid, Tenderness Additional comments: RUQ drain 230cc bilious fluid/ 24 hours. - Neurological Exam Neurological Exam: Alert, Awake, Oriented x3 - Psychiatric Exam Psychiatric exam: Normal Affect - Skin Skin Exam: Intact, Warm Assessment and Plan - Assessment and Plan (Free Text) Assessment: 83M s/p Lap Genoveva POD#5, now w/ continued bilious drainage from Vish Plan: - continue diet as tolerated - f/u AM labs- LFTs and T.Bili remain normal - Monitor Drain output - c/s GI; all recs appreciated - further recs per Surgical attending PGY1 <Zach Hinton - Last Filed: 01/20/19 14:33> Objective - Vital Signs/Intake and Output Vital Signs (last 24 hours): Temp Pulse Resp BP Pulse Ox 98.3 F 66 18 170/76 H 97 01/20/19 09:00 01/20/19 09:48 01/20/19 09:00 01/20/19 09:48 01/20/19 09:00 Intake and Output: 01/20/19 01/20/19 06:59 18:59 Intake Total 2900 Output Total 830 Balance 2070 - Medications Medications: Current Medications Acetaminophen (Tylenol 325 Mg Supp) 325 mg SC Q4 PRN PRN Reason: Pain, Mild (1-3) Amlodipine Besylate (Norvasc) 10 mg PO DAILY [facility] Enoxaparin Sodium (Lovenox) 30 mg SC DAILY [facility]; Protocol Last Admin: 01/20/19 09:48 Dose: 30 mg Piperacillin Sod/Tazobactam (Sod 2.25 gm/ Sodium Chloride) 100 mls @ 100 mls/hr IVPB Q6 [facility]; Protocol Last Admin: 01/20/19 09:49 Dose: 100 mls/hr Ondansetron HCl (Zofran Inj) 4 mg IVP Q4 PRN PRN Reason: Nausea/Vomiting Tramadol HCl (Ultram) 50 mg PO Q6 PRN PRN Reason: Pain, moderate (4-7) - Labs Labs: 01/20/19 05:10 01/20/19 05:10 PT 13.5 Seconds (9.8-13.1) H 01/14/19 04:25 INR 1.2 01/14/19 04:25 APTT 32.3 Seconds (25.6-37.1) 01/14/19 04:25 Assessment and Plan - Assessment and Plan (Free Text) Plan: seen at bedside, resting comfortably. Pt tolerating liquid diet. Reports discomfort to RUQ. Pt would like to go home. CARSON 230cc biluous abd: soft, ND, tenderness to RUQ, no peritoneal signs, drain in place with bilious drainage -cont liquid diet -monitor drain output -npo after midnight - in case GI would like to proceed with ERCP -
[2019-01-20] MEDS: Lactated Ringer's 1,000 ML IV SCH (21:44)
[2019-01-21 05:29] LABS: HEMOGLOBIN 10.9 g/dL (12.0-18.0); MEAN CELL VOLUME 89.6 fl (80.0-94.0); MEAN CORPUSCULAR HEMOGLOBIN 29.9 pg (27.0-31.0); MEAN CORPUSCULAR HGB CONC 33.3 g/dL (33.0-37.0); RBC 3.64 Mil/uL (4.40-5.90); RED CELL DISTRIBUTION WIDTH 14.4 % (11.5-14.5); WHITE BLOOD COUNT 7.9 K/uL (4.8-10.8)
[2019-01-21 05:35] LABS: ALB/GLOB RATIO 0.9 (1.0-2.1); ALBUMIN 3.2 g/dL (3.5-5.0); CALCIUM 8.3 mg/dL (8.4-10.2)
[2019-01-21] MEDS ORDERED: Potassium Chloride 20 mEq ER Tab PO ONE (06:17)
[2019-01-21] MEDS ORDERED: Potassium Chloride 20 mEq 100 ML IVPB SCH (08:00)
--- NOTE | 2019-01-21 08:00 | CP.PCM.PN ---
Subjective - Date & Time of Evaluation Date of Evaluation: 01/21/19 Time of Evaluation: 07:04 - Subjective Subjective: General Surgery: Dr. Romo Patient seen and examined this am at bedside. States he is feeling well. Denies f/c, n/v, abdominal pain. sawyer with 135 cc x24 hrs bilious. +BM and flatus. Objective - Vital Signs/Intake and Output Vital Signs (last 24 hours): Temp Pulse Resp BP Pulse Ox 98.1 F 67 20 148/79 97 01/21/19 04:48 01/21/19 04:48 01/21/19 04:48 01/21/19 06:18 01/21/19 04:48 Intake and Output: 01/21/19 01/21/19 06:59 18:59 Intake Total 1840 Output Total 75 Balance 1765 - Medications Medications: Current Medications Acetaminophen (Tylenol 325 Mg Supp) 325 mg [place] Q4 PRN PRN Reason: Pain, Mild (1-3) Amlodipine Besylate (Norvasc) 10 mg PO DAILY [facility] Enoxaparin Sodium (Lovenox) 30 mg SC DAILY [facility]; Protocol Last Admin: 01/20/19 09:48 Dose: 30 mg Piperacillin Sod/Tazobactam (Sod 2.25 gm/ Sodium Chloride) 100 mls @ 100 mls/hr IVPB Q6 [facility]; Protocol Last Admin: 01/21/19 03:43 Dose: 100 mls/hr Lactated Ringer's (Lactated Ringer's) 1,000 mls @ 80 mls/hr IV .[id number] [facility] Last Admin: 01/20/19 21:44 Dose: 80 mls/hr Ondansetron HCl (Zofran Inj) 4 mg IVP Q4 PRN PRN Reason: Nausea/Vomiting Tramadol HCl (Ultram) 50 mg PO Q6 PRN PRN Reason: Pain, moderate (4-7) Last Admin: 01/20/19 21:44 Dose: 50 mg - Labs Labs: 01/21/19 05:00 01/21/19 05:00 PT 13.5 Seconds (9.8-13.1) H 01/14/19 04:25 INR 1.2 01/14/19 04:25 APTT 32.3 Seconds (25.6-37.1) 01/14/19 04:25 - Constitutional Appears: Non-toxic, No Acute Distress, Cachectic, Chronically Ill - Head Exam Head Exam: ATRAUMATIC, NORMOCEPHALIC - Eye Exam Eye Exam: EOMI - ENT Exam ENT Exam: Mucous Membranes Moist - Respiratory Exam Respiratory Exam: NORMAL BREATHING PATTERN - Cardiovascular Exam Cardiovascular Exam: REGULAR RHYTHM - GI/Abdominal Exam GI & Abdominal Exam: Soft. absent: Guarding, Tenderness Additional comments: incisions cdi, sawyer 135cc x 24hrs bilious - Neurological Exam Neurological Exam: Alert, Awake, Oriented x3 - Psychiatric Exam Psychiatric exam: Normal Affect, Normal Mood - Skin Skin Exam: Dry, Intact, Normal Color, Warm Additional comments: incisions cdi Assessment and Plan - Assessment and Plan (Free Text) Assessment: 83M with acute cholecystitis s/p laparoscopic cholecystectomy POD 6 Plan: - pt to go for ERCP today - continue IVF - monitor drain outputs - encourage OOBTC and PT - encourage IS use - diet as per GI recs following ERCP - further recs per Dr. Jamaal Barnes, PGY 1
--- NOTE | 2019-01-21 08:45 | CP.PCM.PN ---
<Rochelle Larkin - Last Filed: 01/21/19 10:24> Subjective - Date & Time of Evaluation Date of Evaluation: 01/21/19 Time of Evaluation: 08:45 - Subjective Subjective: Patient seen and examined on rounds. Reports he has mild right upper quadrant pain when he breaths in deeply. Denies any nausea, vomiting, diarrhea, chest pain or shortness of breath. CARSON drain over 24 hrs drained 135 cc sanguineous. Objective - Vital Signs/Intake and Output Vital Signs (last 24 hours): Temp Pulse Resp BP Pulse Ox 98.5 F 61 20 162/74 H 95 01/21/19 08:12 01/21/19 08:12 01/21/19 08:12 01/21/19 08:12 01/21/19 08:12 Intake and Output: 01/21/19 01/21/19 06:59 18:59 Intake Total 1840 Output Total 75 Balance 1765 - Medications Medications: Current Medications Acetaminophen (Tylenol 325 Mg Supp) 325 mg [place] Q4 PRN PRN Reason: Pain, Mild (1-3) Amlodipine Besylate (Norvasc) 10 mg PO DAILY [facility] Enoxaparin Sodium (Lovenox) 30 mg SC DAILY [facility]; Protocol Last Admin: 01/20/19 09:48 Dose: 30 mg Piperacillin Sod/Tazobactam (Sod 2.25 gm/ Sodium Chloride) 100 mls @ 100 mls/hr IVPB Q6 [facility]; Protocol Last Admin: 01/21/19 03:43 Dose: 100 mls/hr Lactated Ringer's (Lactated Ringer's) 1,000 mls @ 80 mls/hr IV .[id number] [facility] Last Admin: 01/20/19 21:44 Dose: 80 mls/hr Ondansetron HCl (Zofran Inj) 4 mg IVP Q4 PRN PRN Reason: Nausea/Vomiting Tramadol HCl (Ultram) 50 mg PO Q6 PRN PRN Reason: Pain, moderate (4-7) Last Admin: 01/20/19 21:44 Dose: 50 mg - Labs Labs: 01/21/19 05:00 01/21/19 05:00 PT 13.5 Seconds (9.8-13.1) H 01/14/19 04:25 INR 1.2 01/14/19 04:25 APTT 32.3 Seconds (25.6-37.1) 01/14/19 04:25 - Constitutional Appears: Well, Non-toxic, No Acute Distress - Eye Exam Eye Exam: Normal appearance - ENT Exam ENT Exam: Mucous Membranes Moist - Respiratory Exam Respiratory Exam: Clear to Ausculation Bilateral, NORMAL BREATHING PATTERN. absent: Accessory Muscle Use, Chest Wall Tenderness, Decreased Breath Sounds, Prolonged Expiratory Phase, Rales, Rhonchi, Wheezes, Respiratory Distress, Stridor - Cardiovascular Exam Cardiovascular Exam: +S1, +S2 - GI/Abdominal Exam GI & Abdominal Exam: Soft, Normal Bowel Sounds. absent: Firm, Guarding, Rigid, Tenderness, Rebound Additional comments: Clean incision sites. Non-erythematous, CARSON drain in place with <5cc of sanguineous mixed with bile fluid. - Extremities Exam Extremities Exam: Normal Inspection. absent: Calf Tenderness, Joint Swelling, Pedal Edema, Tenderness - Neurological Exam Neurological Exam: Alert, Awake, Oriented x3 - Psychiatric Exam Psychiatric exam: Normal Affect, Normal Mood - Skin Skin Exam: Dry, Intact, Normal Color, Warm Assessment and Plan - Assessment and Plan (Free Text) Assessment: 83 year old male with PMH of HTN admitted with abdominal pain admitted with acute cholelithiasis s/p Lap Cholecystectomy POD #6, decreasing CARSON drainage ov er the weekend. Plan: Acute Cholelithiasis s/p Laproscopic Cholecystectomy - POD 6 - afebrile over night - RUQ U/S: Echogenic sludge or minimally shadowing gallstones in GB without evidence of acute cholecystitis. Non obstructing R renal calculi. - ABD/pelvis CT: cholelithiasis, Gallbladder wall thickening and isak- cholecystic haziness thought compatible with acute cholecystitis. Diverticulosis coli without evidence of acute diverticulitis in the sigmoid and rectosigmoid regions. 1.7 cm non-obstructing calculus in the lower right renal pole. - General surgery- Dr. Romo- [facility] appreciated: HIDA scan and GI consult - C/w Zosyn 2.25gm Q6hr (Day #6 s/p Vanco (1 dose) - blood cx no growth @ 2 days, urine cx negative - PT/OT - NPO CKD stage 3 acute on chronic- resolving - BUN/Cr: 13/1.7 - GFR: 47 - gentle hydration - continue to follow CMP HTN - chronic, uncontrolled - BNP 4620, trop neg - Added Norvasc 5mg - continue to monitor Hypokalemia -replace with KCL po 20 mEQ Diet NPO at this time DVT ppx - lovenox 30mg SC - SCD <Jacki Mayo - Last Filed: 01/21/19 15:00> Objective - Vital Signs/Intake and Output Vital Signs (last 24 hours): Temp Pulse Resp BP Pulse Ox 98 F 67 20 144/53 L 96 01/21/19 12:11 01/21/19 12:11 01/21/19 12:11 01/21/19 12:11 01/21/19 12:11 Intake and Output: 01/21/19 01/21/19 06:59 18:59 Intake Total 1840 Output Total 75 Balance 1765 - Medications Medications: Current Medications Acetaminophen (Tylenol 325 Mg Supp) 325 mg [place] Q4 PRN PRN Reason: Pain, Mild (1-3) Amlodipine Besylate (Norvasc) 10 mg PO DAILY [facility] Last Admin: 01/21/19 09:19 Dose: 10 mg Enoxaparin Sodium (Lovenox) 30 mg SC DAILY [facility]; Protocol Last Admin: 01/20/19 09:48 Dose: 30 mg Piperacillin Sod/Tazobactam (Sod 2.25 gm/ Sodium Chloride) 100 mls @ 100 mls/hr IVPB Q6 [facility]; Protocol Last Admin: 01/21/19 09:19 Dose: 100 mls/hr Lactated Ringer's (Lactated Ringer's) 1,000 mls @ 80 mls/hr IV .[id number] [facility] Last Admin: 01/20/19 21:44 Dose: 80 mls/hr Ondansetron HCl (Zofran Inj) 4 mg IVP Q4 PRN PRN Reason: Nausea/Vomiting Tramadol HCl (Ultram) 50 mg PO Q6 PRN PRN Reason: Pain, moderate (4-7) Last Admin: 01/20/19 21:44 Dose: 50 mg - Labs Labs: 01/21/19 05:00 01/21/19 05:00 PT 13.5 Seconds (9.8-13.1) H 01/14/19 04:25 INR 1.2 01/14/19 04:25 APTT 32.3 Seconds (25.6-37.1) 01/14/19 04:25 Attending/Attestation - Attestation I have personally seen and examined this patient.: Yes I have fully participated in the care of the patient.: Yes I have reviewed all pertinent clinical information, including history, physical exam and plan: Yes Notes (Text): Sepsis ( POA) due to Acute Cholecystitis ( Necrotic) s/p Laparoscopic Cholecystectomy - drainage from CARSON drain no longer bilious , approx 75 ml last 24hrs - pain controlled- pain only when he gets up or takes deep breath -afebrile, LFTS normal - cont IV Zosyn - Incentive Spirometry, ambulate - tolerating Liquid diet - HIDA scan : no bile leak - Surgery rec ERCP, await GI recommendation ZENOBIA on CKD Stage III - stable, improving Crea 1.7 down from 2.4 - IVF hydration HTN - cont Norvasc DVT proph Lovenox
--- NOTE | 2019-01-21 10:07 | CP.PCM.PN ---
Subjective - Date & Time of Evaluation Date of Evaluation: 01/21/19 Time of Evaluation: 10:04 - Subjective Subjective: General Surgery Pt seen and examined this AM with at bedside. He is pending ERCP today. He c/o pain to the RUQ when he takes a deep breath. Currently NPO. Labs and vitals noted. Drain 135ml x 24 hours PE Gen: Pt laying in bed in NAD Skin: warm and dry Cardio: s1s2 RRR Lungs: CTA bilaterally Abd: Soft, (-) distended, (+) bile in drain, (-) tenderness Extr: (-) calf swelling bilaterally. A/P 83M with acute cholecystitis s/p laparoscopic cholecystectomy POD 6 with a bile leak Plan: Pending ERCP today Monitor drain outputs Encourage ambulation Encourage IS Advance diet as per GI. Objective - Vital Signs/Intake and Output Vital Signs (last 24 hours): Temp Pulse Resp BP Pulse Ox 98.5 F 61 20 162/74 H 95 01/21/19 08:12 01/21/19 08:12 01/21/19 08:12 01/21/19 08:12 01/21/19 08:12 Intake and Output: 01/21/19 01/21/19 06:59 18:59 Intake Total 1840 Output Total 75 Balance 1765 - Medications Medications: Current Medications Acetaminophen (Tylenol 325 Mg Supp) 325 mg [place] Q4 PRN PRN Reason: Pain, Mild (1-3) Amlodipine Besylate (Norvasc) 10 mg PO DAILY [facility] Last Admin: 01/21/19 09:19 Dose: 10 mg Enoxaparin Sodium (Lovenox) 30 mg SC DAILY [facility]; Protocol Last Admin: 01/20/19 09:48 Dose: 30 mg Piperacillin Sod/Tazobactam (Sod 2.25 gm/ Sodium Chloride) 100 mls @ 100 mls/hr IVPB Q6 [facility]; Protocol Last Admin: 01/21/19 09:19 Dose: 100 mls/hr Lactated Ringer's (Lactated Ringer's) 1,000 mls @ 80 mls/hr IV .[id number] [facility] Last Admin: 01/20/19 21:44 Dose: 80 mls/hr Ondansetron HCl (Zofran Inj) 4 mg IVP Q4 PRN PRN Reason: Nausea/Vomiting Tramadol HCl (Ultram) 50 mg PO Q6 PRN PRN Reason: Pain, moderate (4-7) Last Admin: 01/20/19 21:44 Dose: 50 mg - Labs Labs: 01/21/19 05:00 01/21/19 05:00 PT 13.5 Seconds (9.8-13.1) H 01/14/19 04:25 INR 1.2 01/14/19 04:25 APTT 32.3 Seconds (25.6-37.1) 01/14/19 04:25
[2019-01-21] MEDS: Lactated Ringer's 1,000 ML IV SCH (23:55)
[2019-01-22 05:36] LABS: HEMOGLOBIN 10.2 g/dL (12.0-18.0); MEAN CELL VOLUME 89.2 fl (80.0-94.0); MEAN CORPUSCULAR HEMOGLOBIN 29.6 pg (27.0-31.0); MEAN CORPUSCULAR HGB CONC 33.2 g/dL (33.0-37.0); RBC 3.46 Mil/uL (4.40-5.90); RED CELL DISTRIBUTION WIDTH 14.1 % (11.5-14.5); WHITE BLOOD COUNT 8.8 K/uL (4.8-10.8)
[2019-01-22 05:57] LABS: CALCIUM 8.4 mg/dL (8.4-10.2)
[2019-01-22] MEDS ORDERED: Iohexol 240 (50 ml) ONE (07:41)
[2019-01-22] MEDS ORDERED: Glucagon Recombinant 1 mg Inj ONE (07:41)
--- NOTE | 2019-01-22 07:54 | CP.PCM.PN ---
Subjective - Date & Time of Evaluation Date of Evaluation: 01/22/19 Time of Evaluation: 07:52 - Subjective Subjective: General Surgery Pt seen and examined this AM at bedside. He is pending ERCP today. Currently NPO. Objective - Vital Signs/Intake and Output Vital Signs (last 24 hours): Temp Pulse Resp BP Pulse Ox 98.6 F 63 20 124/68 97 01/22/19 04:46 01/22/19 04:46 01/22/19 04:46 01/22/19 04:46 01/22/19 04:46 - Medications Medications: Current Medications Acetaminophen (Tylenol 325 Mg Supp) [address] Q4 PRN PRN Reason: Pain, Mild (1-3) Amlodipine Besylate (Norvasc) 10 mg PO DAILY [facility] Last Admin: 01/21/19 09:19 Dose: 10 mg Piperacillin Sod/Tazobactam (Sod 2.25 gm/ Sodium Chloride) 100 mls @ 100 mls/hr IVPB Q6 [facility]; Protocol Last Admin: 01/22/19 04:18 Dose: 100 mls/hr Lactated Ringer's (Lactated Ringer's) 1,000 mls @ 80 mls/hr IV .[id number] [facility] Last Admin: 01/21/19 23:55 Dose: 80 mls/hr Indomethacin (Indocin Suppository) [address] ONCE ONE Stop: 01/22/19 11:01 Ondansetron HCl (Zofran Inj) 4 mg IVP Q4 PRN PRN Reason: Nausea/Vomiting Tramadol HCl (Ultram) 50 mg PO Q6 PRN PRN Reason: Pain, moderate (4-7) Last Admin: 01/20/19 21:44 Dose: 50 mg - Labs Labs: 01/22/19 04:15 01/22/19 04:15 PT 13.5 Seconds (9.8-13.1) H 01/14/19 04:25 INR 1.2 01/14/19 04:25 APTT 32.3 Seconds (25.6-37.1) 01/14/19 04:25 - Constitutional Appears: Well, Non-toxic - Head Exam Head Exam: ATRAUMATIC, NORMOCEPHALIC - Eye Exam Eye Exam: Normal appearance - ENT Exam ENT Exam: Mucous Membranes Moist - Cardiovascular Exam Cardiovascular Exam: REGULAR RHYTHM, +S1, +S2 - GI/Abdominal Exam GI & Abdominal Exam: Soft. absent: Tenderness Additional comments: bile noted in the drain - Extremities Exam Extremities Exam: Normal Inspection. absent: Calf Tenderness - Neurological Exam Neurological Exam: Alert, Awake, Oriented x3 - Psychiatric Exam Psychiatric exam: Normal Mood Assessment and Plan - Assessment and Plan (Free Text) Assessment: 83M with acute cholecystitis s/p laparoscopic cholecystectomy POD 7 with a bile leak Plan: Pending ERCP today at 11:00 am Monitor drain outputs Encourage ambulation Encourage IS NPO until procedure; Advance diet as per GI post procedure
--- NOTE | 2019-01-22 09:54 | CP.PCM.PN ---
<Rochelle Larkin - Last Filed: 01/22/19 11:33> Subjective - Date & Time of Evaluation Date of Evaluation: 01/22/19 Time of Evaluation: 09:53 - Subjective Subjective: Patient seen and examined at bedside. Reports mild RUQ pain. CARSON Drain with 5cc of bilious fluid. No acute overnight events. Hemodynamically stable. Denies ang fabienne, dypsnea, nausea, vomiting, urinary symptoms, diarrhea. Patient for ERCP today. Objective - Vital Signs/Intake and Output Vital Signs (last 24 hours): Temp Pulse Resp BP Pulse Ox 97.4 F L 80 20 134/75 94 L 01/22/19 08:19 01/22/19 08:19 01/22/19 08:19 01/22/19 08:19 01/22/19 08:19 - Medications Medications: Current Medications Acetaminophen (Tylenol 325 Mg Supp) 325 mg [place] Q4 PRN PRN Reason: Pain, Mild (1-3) Amlodipine Besylate (Norvasc) 10 mg PO DAILY [facility] Last Admin: 01/21/19 09:19 Dose: 10 mg Piperacillin Sod/Tazobactam (Sod 2.25 gm/ Sodium Chloride) 100 mls @ 100 mls/hr IVPB Q6 [facility]; Protocol Last Admin: 01/22/19 04:18 Dose: 100 mls/hr Lactated Ringer's (Lactated Ringer's) 1,000 mls @ 80 mls/hr IV .[id number] [facility] Last Admin: 01/21/19 23:55 Dose: 80 mls/hr Indomethacin (Indocin Suppository) 100 mg [place] ONCE ONE Stop: 01/22/19 11:01 Ondansetron HCl (Zofran Inj) 4 mg IVP Q4 PRN PRN Reason: Nausea/Vomiting Tramadol HCl (Ultram) 50 mg PO Q6 PRN PRN Reason: Pain, moderate (4-7) Last Admin: 01/20/19 21:44 Dose: 50 mg - Labs Labs: 01/22/19 04:15 01/22/19 04:15 PT 13.5 Seconds (9.8-13.1) H 01/14/19 04:25 INR 1.2 01/14/19 04:25 APTT 32.3 Seconds (25.6-37.1) 01/14/19 04:25 - Constitutional Appears: Non-toxic, No Acute Distress - ENT Exam ENT Exam: Mucous Membranes Moist - Respiratory Exam Respiratory Exam: Clear to Ausculation Bilateral, NORMAL BREATHING PATTERN. absent: Respiratory Distress, Stridor - GI/Abdominal Exam GI & Abdominal Exam: Soft, Tenderness (RUQ mild tenderness on palpation ), Normal Bowel Sounds. absent: Distended, Firm, Guarding, Rigid, Mass, Rebound - Back Exam Back Exam: NORMAL INSPECTION - Neurological Exam Neurological Exam: Alert, Awake, Oriented x3 - Psychiatric Exam Psychiatric exam: Normal Affect, Normal Mood - Skin Skin Exam: Dry, Intact, Normal Color, Warm Assessment and Plan - Assessment and Plan (Free Text) Assessment: 83 year old male with PMH of HTN admitted with abdominal pain admitted with acute cholelithiasis s/p Lap Cholecystectomy POD #7 Plan: Acute Cholelithiasis s/p Laproscopic Cholecystectomy - POD 7 - RUQ U/S: Echogenic sludge or minimally shadowing gallstones in GB without evidence of acute cholecystitis. Non obstructing R renal calculi. - ABD/pelvis CT: cholelithiasis, Gallbladder wall thickening and isak- cholecystic haziness thought compatible with acute cholecystitis. Diverticulosis coli without evidence of acute diverticulitis in the sigmoid and rectosigmoid regions. 1.7 cm non-obstructing calculus in the lower right renal pole. - General surgery- Dr. Romo- reccs appreciated - C/w Zosyn 2.25gm Q6hr (Day #7 s/p Vanco (1 dose) - blood cx no growth @ 2 days, urine cx negative - PT/OT - NPO for ERCP today with GI CKD stage 3 acute on chronic- resolving - BUN/Cr: 17/1.7 - GFR: 47 - gentle hydration - continue to follow CMP HTN - chronic, uncontrolled - BNP 4620, trop neg - Added Norvasc 5mg - continue to monitor Hypokalemia -resolved. Diet NPO at this time for ERCP DVT ppx - lovenox 30mg SC - SCD <Jacki Mayo - Last Filed: 01/22/19 16:25> Objective - Vital Signs/Intake and Output Vital Signs (last 24 hours): Temp Pulse Resp BP Pulse Ox 98.0 F 62 16 146/80 97 01/22/19 15:55 01/22/19 15:55 01/22/19 15:55 01/22/19 15:55 01/22/19 15:55 Intake and Output: 01/22/19 01/22/19 06:59 18:59 Intake Total 200 Balance 200 - Medications Medications: Current Medications Acetaminophen (Tylenol 325 Mg Supp) 325 mg [place] Q4 PRN PRN Reason: Pain, Mild (1-3) Amlodipine Besylate (Norvasc) 10 mg PO DAILY [facility] Last Admin: 01/22/19 09:55 Dose: Not Given Piperacillin Sod/Tazobactam (Sod 2.25 gm/ Sodium Chloride) 100 mls @ 100 mls/hr IVPB Q6 [facility]; Protocol Last Admin: 01/22/19 10:20 Dose: 100 mls/hr Lactated Ringer's (Lactated Ringer's) 1,000 mls @ 80 mls/hr IV .[id number] [facility] Last Admin: 01/22/19 13:42 Dose: 80 mls/hr Ondansetron HCl (Zofran Inj) 4 mg IVP Q4 PRN PRN Reason: Nausea/Vomiting Tramadol HCl (Ultram) 50 mg PO Q6 PRN PRN Reason: Pain, moderate (4-7) Last Admin: 01/20/19 21:44 Dose: 50 mg - Labs Labs: 01/22/19 04:15 01/22/19 04:15 PT 13.5 Seconds (9.8-13.1) H 01/14/19 04:25 INR 1.2 01/14/19 04:25 APTT 32.3 Seconds (25.6-37.1) 01/14/19 04:25 Attending/Attestation - Attestation I have personally seen and examined this patient.: Yes I have fully participated in the care of the patient.: Yes I have reviewed all pertinent clinical information, including history, physical exam and plan: Yes Notes (Text): Sepsis ( POA) due to Acute Cholecystitis ( Necrotic) s/p Laparoscopic Cholecystectomy - drainage from CARSON drain 150ml - GI consulted - pain controlled- pain only when he gets up or takes deep breath -afebrile, LFTS normal - cont IV Zosyn - Incentive Spirometry, ambulate - HIDA scan : no bile leak Choledocholithiasis Bile LEak s/p ERCP with removal of stones/sphincterotomy and Stent placement - done by Dr Vogel today ZENOBIA on CKD Stage III - stable, improving Crea 1.7 down from 2.4 - IVF hydration HTN - cont Norvasc DVT proph Lovenox
[2019-01-22] MEDS ORDERED: Lactated Ringer's 1,000 ML IV ONE (10:46)
[2019-01-22] MEDS ORDERED: Indomethacin 50 MG Suppository PR ONE ×3 (10:49→11:15)
[2019-01-22] MEDS ORDERED: Etomidate 20 mg/10ml Inj IV ONE (11:15)
[2019-01-22] MEDS ORDERED: Lactated Ringer's 500 ML IV ONE (11:15)
[2019-01-22] MEDS ORDERED: Propofol 10 mg/ml Inj (20 ML) ONE (11:16)
[2019-01-22] MEDS ORDERED: Midazolam 2 MG/2 ML VIAL ONE (11:16)
[2019-01-22] MEDS: Lactated Ringer's 1,000 ML IV SCH (13:42)
[2019-01-23] MEDS: Lactated Ringer's 1,000 ML IV SCH ×3 (01:00→21:24)
[2019-01-23 06:49] LABS: HEMOGLOBIN 10.6 g/dL (12.0-18.0); MEAN CORPUSCULAR HEMOGLOBIN 30.2 pg (27.0-31.0); MEAN CORPUSCULAR HGB CONC 33.5 g/dL (33.0-37.0); RBC 3.52 Mil/uL (4.40-5.90); RED CELL DISTRIBUTION WIDTH 14.1 % (11.5-14.5); WHITE BLOOD COUNT 7.1 K/uL (4.8-10.8)
[2019-01-23 07:08] LABS: ALB/GLOB RATIO 0.9 (1.0-2.1); ALBUMIN 2.8 g/dL (3.5-5.0); CALCIUM 8.2 mg/dL (8.4-10.2)
--- NOTE | 2019-01-23 11:08 | CP.PCM.PN ---
Subjective - Date & Time of Evaluation Date of Evaluation: 01/23/19 Time of Evaluation: 11:00 - Subjective Subjective: Patient was seen and examined at the bedside. Denies any abdominal pain. S/P ERCP with stent placement yesterday. Tolerating clear liquid diet. Objective - Vital Signs/Intake and Output Vital Signs (last 24 hours): Temp Pulse Resp BP Pulse Ox 97.6 F 72 20 154/74 H 96 01/23/19 08:27 01/23/19 09:12 01/23/19 08:27 01/23/19 09:12 01/23/19 08:27 Intake and Output: 01/23/19 01/23/19 06:59 18:59 Output Total 70 Balance -70 - Medications Medications: Current Medications Acetaminophen (Tylenol 325 Mg Supp) 325 mg TN Q4 PRN PRN Reason: Pain, Mild (1-3) Amlodipine Besylate (Norvasc) 10 mg PO DAILY [facility] Last Admin: 01/23/19 09:12 Dose: 10 mg Piperacillin Sod/Tazobactam (Sod 2.25 gm/ Sodium Chloride) 100 mls @ 100 mls/hr IVPB Q6 [facility]; Protocol Last Admin: 01/23/19 09:12 Dose: 100 mls/hr Lactated Ringer's (Lactated Ringer's) 1,000 mls @ 80 mls/hr IV .[id number] [facility] Last Admin: 01/23/19 01:00 Dose: Not Given Ondansetron HCl (Zofran Inj) 4 mg IVP Q4 PRN PRN Reason: Nausea/Vomiting Tramadol HCl (Ultram) 50 mg PO Q6 PRN PRN Reason: Pain, moderate (4-7) Last Admin: 01/20/19 21:44 Dose: 50 mg - Labs Labs: 01/23/19 06:15 01/23/19 06:15 PT 13.5 Seconds (9.8-13.1) H 01/14/19 04:25 INR 1.2 01/14/19 04:25 APTT 32.3 Seconds (25.6-37.1) 01/14/19 04:25 - Constitutional Appears: Well, Non-toxic, No Acute Distress - Head Exam Head Exam: ATRAUMATIC, NORMAL INSPECTION, NORMOCEPHALIC - Eye Exam Eye Exam: EOMI, Normal appearance, PERRL Pupil Exam: NORMAL ACCOMODATION, PERRL - ENT Exam ENT Exam: Mucous Membranes Moist, Normal Exam - Neck Exam Neck Exam: Full ROM, Normal Inspection - Respiratory Exam Respiratory Exam: Clear to Ausculation Bilateral, NORMAL BREATHING PATTERN - Cardiovascular Exam Cardiovascular Exam: REGULAR RHYTHM, +S1, +S2 - GI/Abdominal Exam GI & Abdominal Exam: Soft, Normal Bowel Sounds Additional comments: NT, ND, no rebound, no guarding, incisions clean, no erythema, no drainage, dermobond in place, Vish drain in place with bilious drainage - Rectal Exam Rectal Exam: Deferred - Extremities Exam Extremities Exam: Full ROM, Normal Inspection - Back Exam Back Exam: NORMAL INSPECTION - Neurological Exam Neurological Exam: Alert, Awake - Psychiatric Exam Psychiatric exam: Normal Affect, Normal Mood - Skin Skin Exam: Dry, Intact, Normal Color, Warm Assessment and Plan - Assessment and Plan (Free Text) Assessment: 83 y.o. s/p laparoscopic cholecystectomy for gangrenous cholecystitis with bile leak s/p ERCP and stent placement yesterday Plan: - Start low fat diet - Pain control - Insentive spirometry - Continue antibiotics - DVT ppx - Out of bed - Physical therapy - GI follow up - Repeat labs in am - Will follow
--- NOTE | 2019-01-23 17:52 | CP.PCM.PN ---
Subjective - Date & Time of Evaluation Date of Evaluation: 01/23/19 Time of Evaluation: 17:52 - Subjective Subjective: Patient seen and examined at bedside. Reports mild RUQ pain. CARSON Drain with bilious fluid, S/P ERCP with stent placement yesterday. Tolerating clear liquid diet. No acute overnight events. Hemodynamically stable. Denies angina, dypsnea, nausea, vomiting, urinary symptoms, diarrhea. Wants to be discharged. Objective - Vital Signs/Intake and Output Vital Signs (last 24 hours): Temp Pulse Resp BP Pulse Ox 97.4 F L 68 20 147/71 96 01/23/19 16:05 01/23/19 16:05 01/23/19 16:05 01/23/19 16:05 01/23/19 16:05 Intake and Output: 01/23/19 01/23/19 06:59 18:59 Output Total 70 Balance -70 - Medications Medications: Current Medications Acetaminophen (Tylenol 325 Mg Supp) 325 mg NV Q4 PRN PRN Reason: Pain, Mild (1-3) Amlodipine Besylate (Norvasc) 10 mg PO DAILY [facility] Last Admin: 01/23/19 09:12 Dose: 10 mg Piperacillin Sod/Tazobactam (Sod 2.25 gm/ Sodium Chloride) 100 mls @ 100 mls/hr IVPB Q6 [facility]; Protocol Last Admin: 01/23/19 16:52 Dose: 100 mls/hr Lactated Ringer's (Lactated Ringer's) 1,000 mls @ 80 mls/hr IV .[id number] [facility] Last Admin: 01/23/19 12:55 Dose: Not Given Ondansetron HCl (Zofran Inj) 4 mg IVP Q4 PRN PRN Reason: Nausea/Vomiting Tramadol HCl (Ultram) 50 mg PO Q6 PRN PRN Reason: Pain, moderate (4-7) Last Admin: 01/20/19 21:44 Dose: 50 mg - Labs Labs: 01/23/19 06:15 01/23/19 06:15 PT 13.5 Seconds (9.8-13.1) H 01/14/19 04:25 INR 1.2 01/14/19 04:25 APTT 32.3 Seconds (25.6-37.1) 01/14/19 04:25 - Constitutional Appears: Non-toxic - Head Exam Head Exam: NORMAL INSPECTION - Eye Exam Eye Exam: Normal appearance - ENT Exam ENT Exam: Mucous Membranes Moist - Respiratory Exam Respiratory Exam: NORMAL BREATHING PATTERN. absent: Respiratory Distress - Cardiovascular Exam Cardiovascular Exam: REGULAR RHYTHM - GI/Abdominal Exam Additional comments: drain in place, tenderness to RUQ - Neurological Exam Neurological Exam: Alert, Awake, Oriented x3 - Psychiatric Exam Psychiatric exam: Normal Affect, Normal Mood - Skin Skin Exam: Normal Color, Warm Assessment and Plan - Assessment and Plan (Free Text) Assessment: 83 year old male with PMH of HTN admitted with abdominal pain admitted with acute cholelithiasis s/p Lap Cholecystectomy POD #8 Plan: Acute Cholelithiasis s/p Laproscopic Cholecystectomy - POD 8 - RUQ U/S: Echogenic sludge or minimally shadowing gallstones in GB without evidence of acute cholecystitis. Non obstructing R renal calculi. - ABD/pelvis CT: cholelithiasis, Gallbladder wall thickening and isak- cholecystic haziness thought compatible with acute cholecystitis. Diverticulosis coli without evidence of acute diverticulitis in the sigmoid and rectosigmoid regions. 1.7 cm non-obstructing calculus in the lower right renal pole. - General surgery- Dr. Romo- reccs appreciated - C/w Zosyn 2.25gm Q6hr (Day #8 s/p Vanco (1 dose) - blood cx no growth @ 2 days, urine cx negative - PT/OT - NPO for ERCP today with GI CKD stage 3 acute on chronic- resolving - BUN/Cr: 17/1.7 - GFR: 47 - gentle hydration - continue to follow CMP HTN - chronic, uncontrolled - BNP 4620, trop neg - Added Norvasc 5mg - continue to monitor Hypokalemia -resolved. Diet NPO at this time for ERCP DVT ppx - lovenox 30mg SC - SCD
--- NOTE | 2019-01-23 23:22 | CP.PCM.PN ---
Subjective - Date & Time of Evaluation Date of Evaluation: 01/23/19 Time of Evaluation: 23:21 - Subjective Subjective: no overnight events Objective - Vital Signs/Intake and Output Vital Signs (last 24 hours): Temp Pulse Resp BP Pulse Ox 97.4 F L 68 20 147/71 96 01/23/19 17:00 01/23/19 17:00 01/23/19 17:00 01/23/19 17:00 01/23/19 17:00 Intake and Output: 01/23/19 01/24/19 18:59 06:59 Output Total 10 Balance -10 - Medications Medications: Current Medications Acetaminophen (Tylenol 325 Mg Supp) 325 mg OR Q4 PRN PRN Reason: Pain, Mild (1-3) Amlodipine Besylate (Norvasc) 10 mg PO DAILY [facility] Last Admin: 01/23/19 09:12 Dose: 10 mg Piperacillin Sod/Tazobactam (Sod 2.25 gm/ Sodium Chloride) 100 mls @ 100 mls/hr IVPB Q6 [facility]; Protocol Last Admin: 01/23/19 21:24 Dose: 100 mls/hr Lactated Ringer's (Lactated Ringer's) 1,000 mls @ 80 mls/hr IV .[id number] [facility] Last Admin: 01/23/19 21:24 Dose: 80 mls/hr Ondansetron HCl (Zofran Inj) 4 mg IVP Q4 PRN PRN Reason: Nausea/Vomiting Tramadol HCl (Ultram) 50 mg PO Q6 PRN PRN Reason: Pain, moderate (4-7) Last Admin: 01/20/19 21:44 Dose: 50 mg - Labs Labs: 01/23/19 06:15 01/23/19 06:15 PT 13.5 Seconds (9.8-13.1) H 01/14/19 04:25 INR 1.2 01/14/19 04:25 APTT 32.3 Seconds (25.6-37.1) 01/14/19 04:25 - Head Exam Head Exam: NORMOCEPHALIC - Neck Exam Neck Exam: Normal Inspection - Cardiovascular Exam Cardiovascular Exam: REGULAR RHYTHM - GI/Abdominal Exam GI & Abdominal Exam: Soft, Normal Bowel Sounds Assessment and Plan - Assessment and Plan (Free Text) Assessment: 83 yo male with bile leak doing well s/p ercp stent placed repeat ercp in 4-6 weeks
[2019-01-23 23:52] VITALS: RESP 18
[2019-01-24] MEDS: Lactated Ringer's 1,000 ML IV SCH ×2 (01:10→15:13)
[2019-01-24 07:12] LABS: BASO % 0.4 % (0.0-2.0); EOS # 0.1 K/uL (0.0-0.7); EOS % 1.7 % (0.0-4.0); HEMOGLOBIN 9.9 g/dL (12.0-18.0); LYMPH # 0.9 K/uL (1.0-4.3); LYMPH % 12.1 % (20.0-40.0); MEAN CELL VOLUME 88.4 fl (80.0-94.0); MEAN PLATELET VOLUME 7.9 fl (7.2-11.7); MONO # 0.7 K/uL (0.0-0.8); MONO % 9.5 % (0.0-10.0); NEUT # 5.8 K/uL (1.8-7.0); NEUT % 76.3 % (50.0-75.0); NRBC % 0.1 % (0.0-0.0); RBC 3.3 Mil/uL (4.40-5.90); RED CELL DISTRIBUTION WIDTH 13.8 % (11.5-14.5); WHITE BLOOD COUNT 7.6 K/uL (4.8-10.8)
[2019-01-24 07:50] LABS: ALB/GLOB RATIO 0.9 (1.0-2.1); ALBUMIN 2.9 g/dL (3.5-5.0); CALCIUM 7.9 mg/dL (8.4-10.2)
--- NOTE | 2019-01-24 08:27 | CP.PCM.PN ---
<Ian Bartlett - Last Filed: 01/24/19 08:28> Subjective - Date & Time of Evaluation Date of Evaluation: 01/24/19 Time of Evaluation: 07:30 - Subjective Subjective: Surgery Progress Note No new complaints. tolerating regular diet. + BM and flatus. Denies ABD pain. Denies nausea, vomiting, fevers, chills. RUQ Vish 15cc bilious stained serous fluid Objective - Vital Signs/Intake and Output Vital Signs (last 24 hours): Temp Pulse Resp BP Pulse Ox 97.7 F 69 18 136/79 94 L 01/23/19 23:51 01/23/19 23:51 01/23/19 23:51 01/23/19 23:51 01/23/19 23:51 Intake and Output: 01/24/19 01/24/19 06:59 18:59 Output Total 10 Balance -10 - Medications Medications: Current Medications Acetaminophen (Tylenol 325 Mg Supp) 325 mg AL Q4 PRN PRN Reason: Pain, Mild (1-3) Amlodipine Besylate (Norvasc) 10 mg PO DAILY [facility] Last Admin: 01/23/19 09:12 Dose: 10 mg Piperacillin Sod/Tazobactam (Sod 2.25 gm/ Sodium Chloride) 100 mls @ 100 mls/hr IVPB Q6 [facility]; Protocol Last Admin: 01/24/19 03:03 Dose: 100 mls/hr Lactated Ringer's (Lactated Ringer's) 1,000 mls @ 80 mls/hr IV .[id number] [facility] Last Admin: 01/24/19 01:10 Dose: Not Given Ondansetron HCl (Zofran Inj) 4 mg IVP Q4 PRN PRN Reason: Nausea/Vomiting Tramadol HCl (Ultram) 50 mg PO Q6 PRN PRN Reason: Pain, moderate (4-7) Last Admin: 01/20/19 21:44 Dose: 50 mg - Labs Labs: 01/24/19 06:25 01/24/19 06:25 PT 13.5 Seconds (9.8-13.1) H 01/14/19 04:25 INR 1.2 01/14/19 04:25 APTT 32.3 Seconds (25.6-37.1) 01/14/19 04:25 - Constitutional Appears: Non-toxic, No Acute Distress - Head Exam Head Exam: ATRAUMATIC - Eye Exam Eye Exam: EOMI. absent: Scleral icterus - ENT Exam ENT Exam: Mucous Membranes Moist - Respiratory Exam Respiratory Exam: NORMAL BREATHING PATTERN. absent: Accessory Muscle Use, Respiratory Distress - Cardiovascular Exam Cardiovascular Exam: REGULAR RHYTHM. absent: Bradycardia, Tachycardia - GI/Abdominal Exam GI & Abdominal Exam: Soft. absent: Distended, Firm, Guarding, Rigid, Tenderness - Extremities Exam Extremities Exam: absent: Calf Tenderness - Neurological Exam Neurological Exam: Alert, Awake, Oriented x3 - Psychiatric Exam Psychiatric exam: Normal Affect - Skin Skin Exam: Intact, Warm Assessment and Plan - Assessment and Plan (Free Text) Assessment: 83M with acute cholecystitis s/p laparoscopic cholecystectomy POD 9, post operat darren bile leak s/p ERCP and Stent POD 2 Plan: - tolerating regular diet - drain output significantly decreased - monitor drain output - OOB and ambulate - diet as tolerated - further recs per Surgical Attending PGY2 <Cesar Romo - Last Filed: 01/24/19 09:04> Subjective - Date & Time of Evaluation Time of Evaluation: 09:00 - Subjective Subjective: Patient was seen and examined at the bedside. Agree with resident's note above. Objective - Vital Signs/Intake and Output Vital Signs (last 24 hours): Temp Pulse Resp BP Pulse Ox 97.7 F 69 18 136/79 94 L 01/23/19 23:51 01/23/19 23:51 01/23/19 23:51 01/23/19 23:51 01/23/19 23:51 Intake and Output: 01/24/19 01/24/19 06:59 18:59 Output Total 10 Balance -10 - Medications Medications: Current Medications Acetaminophen (Tylenol 325 Mg Supp) 325 mg AL Q4 PRN PRN Reason: Pain, Mild (1-3) Amlodipine Besylate (Norvasc) 10 mg PO DAILY [facility] Last Admin: 01/23/19 09:12 Dose: 10 mg Piperacillin Sod/Tazobactam (Sod 2.25 gm/ Sodium Chloride) 100 mls @ 100 mls/hr IVPB Q6 [facility]; Protocol Last Admin: 01/24/19 03:03 Dose: 100 mls/hr Lactated Ringer's (Lactated Ringer's) 1,000 mls @ 80 mls/hr IV .[id number] [facility] Last Admin: 01/24/19 01:10 Dose: Not Given Ondansetron HCl (Zofran Inj) 4 mg IVP Q4 PRN PRN Reason: Nausea/Vomiting Tramadol HCl (Ultram) 50 mg PO Q6 PRN PRN Reason: Pain, moderate (4-7) Last Admin: 01/20/19 21:44 Dose: 50 mg - Labs Labs: 01/24/19 06:25 01/24/19 06:25 PT 13.5 Seconds (9.8-13.1) H 01/14/19 04:25 INR 1.2 01/14/19 04:25 APTT 32.3 Seconds (25.6-37.1) 01/14/19 04:25 - GI/Abdominal Exam Additional comments: soft, NT, ND, BS+, no rebound, no guarding, incisions clean, no erythema, no drainage, dermobond in place, Vish drain in place with minimal bilious drainage Assessment and Plan - Assessment and Plan (Free Text) Plan: - Continue antibiotics - Pain control - Continue diet - Patient is clear for discharge from the general surgery stand point - Patient will be discharged with Vish drain - Patient will follow up with me in the office in 1 week for post-op visit
[2019-01-24 09:30] VITALS: BP 143/82; PULSE 81
[2019-01-24 10:11] VITALS: TEMP 97.9; O2SAT 95
--- NOTE | 2019-01-24 11:45 | CP.PCM.DIS ---
Provider - Provider Date of Admission: 01/11/19 22:39 Attending physician: Karthik Hare MD Consults: 01/11/19 22:37 Surgery [General Surgery Consult] Stat Comment: Consulting Provider: Cesar Romo Consulting Physician: Cesar Romo Reason for Consult: acute cholecystitis 01/12/19 16:19 Cardiology Consult Routine Comment: Consulting Provider: Javed Nielsen V Consulting Physician: Javed Nielsen V Reason for Consult: Cardiology clearance 01/13/19 16:09 Social Work Referral Routine Comment: home service Physician Instructions: Reason For Exam: home services 01/13/19 16:11 Psychiatry Consult Routine Comment: Consulting Provider: Cooper Green Consulting Physician: Cooper Green Reason for Consult: Dementia eval 01/13/19 16:12 Pastoral Care Referral Routine Comment: Physician Instructions: Reason For Exam: Advanced directives 01/17/19 10:34 Gastroenterology Consult Routine Comment: Consulting Provider: Víctor Vogel Consulting Physician: Víctor Vogel Reason for Consult: s/p lap daysi (POD 2)- leaking bile Time Spent in preparation of Discharge (in minutes): 20 Diagnosis - Discharge Diagnosis (1) Acute cholecystitis Status: Resolved Hospital Course - Lab Results Lab Results: Micro Results 01/11/19 17:45 Blood Blood Culture - Final NO GROWTH AFTER 5 DAYS 01/11/19 17:45 Blood Gram Stain - Final TEST NOT PERFORMED 01/11/19 18:00 Blood Blood Culture - Final NO GROWTH AFTER 5 DAYS 01/11/19 18:00 Blood Gram Stain - Final TEST NOT PERFORMED 01/12/19 13:00 Urine Random Urine Culture - Final No Growth (<1,000 CFU/ML) Most Recent Lab Values WBC 7.6 K/uL (4.8-10.8) 01/24/19 06:25 RBC 3.30 Mil/uL (4.40-5.90) L 01/24/19 06:25 Hgb 9.9 g/dL (12.0-18.0) L 01/24/19 06:25 Hct 29.2 % (35.0-51.0) L 01/24/19 06:25 MCV 88.4 fl (80.0-94.0) 01/24/19 06:25 MCH 30.0 pg (27.0-31.0) 01/24/19 06:25 MCHC 34.0 g/dL (33.0-37.0) 01/24/19 06:25 RDW 13.8 % (11.5-14.5) 01/24/19 06:25 Plt Count 398 K/uL (130-400) 01/24/19 06:25 MPV 7.9 fl (7.2-11.7) 01/24/19 06:25 Neut % (Auto) 76.3 % (50.0-75.0) H 01/24/19 06:25 Lymph % (Auto) 12.1 % (20.0-40.0) L 01/24/19 06:25 Butts % (Auto) 9.5 % (0.0-10.0) 01/24/19 06:25 Eos % (Auto) 1.7 % (0.0-4.0) 01/24/19 06:25 Baso % (Auto) 0.4 % (0.0-2.0) 01/24/19 06:25 Neut # (Auto) 5.8 K/uL (1.8-7.0) 01/24/19 06:25 Lymph # (Auto) 0.9 K/uL (1.0-4.3) L 01/24/19 06:25 Butts # (Auto) 0.7 K/uL (0.0-0.8) 01/24/19 06:25 Eos # (Auto) 0.1 K/uL (0.0-0.7) 01/24/19 06:25 Baso # (Auto) 0.0 K/uL (0.0-0.2) 01/24/19 06:25 Neutrophils % (Manual) 91 % (42-75) H 01/16/19 04:25 Band Neutrophils % 1 % (0-2) 01/11/19 17:45 Lymphocytes % (Manual) 6 % (20-50) L 01/16/19 04:25 Monocytes % (Manual) 3 % (0-10) 01/16/19 04:25 Eosinophils % (Manual) 1 % (0-7) 01/11/19 17:45 Platelet Estimate Normal (NORMAL) 01/16/19 04:25 Large Platelets Present 01/16/19 04:25 RBC Morphology Normal (NORMAL) 01/11/19 17:45 Hypochromasia (manual) Slight 01/16/19 04:25 PT 13.5 Seconds (9.8-13.1) H 01/14/19 04:25 INR 1.2 01/14/19 04:25 APTT 32.3 Seconds (25.6-37.1) 01/14/19 04:25 pO2 44 mm/Hg (30-55) 01/11/19 18:40 VBG pH 7.42 (7.32-7.43) 01/11/19 18:40 VBG pCO2 37 mmHg (40-60) L 01/11/19 18:40 VBG HCO3 24.3 mmol/L 01/11/19 18:40 VBG Total CO2 25.1 mmol/L (22-28) 01/11/19 18:40 VBG O2 Sat (Calc) 88.0 % (40-65) H 01/11/19 18:40 VBG Base Excess -0.2 mmol/L (0.0-2.0) L 01/11/19 18:40 VBG Potassium 4.2 mmol/L (3.6-5.2) 01/11/19 18:40 Sodium 136.0 mmol/L (132-148) 01/11/19 18:40 Chloride 103.0 mmol/L (98-107) 01/11/19 18:40 Glucose 136 mg/dL (75-110) H 01/11/19 18:40 Lactate 1.8 mmol/L (0.7-2.1) 01/11/19 18:40 FiO2 21.0 % 01/11/19 18:40 Crit Value Called To Dr lashon schroeder 01/11/19 18:18 Crit Value Called By Zoey henriquez rt 01/11/19 18:18 Crit Value Read Back Y 01/11/19 18:18 Blood Gas Notified Time 18301/11/19 18:18 Sodium 139 mmol/l (132-148) 01/24/19 06:25 Potassium 3.4 MMOL/L (3.6-5.0) L 01/24/19 06:25 Chloride 103 mmol/L (98-107) 01/24/19 06:25 Carbon Dioxide 26 mmol/L (22-30) 01/24/19 06:25 Anion Gap 13 (10-20) 01/24/19 06:25 BUN 20 mg/dl (9-20) 01/24/19 06:25 Creatinine 1.6 mg/dl (0.8-1.5) H 01/24/19 06:25 Est GFR ( Amer) 50 01/24/19 06:25 Est GFR (Non-Af Amer) 41 01/24/19 06:25 POC Glucose (mg/dL) 139 mg/dL (65-110) H 01/11/19 17:42 Random Glucose 101 mg/dL (75-110) 01/24/19 06:25 Calcium 7.9 mg/dL (8.4-10.2) L 01/24/19 06:25 Phosphorus 2.4 mg/dl (2.5-4.5) L 01/19/19 05:09 Magnesium 1.9 MG/DL (1.6-2.3) 01/19/19 05:09 Total Bilirubin 0.5 mg/dl (0.2-1.3) 01/24/19 06:25 Direct Bilirubin 0.4 mg/ml (0.0-0.4) 01/18/19 04:35 AST 83 U/L (17-59) H D 01/24/19 06:25 ALT 94 U/L (21-72) H 01/24/19 06:25 Alkaline Phosphatase 210 U/L (38-126) H D 01/24/19 06:25 Troponin I 0.0390 ng/mL (0.00-0.120) 01/11/19 17:45 NT-Pro-B Natriuret Pep 7620 pg/ml (0-900) H 01/11/19 17:45 Total Protein 5.9 G/DL (6.3-8.2) L 01/24/19 06:25 Albumin 2.9 g/dL (3.5-5.0) L 01/24/19 06:25 Globulin 3.1 gm/dL (2.2-3.9) 01/24/19 06:25 Albumin/Globulin Ratio 0.9 (1.0-2.1) L 01/24/19 06:25 Lipase 19 U/L (23-300) L 01/11/19 17:45 Venous Blood Potassium 4.2 mmol/L (3.6-5.2) 01/11/19 18:40 Urine Color Yellow (YELLOW) 01/12/19 13:00 Urine Clarity Cloudy (Clear) 01/12/19 13:00 Urine pH 5.0 (5.0-8.0) 01/12/19 13:00 Ur Specific Morton 1.020 (1.003-1.030) 01/12/19 13:00 Urine Protein 30 mg/dL (NEGATIVE) 01/12/19 13:00 Urine Glucose (UA) Neg mg/dL (NEGATIVE) 01/12/19 13:00 Urine Ketones Negative mg/dL (NEGATIVE) 01/12/19 13:00 Urine Blood Moderate (NEGATIVE) 01/12/19 13:00 Urine Nitrate Negative (NEGATIVE) 01/12/19 13:00 Urine Bilirubin Negative (NEGATIVE) 01/12/19 13:00 Urine Urobilinogen 0.2-1.0 mg/dL (0.2-1.0) 01/12/19 13:00 Ur Leukocyte Esterase Neg Gamaliel/uL (Negative) 01/12/19 13:00 Urine RBC (Auto) 7 /hpf (0-3) H 01/12/19 13:00 Urine Microscopic WBC 5 /hpf (0-5) 01/12/19 13:00 Amorphous Sediment Rare /ul (<OCC) H 01/12/19 13:00 Blood Type B POSITIVE 01/15/19 13:20 Blood Type Confirm B POSITIVE 01/15/19 05:05 Antibody Screen Negative 01/15/19 13:20 BBK History Checked No verified bt 01/15/19 13:20 - Hospital Course Hospital Course: 83 y/o male with PMH of HTN presented to [facility] ED with abdominal pain. He was damitted and diagnosed with Sepsis, acute Cholelithiasis and cholecystitis. Surgery was consulted and patient underwent lap cholecystectomy which showed Acute Gangrenous Cholecystitis and cholelithiasis. Vish drain was placed and d rained minimal fluid after post-op day 1. ERCP was then done for stent placement due to billiary leak. Pt tolerated all procedures well; afebrile, ambulating and tolerating PO without difficulty. Pt surgically and medically cleared for discharge to home with PO antibiotics and drain in place - will be removed by surgical team outpatient in 1 week, stent removal from biliary tree in 6 weeks. Daughter - Mindy [phone] made aware of outpatient follow-up necessity. Discharge Exam - Head Exam Head Exam: ATRAUMATIC - Respiratory Exam Respiratory Exam: NORMAL BREATHING PATTERN, UNREMARKABLE. absent: Respiratory Distress - Cardiovascular Exam Cardiovascular Exam: REGULAR RHYTHM - GI/Abdominal Exam GI & Abdominal Exam: Normal Bowel Sounds, Tenderness (mild around drainage site but no erythema, pus or swelling.), Unremarkable - Neurological Exam Neurological exam: Alert - Psychiatric Exam Psychiatric exam: Normal Affect, Normal Mood - Skin Skin Exam: Normal Color, Warm Discharge Plan - Discharge Medications Prescriptions: Amoxicillin/Clavulanate [Augmentin 250 MG-125 MG] 1 tab PO Q12 7 Days #14 tab - Follow Up Plan Condition: FAIR Disposition: HOME/ ROUTINE Instructions: Cholecystectomy, Laparoscopic Surgery, Hemovac Drain, How to Keep Track of Your Drainage Additional Instructions: D/C with Drain in place. Follow up in office in 1 week for drain removal. No heavy lifting > 20lbs for 4-6 weeks. will clear for lifting in clinic. Referrals: Cesar Romo MD [Staff Provider] -
--- NOTE | 2019-01-28 14:27 | RAD ---
Date of service: 01/22/2019 PROCEDURE: ERCP HISTORY: bile leak COMPARISON: 01/17/2019 radionuclide study to assess suspected bile leak status post cholecystectomy. TECHNIQUE: Standard protocol for this study/examination. FINDINGS: Submitted images from the current procedure: 3.0. IMPRESSION: Less than 1 hr fluoroscopic assistance provided during performance of the procedure.
--- NOTE | 2019-01-29 10:27 | PQF ---
PROVIDER RESPONSE TEXT: Patient had necrotic gallbladder and gangrenous cyst duct, i put an endoloop on the gangrenous cyst d uct remnant but it did not hold secondary to gangreene. Bile leak was not a complication of surgery b ut of the disease process that patient had. REVIEWER QUERY TEXT: Procedure Clarification Physician?s Documentation Request This Form is Not a Permanent Document in the Medical Record Pt Name: LELAND MORGAN MR #: [id number] Payor: MEDICARE PART A Unit/Bed: [id number] Adm Date: 01/11/2019 10:39:00 PM Reviewer: Jinny Acosta Ext. Query Date: 01/25/2019 1:44:00 PM Procedure Clarification [id number] By submitting this query, we are merely seeking further clarification of documentation to accurately reflect all conditions that you are monitoring, evaluating, treating or that extend the hospitalizati on or utilize additional resources of care. Please utilize your independent clinical judgment when ad dressing the question(s) below. Dear Doctor Cesar Romo, The patient?s Clinical Indicators include: xx Your help is needed in clarifying if bile leak was present on admission or a complication of surgery. PLEASE DOCUMENT ANY ADDITIONAL DIAGNOSES AND/OR SPECIFICITY IN THE PROGRESS NOTES AND/OR DISCHARGE KURTZ MMARY. Clinically unable to determine/unknown Disagree with the above request Need to discuss Query created by: Jinny Acosta on 01/25/2019 1:44 PM Electronically signed by: Cesar Romo MD 01/29/2019 10:24 AM
== END 2019-01-24 16:39 | disposition home or self-care (01) | DRG 854 ==
LOC: H.ER 17:26 → H.ERHOLD 22:39 → H.TEL 23:53 → H.MEDSURG1 01-22 16:10
PROVIDERS: ADMIT Internal Medicine; ATTEND Internal Medicine
PROC: 0FT44ZZ Resection of Gallbladder, Percutaneous Endoscopic Approach (ICD-10-PCS; principal; 2019-01-15 12:00)
PROC: 0F798DZ Dilation of Common Bile Duct with Intraluminal Device, Via Natural or Artificial Opening Endoscopic (ICD-10-PCS; 2019-01-22)
PROC: 0FC98ZZ Extirpation of Matter from Common Bile Duct, Via Natural or Artificial Opening Endoscopic (ICD-10-PCS; 2019-01-22)
DX: A41.9 Sepsis, unspecified organism (principal); N17.9 Acute kidney failure, unspecified; K80.62 Calculus of gallbladder and bile duct with acute cholecystitis without obstruction; D62 Acute posthemorrhagic anemia; N18.3 Chronic kidney disease, stage 3 (moderate); F01.50 Vascular dementia, unspecified severity, without behavioral disturbance, psychotic disturbance, mood disturbance, and anxiety; R65.20 Severe sepsis without septic shock; I12.9 Hypertensive chronic kidney disease with stage 1 through stage 4 chronic kidney disease, or unspecified chronic kidney disease; K82.A1 Gangrene of gallbladder in cholecystitis; E87.6 Hypokalemia